=== PATIENT | female | born 1935 | race Caucasian/White ===

== ENCOUNTER 2016-07-17 10:30 | Observation (INO) | payer MEDICARE, OTHER ==
[2016-07-17] MEDS ORDERED: Sodium Chloride 0.9% 1,000 ML IV ONE (11:20)
--- NOTE | 2016-07-17 12:03 | EDM.PDOC ---
[id number]: 07/17/16 10:30 Source: Reports: Patient, EMS, Family History Limitations: Reports: Altered mental status, Physical impairment - History of Present Illness INITIAL COMMENTS - FREE TEXT/NARRATIVE: 80 y.o.w.f. with a h/o a fib, came to the ed today by ems after sutures were removed at her r eris. The skin cancer at her r eris, which was removed and sutures were applied to close the wound 7 days ago. No trauma. Wound at her r eris was profoundly bleeding, no pulsating bleed. Pt denied pain, Pt is on blood thinners S/P an aortic valve replacement. Her INR was 2.7 in the clinic today. Symptom Onset Date: 07/17/16 Symptom Onset Time: 09:00 Timing/Duration: Reports: Hour(s): Severity: mild Location, General: Reports: head - Related Data Allergies/ADRs: Allergies Allergy/AdvReac Type Severity Reaction Status Date / Time amiodarone Allergy Unknown Cannot Verified 05/04/16 15:59 Remember lidocaine Allergy Unknown Cannot Verified 05/04/16 15:59 Remember lincomycin HCl Allergy Unknown Cannot Verified 05/04/16 15:59 [From Lincocin] Remember minocycline HCl Allergy Unknown Cannot Verified 05/04/16 15:59 [From Minocin] Remember red (food color) Allergy Unknown Cannot Verified 05/04/16 15:59 Remember Skin Cleanser Combination Allergy Unknown Cannot Verified 05/04/16 15:59 No.4 Remember [From Minocin] Sulfa (Sulfonamide Allergy Unknown Cannot Verified 05/04/16 15:59 Antibiotics) Remember Home Meds: Home Meds Cholecalciferol (Vitamin D3) [Vitamin D3] 1,000 unit PO DAILY@1200 01/23/13 [ History] Isosorbide Mononitrate [Isosorbide Mononitrate ER] 15 mg PO BID 01/23/13 [ History] Latanoprost 1 drop EYEBOTH BEDTIME 01/23/13 [History] Lisinopril 5 mg PO DAILY 01/23/13 [History] Metoprolol Tartrate 50 mg PO DAILY 01/23/13 [History] Potassium Chloride [Klor-Con 8] 16 meq PO DAILY@1700 01/23/13 [History] Cyanocobalamin (Vitamin B-12) [B-12 Compliance] 1,000 mcg IM Q30D 05/04/16 [ History] OLANZapine [ZyPREXA] 2.5 mg PO DAILY 05/04/16 [History] OLANZapine [ZyPREXA] 10 mg PO BEDTIME 05/04/16 [History] Acetaminophen 650 mg PO Q4H PRN 07/17/16 [History] Polyethylene Glycol 3350 [MiraLAX] 17 gm PO DAILY 07/17/16 [History] Vilazodone [Viibryd] 20 mg PO BEDTIME 07/17/16 [History] Warfarin [Coumadin] 2.5 mg PO DAILY@1700 07/17/16 [History] buPROPion [Wellbutrin XL] 300 mg PO DAILY 07/17/16 [History] Ferrous Sulfate 325 mg PO DAILY #30 tablet 07/18/16 [Rx] Social & Family History - Family History Family Medical History: Noncontributory - Tobacco Use Smoking Status *Q: Never Smoker Second Hand Smoke Exposure: No - Caffeine Use Caffeine Use: Reports: None - Alcohol Use Days Per Week of Alcohol Use: 0 - Recreational Drug Use Recreational Drug Use: No ED ROS GENERAL - Review of Systems Review Of Systems: Unable To Obtain ED EXAM, GENERAL - Physical Exam Exam: See Below Exam Limited By: Physical impairment General Appearance: alert, WD/WN, mild distress Eye Exam: bilateral eye: normal inspection (periorbital edema left eye, no trauma) Ears: normal external exam Ear Exam: bilateral ear: auricle normal Nose: normal inspection, normal mucosa Throat/Mouth: Normal inspection, Normal lips Head: normocephalic, other (Blleeing LAC r ant eris) Neck: normal inspection, supple, non-tender Respiratory/Chest: no respiratory distress, lungs clear (poor insp effort), chest non-tender Cardiovascular: normal peripheral pulses, irregularly irregular Peripheral Pulses: 1+: femoral (L), femoral (R) GI/Abdominal: normal bowel sounds, soft, non tender, no organomegaly, no distention, no abnormal bruit (Female) Exam: Deferred Rectal (Female) Exam: Deferred Back Exam: normal inspection, full range of motion Extremities: normal inspection Neurological: alert, CN II-XII intact Psychiatric: depressed mood Skin Exam: Warm, Pallor Lymphatic: no adenopathy ED CARDIOLOGY PROCEDURES - Additional/Other Procedure(s) Other (Free Text) Procedure(s): Procedure: LAC repair r eris. Wound measured 2 cm in length, clean edges, full thickness LAC. The wound was repaired under aseptic technique. 2 cc 1% lido. irrigated with betadiene. 8 sutures were applied using 4/0 ethilon sutures. Wound was closed, dressing was applied, no complication. EKG INTERPRETATION EKG Date: 07/17/16 Time: 11:45 Rhythm: a-fib Rate (beats/min): 114 [place]: RAD-right axis deviation P-wave: absent QRS: RBBB ST-T: normal QT: prolonged Comparison: NA - no prior EKG Course - Vital Signs Text/Narrative:: 80 y.o.w.f. came to the ed today by ems after sutures were removed at her r eris. The skin cancer at her r eris, which was removed and sutures were applied to close the wound 7 days ago. No trauma. Wound at her r eris was profoundly bleeding, no pulsating bleed. Pt denied pain, Pt is on blood thinners S/P an aortic valve replacement. Her INR was 2.7 in the clinic today. PE: pale and weak appearing 80 y.o.w.f with a bleeding LAR r ant eris. BP 114/ 78 Procedure: Please see note above Labs: CBC was nl, INR was 2.45 ECG: A fib with RVR rate 114 Impression: Skin CA, S/P Vasovagal Syncopal episode (DDx Sx) afib with RVR (105- 118), dehydration, LAC r eris, repaired, Gen weakness/Dizziness with activity. DNR/DNI Reexam: after the wound was repaired, pt was sitting in the wheel chair and suddenly was unresponsive to voice for about 5 miin till she was put back in her bed. BP was 101/76 puls 114, afib. was following commands. Denied pain. it appeared, pt had a vasovagal syncopy what she had in the past as per . As per , pt is a DNR/DNI. Tx: NS Reexam: afib with a rate 105-118, pt was eating while in the wheel chair. After she ate, pt got extremely Dizzy when she was attempting to get up to walk. Consultation: Dr. Nova: Accepted the pt for admission to tele OBS Last Recorded V/S: Last Vital Signs Temp 36.9 C 07/18/16 07:40 Pulse 91 07/18/16 08:43 Resp 18 07/18/16 07:40 BP 103/68 07/18/16 08:43 Pulse Ox 97 07/18/16 07:40 - Orders/Labs/Meds Labs: Laboratory Tests 07/17/16 07/17/16 07/17/16 Range/Units 11:30 11:30 11:30 WBC 9.3 (4.5-12.0) X10-3/uL RBC 3.66 (3.23-5.20) x10(6)uL Hgb 11.6 (11.5-15.5) g/dL Hct 34.1 (30.0-51.3) % MCV 93.1 (80-96) fL MCH 31.7 (27.7-33.6) pg MCHC 34.1 (32.2-35.4) g/dL RDW 13.3 (11.5-15.5) % Plt Count 199 (125-369) X10(3)uL MPV 10.1 (7.4-10.4) fL Add Manual Diff Yes Neutrophils % (Manual) 80 (46-82) % Band Neutrophils % 1 (0-6) % Lymphocytes % (Manual) 13 (13-37) % Monocytes % (Manual) 6 (4-12) % PT 24.8 H (8.7-11.1) INR 2.42 H (0.89-1.13) Sodium 133 L (135-145) mmol/L Potassium 4.4 (3.5-5.3) mmol/L Chloride 103 (100-110) mmol/L Carbon Dioxide 24 (23-29) mmol/L BUN 25 H (8-23) mg/dL Creatinine 1.0 (0.6-1.3) mg/dL Est Cr Clr Drug Dosing TNP Estimated GFR (MDRD) 54 L (>60) BUN/Creatinine Ratio 25.0 H (9-20) Glucose 131 H (80-116) mg/dL Lactic Acid (0.5-2.2) mmol/L Calcium 8.7 (8.6-10.2) mg/dL Troponin I (0.02-0.06) NG/ML B-Natriuretic Peptide (0-100) pg/mL 03/31/17 03/31/17 03/31/17 Range/Units 11:30 11:30 11:30 WBC (4.5-12.0) X10-3/uL RBC (3.23-5.20) x10(6)uL Hgb (11.5-15.5) g/dL Hct (30.0-51.3) % MCV (80-96) fL MCH (27.7-33.6) pg MCHC (32.2-35.4) g/dL RDW (11.5-15.5) % Plt Count (125-369) X10(3)uL MPV (7.4-10.4) fL Add Manual Diff Neutrophils % (Manual) (46-82) % Band Neutrophils % (0-6) % Lymphocytes % (Manual) (13-37) % Monocytes % (Manual) (4-12) % PT (8.7-11.1) INR (0.89-1.13) Sodium (135-145) mmol/L Potassium (3.5-5.3) mmol/L Chloride (100-110) mmol/L Carbon Dioxide (23-29) mmol/L BUN (8-23) mg/dL Creatinine (0.6-1.3) mg/dL Est Cr Clr Drug Dosing Estimated GFR (MDRD) (>60) BUN/Creatinine Ratio (9-20) Glucose (80-116) mg/dL Lactic Acid 1.2 (0.5-2.2) mmol/L Calcium (8.6-10.2) mg/dL Troponin I 0.01 L (0.02-0.06) NG/ML B-Natriuretic Peptide 54 (0-100) pg/mL Meds: Medications Discontinued Medications Generic Name Dose Route Start Last Admin Trade Name Freq PRN Reason Stop Dose Admin Acetaminophen 650 mg 07/17/16 17:40 Tylenol PO Q4H PRN Pain/Fever Cholecalciferol 1,000 units 07/18/16 12:00 Vitamin D3 PO DAILY@1200 DEX Heparin Sodium (Porcine) 500 units 07/17/16 14:00 07/18/16 09:00 Heparin Lock Flush 100 Units/Ml Syringe FLUSH 500 units ASDIRECTED PRN Administration Other Sodium Chloride 1,000 mls @ 500 mls/hr 07/17/16 11:20 07/17/16 11:35 Normal Saline IV 07/17/16 13:19 500 mls/hr .BOLUS ONE Administration Sodium Chloride 1,000 mls @ 75 mls/hr 07/17/16 17:45 07/17/16 18:43 Normal Saline IV 75 mls/hr ASDIRECTED DEX Administration Isosorbide Mononitrate 15 mg 07/17/16 21:00 07/18/16 08:43 Imdur PO 15 mg BID DEX Administration Latanoprost 0 ml 07/17/16 21:00 Xalatan 0.005% Ophth Soln EYEBOTH BEDTIME DEX Lidocaine HCl 2 ml 07/17/16 16:00 Xylocaine 1% INFILT 07/17/16 16:01 .STK-MED ONE Lisinopril 5 mg 07/18/16 09:00 07/18/16 08:43 Prinivil PO 5 mg DAILY DEX Administration Metoprolol Succinate 50 mg 07/18/16 09:00 07/18/16 08:43 Toprol Xl PO 50 mg DAILY DEX Administration Non-Formulary Medication 1,000 mcg 07/17/16 17:45 Cyanocobalamin (Vitamin B-12) [B-12 Compliance] IM Q30D DEX Vilazodone [Viibryd] 20 mg 07/17/16 21:00 07/17/16 20:58 20mg Own Med PO 20 mg BEDTIME DEX Administration Bupropion [ 300 mg 07/18/16 09:00 07/18/16 08:43 Wellbutrin Xl] 300mg PO 300 mg Own Med DAILY DEX Administration Olanzapine 2.5 mg 07/18/16 09:00 07/18/16 08:43 Zyprexa PO 2.5 mg DAILY DEX Administration Olanzapine 10 mg 07/17/16 21:00 07/17/16 20:58 Zyprexa PO 10 mg BEDTIME DEX Administration Ondansetron HCl 8 mg 07/17/16 14:16 Zofran IV Q4H PRN Nausea/Vomiting Polyethylene Glycol 17 gm 07/18/16 09:00 Miralax PO DAILY DEX Potassium Chloride 16 meq 07/18/16 17:00 Klor-Con 8 PO DAILY@1700 DEX Sodium Chloride 10 ml 07/17/16 14:16 04/01/17 09:00 Saline Flush FLUSH 10 ml ASDIRECTED PRN Administration Keep Vein Open Warfarin Sodium 2.5 mg 07/17/16 17:00 07/17/16 18:30 Coumadin PO 2.5 mg DAILY@1700 DEX Administration Departure - Departure Time of Disposition: 11:20 Disposition: Admitted As Inpatient 68 Condition: fair Clinical Impression: Syncopal episodes Qualifiers: Syncope type: vasovagal syncope Qualified Code(s): R55 - Syncope and collapse
[2016-07-17] MEDS ORDERED: Sodium Chloride 0.9% 10 ML Syringe FLUSH PRN (14:16)
[2016-07-17] MEDS ORDERED: Ondansetron 4 MG/2 ML SDV IV PRN (14:16)
[2016-07-17] MEDS ORDERED: Lidocaine 1% 20 ML MDV INFILT ONE (16:00)
[2016-07-17] MEDS ORDERED: WARFARIN 2.5 MG PO SCH (17:00)
--- NOTE | 2016-07-17 17:39 | PCM.HP ---
H&P History of Present Illness - General Date of Service: 07/17/16 Admit Problem/Dx: Admission Diagnosis/Problem Admission Diagnosis/Problem Weakness Source of Information: Patient, Significant Other - History of Present Illness Initial Comments - Free Text/Narative: This is a 80-year-old female patient that had a skin cancer on the left temporal region removed a week ago. She's on Coumadin for heart valve and atrial fibrillation. She was bridged and restarted on her Coumadin. Today at [facility] they remove the sutures. After they removed the sutures the wound started bleeding profusely. They called the ambulance and brought her to the emergency room. While in the ER patient had a vasovagal. They observed her for a while and she was unable to walk. Her atrial fibrillation rate was 105 and they felt she should be observed. She was admitted. They resutured her wound and put a compression bandage on to stop bleeding. She states she feels better now with less weakness and no dizziness. - Related Data Allergies/Adverse Reactions: Allergies Allergy/AdvReac Type Severity Reaction Status Date / Time amiodarone Allergy Unknown Cannot Verified 05/04/16 15:59 Remember lidocaine Allergy Unknown Cannot Verified 05/04/16 15:59 Remember lincomycin HCl Allergy Unknown Cannot Verified 05/04/16 15:59 [From Lincocin] Remember minocycline HCl Allergy Unknown Cannot Verified 05/04/16 15:59 [From Minocin] Remember red (food color) Allergy Unknown Cannot Verified 05/04/16 15:59 Remember Skin Cleanser Combination Allergy Unknown Cannot Verified 05/04/16 15:59 No.4 Remember [From Minocin] Sulfa (Sulfonamide Allergy Unknown Cannot Verified 05/04/16 15:59 Antibiotics) Remember Home Medications: Home Meds Cholecalciferol (Vitamin D3) [Vitamin D3] 1,000 unit PO DAILY@1200 01/23/13 [ History] Isosorbide Mononitrate [Isosorbide Mononitrate ER] 15 mg PO BID 01/23/13 [ History] Latanoprost 1 drop EYEBOTH BEDTIME 01/23/13 [History] Lisinopril 5 mg PO DAILY 01/23/13 [History] Metoprolol Tartrate 50 mg PO DAILY 01/23/13 [History] Potassium Chloride [Klor-Con 8] 16 meq PO DAILY@1700 01/23/13 [History] Cyanocobalamin (Vitamin B-12) [B-12 Compliance] 1,000 mcg IM Q30D 05/04/16 [ History] OLANZapine [ZyPREXA] 2.5 mg PO DAILY 05/04/16 [History] OLANZapine [ZyPREXA] 10 mg PO BEDTIME 05/04/16 [History] Acetaminophen 650 mg PO Q4H PRN 07/17/16 [History] Polyethylene Glycol 3350 [MiraLAX] 17 gm PO DAILY 07/17/16 [History] Vilazodone [Viibryd] 20 mg PO BEDTIME 07/17/16 [History] Warfarin [Coumadin] 2.5 mg PO DAILY@1700 07/17/16 [History] buPROPion [Wellbutrin XL] 300 mg PO DAILY 07/17/16 [History] Past Medical History HEENT History: Reports: Cataract Cardiovascular History: Reports: Afib, Heart valve replacement, Hypertension, Other (see below) Other Cardiovascular History: mitral valve [employer] History: Reports: Other OB/BYN History: partial hysterectomy? unsure. Musculoskeletal History: Reports: Other (see below) Other Musculoskeletal History: right knee pain. Hydrocortison shots on right knee Neurological History: Reports: Other (see below) Other Neuro History: dementia Psychiatric History: Reports: Dementia, Depression Other Hematologic History: takes vitamin b-12 Dermatologic History: Reports: Melanoma Other Dermatologic History: mole taken off on head. - Infectious Disease History Infectious Disease History: Reports: Chicken pox, Measles - Past Surgical History HEENT Surgical History: Reports: Cataract surgery Cardiovascular Surgical History: Reports: Valve replacement Neurological Surgical History: Reports: None Musculoskeletal Surgical History: Reports: None Dermatological Surgical History: Reports: Skin biopsy Social & Family History - Family History Family Medical History: Noncontributory - Tobacco Use Smoking Status *Q: Never Smoker Second Hand Smoke Exposure: No - Caffeine Use Caffeine Use: Reports: None - Alcohol Use Days Per Week of Alcohol Use: 0 - Recreational Drug Use Recreational Drug Use: No H&P Review of Systems - Review of Systems: Review Of Systems: See Below General: Reports: no symptoms HEENT: Reports: no symptoms Pulmonary: Reports: No Symptoms Cardiovascular: Reports: no symptoms Gastrointestinal: Reports: No symptoms Genitourinary: Reports: no symptoms Musculoskeletal: Reports: no symptoms Skin: Reports: other (See history of present illness) Psychiatric: Reports: depression Neurological: Reports: No Symptoms Immunologic: Reports: no symptoms Exam - Exam Exam: See Below - Vital Signs Vital Signs: Last Vital Signs Temp 97.6 F 07/17/16 14:16 Pulse 89 07/17/16 14:16 Resp 20 07/17/16 14:16 BP 111/75 07/17/16 14:16 Pulse Ox 99 07/17/16 14:16 Weight: 206 lb 1 oz - Exam General: alert, oriented, cooperative HEENT: Hearing intact, Posterior pharynx clear, Pupils reactive, TMs clear, Other (Left eye is swollen with some ecchymosis) Neck: supple, trachea midline Lungs: Clear to auscultation, Normal respiratory effort Cardiovascular: irregular rhythm, systolic murmur Abdomen: normal bowel sounds, soft. No: organomegaly, tenderness Back Exam: normal inspection Extremities: normal inspection Skin: other (Wound is covered currently with compression bandage. I did not remove it today.) Neuro Extensive - Mental Status: alert, oriented x3 Psychiatric: alert, depressed - Patient Data Result Diagrams: 07/17/16 11:30 07/17/16 11:30 *Q Meaningful Use (ADM) - VTE *Q VTE Criteria *Q: - Stroke *Q Stroke Criteria *Q: - AMI *Q AMI Criteria *Q: - Problem List (1) Weakness SNOMED Code(s): 36925713 ICD Code: R53.1 - WEAKNESS Status: Acute Current Visit: Yes (2) "Fall on same level from slipping, tripping or stumbling " SNOMED Code(s): 251746815 ICD Code: W01.0XXA - FALL SAME LEV FROM SLIP/TRIP W/O STRIKE AGAINST OBJECT, INIT Status: Acute Current Visit: No (3) Afib, Atrial fibrillation SNOMED Code(s): 82568038 ICD Code: I48.91 - UNSPECIFIED ATRIAL FIBRILLATION Status: Acute Current Visit: No Problem List Initiated/Reviewed/Updated: Yes Orders Last 24hrs: Active Orders 24 hr Category Date Time Status Telemetry Monitoring [Cardiac Monitoring] [RC] .As Care 07/17/16 15:30 Active Directed Head wo Cont [CT] Routine Exams 07/17/16 14:24 Taken Medication Orders Heparin Sodium (Porcine) (Heparin Lock Flush 100 Units/Ml Syringe) 500 units FLUSH ASDIRECTED PRN PRN Reason: Other Last Admin: 07/17/16 14:05 Dose: 500 units Ondansetron HCl (Zofran) 8 mg IV Q4H PRN PRN Reason: Nausea/Vomiting Sodium Chloride (Saline Flush) 10 ml FLUSH ASDIRECTED PRN PRN Reason: Keep Vein Open Assessment/Plan Comment:: 1. For observation. 2. Continue compression bandage over the wound. 3. Ambulate with assist. 4. IV fluids. 5. Recheck CBC in the a.m. to see she's lost any significant blood. 6. Monitor her with telemetry to see what her ventricular rate is. 7. Discussed living will status. And she is a DO NOT RESUSCITATE/DO NOT INTUBATE. 8. Patient may take her home pills. 9. Continue Coumadin therapy as previous.
[2016-07-17] MEDS ORDERED: Acetaminophen 325 MG Tab PO PRN (17:40)
[2016-07-17] MEDS ORDERED: [UNRECOGNIZED DRUG - OTHER] IM SCH (17:45)
[2016-07-17] MEDS ORDERED: Sodium Chloride 0.9% 1,000 ML IV SCH (17:45)
[2016-07-17] MEDS ORDERED: CYANOCOBALAMIN 1000 MCG IM SCH (17:45)
[2016-07-17] MEDS: ISOSORBIDE MONONITRATE 30 MG PO SCH (20:58)
[2016-07-17] MEDS ORDERED: Latanoprost 0.005% Ophth Soln 2.5 ML Bottle EYEBOTH SCH (21:00)
[2016-07-17] MEDS ORDERED: VILAZODONE 20 MG PO SCH (21:00)
[2016-07-17] MEDS ORDERED: OLANZAPINE 10 MG PO SCH (21:00)
--- NOTE | 2016-07-18 07:40 | PCM.PN ---
- General Info Date of Service: 07/18/16 Admission Dx/Problem (Free Text): 80-year-old female patient that has no concerns today. She is a blunted affect and responsively slowly which I think is normal for her. She denies any bleeding, dizziness, lightheadedness, chest pain, palpitations, shortness of breath with exertion. - Patient Data Vitals - most recent: Last Vital Signs Temp 98.5 F 07/18/16 02:30 Pulse 104 H 07/18/16 02:30 Resp 20 07/18/16 02:30 BP 106/65 07/18/16 02:30 Pulse Ox 96 07/18/16 02:30 Weight - most recent: 206 lb 1 oz I&O - last 24 hours: Intake & Output 07/17/16 07/18/16 07/18/16 22:59 06:59 14:59 Intake Total 884 Balance 884 Lab Results last 24 hrs: Laboratory Results - last 24 hr 07/18/16 Range/Units 06:18 WBC 7.2 (4.5-12.0) X10-3/uL RBC 3.34 (3.23-5.20) x10(6)uL Hgb 10.0 L (11.5-15.5) g/dL Hct 30.9 (30.0-51.3) % MCV 92.3 (80-96) fL MCH 29.9 (27.7-33.6) pg MCHC 32.4 (32.2-35.4) g/dL RDW 13.5 (11.5-15.5) % Plt Count 165 (125-369) X10(3)uL MPV 9.8 (7.4-10.4) fL Neut % (Auto) 67.7 (46-82) % Lymph % (Auto) 15.6 (13-37) % Delta % (Auto) 11.8 (4-12) % Eos % (Auto) 2 (1.0-5.0) % Baso % (Auto) 3 H (0-2) % Neut # (Auto) 4.9 (1.6-8.3) # Lymph # (Auto) 1.1 (0.6-5.0) # Delta # (Auto) 0.8 (0.0-1.3) # Eos # (Auto) 0.2 (0.0-0.8) # Baso # (Auto) 0.2 (0.0-0.2) # Med Orders - Current: Current Medications Acetaminophen (Tylenol) 650 mg PO Q4H PRN PRN Reason: Pain/Fever Cholecalciferol (Vitamin D3) 1,000 units PO DAILY@1200 [facility] Heparin Sodium (Porcine) (Heparin Lock Flush 100 Units/Ml Syringe) 500 units FLUSH ASDIRECTED PRN PRN Reason: Other Last Admin: 07/17/16 14:05 Dose: 500 units Sodium Chloride (Normal Saline) 1,000 mls @ 75 mls/hr IV ASDIRECTED [facility] Last Admin: 07/17/16 18:43 Dose: 75 mls/hr Isosorbide Mononitrate (Imdur) 15 mg PO BID [facility] Last Admin: 07/17/16 20:58 Dose: 15 mg Latanoprost (Xalatan 0.005% Ophth Soln) ml EYEBOTH BEDTIME [facility] Lisinopril (Prinivil) 5 mg PO DAILY [facility] Metoprolol Succinate (Toprol Xl) 50 mg PO DAILY [facility] Vilazodone [Viibryd] (20mg Own Med ) 20 mg PO BEDTIME [facility] Last Admin: 07/17/16 20:58 Dose: 20 mg Bupropion [ Wellbutrin Xl] 300mg Own Med 300 mg PO DAILY [facility] Olanzapine (Zyprexa) 2.5 mg PO DAILY [facility] Olanzapine (Zyprexa) 10 mg PO BEDTIME [facility] Last Admin: 07/17/16 20:58 Dose: 10 mg Ondansetron HCl (Zofran) 8 mg IV Q4H PRN PRN Reason: Nausea/Vomiting Polyethylene Glycol (Miralax) 17 gm PO DAILY [facility] Potassium Chloride (Klor-Con 8) 16 meq PO DAILY@1700 [facility] Sodium Chloride (Saline Flush) 10 ml FLUSH ASDIRECTED PRN PRN Reason: Keep Vein Open Warfarin Sodium (Coumadin) 2.5 mg PO DAILY@1700 [facility] Last Admin: 07/17/16 18:30 Dose: 2.5 mg Discontinued Medications Sodium Chloride (Normal Saline) 1,000 mls @ 500 mls/hr IV .BOLUS ONE Stop: 07/17/16 13:19 Last Admin: 07/17/16 11:35 Dose: 500 mls/hr Lidocaine HCl (Xylocaine 1%) 2 ml INFILT .STK-MED ONE Stop: 07/17/16 16:01 Non-Formulary Medication (Cyanocobalamin (Vitamin B-12) [B-12 Compliance]) 1, 000 mcg IM Q30D DEX - Exam General: alert, cooperative Lungs: Clear to auscultation, Normal respiratory effort Cardiovascular: No Murmurs, Irregular Rhythm Extremities: no edema Skin: other (Her right eye is swollen with ecchymosis. I did not remove the bandage today.) Psy/Mental Status: alert. No: normal affect, normal mood - Problem List & Annotations (1) Weakness SNOMED Code(s): 45720374 Code(s): R53.1 - WEAKNESS Status: Acute Current Visit: Yes (2) Afib, Atrial fibrillation SNOMED Code(s): 70507770 Code(s): I48.91 - UNSPECIFIED ATRIAL FIBRILLATION Status: Acute Current Visit: No (3) Bleeding from wound SNOMED Code(s): 581383573 Code(s): T14.8 - OTHER INJURY OF UNSPECIFIED BODY REGION Status: Acute Current Visit: Yes - Problem List Review Problem List Initiated/Reviewed/Updated: Yes - My Orders Last 24 Hours: My Active Orders 07/17/16 17:00 Warfarin [Coumadin] 2.5 mg PO DAILY@1700 07/17/16 17:40 Acetaminophen [Tylenol] 650 mg PO Q4H PRN 07/17/16 17:45 Sodium Chloride 0.9% [Normal Saline] 1,000 ml IV ASDIRECTED 07/17/16 21:00 Isosorbide Mononitrate [Imdur] 15 mg PO BID Latanoprost [Xalatan 0.005% Ophth Soln] DOSE ml EYEBOTH BEDTIME OLANZapine [ZyPREXA] 10 mg PO BEDTIME Vilazodone [Viibryd] 20 mg PO BEDTIME 07/18/16 09:00 Lisinopril [Prinivil] 5 mg PO DAILY Metoprolol Succinate [Toprol XL] 50 mg PO DAILY OLANZapine [ZyPREXA] 2.5 mg PO DAILY Polyethylene Glycol 3350 [MiraLAX] 17 gm PO DAILY buPROPion [Wellbutrin XL] 300 mg PO DAILY 07/18/16 12:00 Cholecalciferol (Vitamin D3) [Vitamin D3] 1,000 units PO DAILY@1200 07/18/16 17:00 Potassium Chloride [Klor-Con 8] 16 meq PO DAILY@1700 - Plan Plan:: 1. discharged to [facility] a period 2. Same medications as before. 3. Leave bandage on until Wednesday which is 2 days from now. 4. Follow up with Dr. Moise for suture removal.
--- NOTE | 2016-07-18 07:52 | PCM.DCSUM1 ---
Discharge Summary - Hospital Course Free Text/Narrative:: Hospital course-patient was observed overnight. She was given some IV fluid. Telemetry was ordered. She had a little bit tachycardia occasionally when she had her metoprolol her rate was around the 90s. She is able to walk without any difficulty and was at her normal functioning. She has history of depression and a flat affect which is normal for her. We did not remove the pressure bandage there she dropped her hemoglobin to over 10 from 11. No further bleeding other than she had some swelling in her right eye some ecchymosis. We'll discharge her home with an ferrous sulfate 325 mg for one month. The staff at [facility] a call Dr. Moise informed what happened and let him arrange suture removal for this wound. Brief History: This is a 80-year-old female patient that had a skin cancer on the left temporal region removed a week ago. She's on Coumadin for heart valve and atrial fibrillation. She was bridged and restarted on her Coumadin. Today at [facility] they remove the sutures. After they removed the sutures the wound started bleeding profusely. They called the ambulance and brought her to the emergency room. While in the ER patient had a vasovagal. They observed her for a while and she was unable to walk. Her atrial fibrillation rate was 105 and they felt she should be observed. She was admitted. They resutured her wound and put a compression bandage on to stop bleeding. She states she feels better now with less weakness and no dizziness. - Discharge Data Discharge Date: 07/18/16 Discharge Disposition: Home, Self-Care 01 Condition: Good - Discharge Diagnosis/Problem(s) (1) Weakness SNOMED Code(s): 46077364 ICD Code: R53.1 - WEAKNESS Status: Acute Current Visit: Yes (2) Afib, Atrial fibrillation SNOMED Code(s): 88707928 ICD Code: I48.91 - UNSPECIFIED ATRIAL FIBRILLATION Status: Acute Current Visit: No (3) Bleeding from wound SNOMED Code(s): 453716424 ICD Code: T14.8 - OTHER INJURY OF UNSPECIFIED BODY REGION Status: Acute Current Visit: Yes - Patient Instructions Diet: Regular Diet as Tolerated Activity: As Tolerated Activity, Other: walkeer Driving: Do Not Drive Showering/Bathing: May Shower Other/Special Instructions: 1. Followup with Dr. Moise in regards to the wound as stated above. - Discharge Plan Prescriptions/Med Rec: Ferrous Sulfate 325 mg PO DAILY #30 tablet Home Medications: Home Meds Cholecalciferol (Vitamin D3) [Vitamin D3] 1,000 unit PO DAILY@1200 01/23/13 [ History] Isosorbide Mononitrate [Isosorbide Mononitrate ER] 15 mg PO BID 01/23/13 [ History] Latanoprost 1 drop EYEBOTH BEDTIME 01/23/13 [History] Lisinopril 5 mg PO DAILY 01/23/13 [History] Metoprolol Tartrate 50 mg PO DAILY 01/23/13 [History] Potassium Chloride [Klor-Con 8] 16 meq PO DAILY@1700 01/23/13 [History] Cyanocobalamin (Vitamin B-12) [B-12 Compliance] 1,000 mcg IM Q30D 05/04/16 [ History] OLANZapine [ZyPREXA] 2.5 mg PO DAILY 05/04/16 [History] OLANZapine [ZyPREXA] 10 mg PO BEDTIME 05/04/16 [History] Acetaminophen 650 mg PO Q4H PRN 07/17/16 [History] Polyethylene Glycol 3350 [MiraLAX] 17 gm PO DAILY 07/17/16 [History] Vilazodone [Viibryd] 20 mg PO BEDTIME 07/17/16 [History] Warfarin [Coumadin] 2.5 mg PO DAILY@1700 07/17/16 [History] buPROPion [Wellbutrin XL] 300 mg PO DAILY 07/17/16 [History] Ferrous Sulfate 325 mg PO DAILY #30 tablet 07/18/16 [Rx] Forms: ED Department Discharge Referrals: Terry Mace MD [Primary Care Provider] - - Discharge Summary/Plan Comment DC Time >30 min.: No - Patient Data Vitals - Most Recent: Last Vital Signs Temp 98.5 F 07/18/16 02:30 Pulse 104 H 07/18/16 02:30 Resp 20 07/18/16 02:30 BP 106/65 07/18/16 02:30 Pulse Ox 96 07/18/16 02:30 Weight - Most Recent: 206 lb 1 oz I&O - Last 24 hours: Intake & Output 07/17/16 07/18/1617 22:59 06:59 14:59 Intake Total 884 Balance 884 Lab Results - Last 24 hrs: Laboratory Results - last 24 hr 07/18/16 Range/Units 06:18 WBC 7.2 (4.5-12.0) X10-3/uL RBC 3.34 (3.23-5.20) x10(6)uL Hgb 10.0 L (11.5-15.5) g/dL Hct 30.9 (30.0-51.3) % MCV 92.3 (80-96) fL MCH 29.9 (27.7-33.6) pg MCHC 32.4 (32.2-35.4) g/dL RDW 13.5 (11.5-15.5) % Plt Count 165 (125-369) X10(3)uL MPV 9.8 (7.4-10.4) fL Neut % (Auto) 67.7 (46-82) % Lymph % (Auto) 15.6 (13-37) % [place] % (Auto) 11.8 (4-12) % Eos % (Auto) 2 (1.0-5.0) % Baso % (Auto) 3 H (0-2) % Neut # (Auto) 4.9 (1.6-8.3) # Lymph # (Auto) 1.1 (0.6-5.0) # [place] # (Auto) 0.8 (0.0-1.3) # Eos # (Auto) 0.2 (0.0-0.8) # Baso # (Auto) 0.2 (0.0-0.2) # Med Orders - Current: Current Medications Acetaminophen (Tylenol) 650 mg PO Q4H PRN PRN Reason: Pain/Fever Cholecalciferol (Vitamin D3) 1,000 units PO DAILY@1200 DEX Heparin Sodium (Porcine) (Heparin Lock Flush 100 Units/Ml Syringe) 500 units FLUSH ASDIRECTED PRN PRN Reason: Other Last Admin: 07/17/16 14:05 Dose: 500 units Sodium Chloride (Normal Saline) 1,000 mls @ 75 mls/hr IV ASDIRECTED DEX Last Admin: 07/17/16 18:43 Dose: 75 mls/hr Isosorbide Mononitrate (Imdur) 15 mg PO BID [facility] Last Admin: 07/17/16 20:58 Dose: 15 mg Latanoprost (Xalatan 0.005% Ophth Soln) ml EYEBOTH BEDTIME [facility] Lisinopril (Prinivil) 5 mg PO DAILY [facility] Metoprolol Succinate (Toprol Xl) 50 mg PO DAILY [facility] Vilazodone [Viibryd] (20mg Own Med ) 20 mg PO BEDTIME [facility] Last Admin: 07/17/16 20:58 Dose: 20 mg Bupropion [ Wellbutrin Xl] 300mg Own Med 300 mg PO DAILY [facility] Olanzapine (Zyprexa) 2.5 mg PO DAILY [facility] Olanzapine (Zyprexa) 10 mg PO BEDTIME [facility] Last Admin: 07/17/16 20:58 Dose: 10 mg Ondansetron HCl (Zofran) 8 mg IV Q4H PRN PRN Reason: Nausea/Vomiting Polyethylene Glycol (Miralax) 17 gm PO DAILY [facility] Potassium Chloride (Klor-Con 8) 16 meq PO DAILY@1700 [facility] Sodium Chloride (Saline Flush) 10 ml FLUSH ASDIRECTED PRN PRN Reason: Keep Vein Open Warfarin Sodium (Coumadin) 2.5 mg PO DAILY@1700 [facility] Last Admin: 07/17/16 18:30 Dose: 2.5 mg Discontinued Medications Sodium Chloride (Normal Saline) 1,000 mls @ 500 mls/hr IV .BOLUS ONE Stop: 07/17/16 13:19 Last Admin: 07/17/16 11:35 Dose: 500 mls/hr Lidocaine HCl (Xylocaine 1%) 2 ml INFILT .STK-MED ONE Stop: 07/17/16 16:01 Non-Formulary Medication (Cyanocobalamin (Vitamin B-12) [B-12 Compliance]) 1, 000 mcg IM Q30D DEX *Q Meaningful Use (DIS) - VTE *Q VTE Criteria *Q: - Stroke *Q Stroke Criteria *Q: - AMI *Q AMI Criteria *Q:
[2016-07-18] MEDS: ISOSORBIDE MONONITRATE 30 MG PO SCH (08:43)
[2016-07-18 08:44] VITALS: BP 103/68
[2016-07-18] MEDS ORDERED: Polyethylene Glycol 3350 Powder 238 GM Bot PO SCH (09:00)
[2016-07-18] MEDS ORDERED: LISINOPRIL 5 MG PO SCH (09:00)
[2016-07-18] MEDS ORDERED: METOPROLOL SUCCINATE 50 MG PO SCH (09:00)
[2016-07-18] MEDS ORDERED: Metoprolol Tartrate 50 MG Tab PO SCH (09:00)
[2016-07-18] MEDS ORDERED: OLANZAPINE 2.5 MG PO SCH (09:00)
[2016-07-18] MEDS ORDERED: BUPROPION 300 MG PO SCH (09:00)
[2016-07-18] MEDS ORDERED: Cholecalciferol (Vitamin D3) 1,000 Unit Tab PO SCH (12:00)
[2016-07-18] MEDS ORDERED: POTASSIUM CHLORIDE 8 MEQ PO SCH (17:00)
--- NOTE | 2016-07-20 08:50 | CT ---
INDICATION: Dizziness, on blood thinners. Fall, hit forehead. CT HEAD WITHOUT CONTRAST: Serial contiguous 2.5 and 5-mm sections were obtained through the brain 07/17/2016. No comparisons were available. A retention cyst is noted in the middle to right frontal air cell. The paranasal sinuses were otherwise unremarkable. Mastoid air cells, as visualized, were well aerated. No evidence of a cranial fracture site was identified. No scalp hematoma was seen. Heavy vertebral artery and to a slightly lesser extent internal carotid artery calcifications are noted, compatible with cerebrovascular disease. Patchy decreased density in the white matter is compatible with moderate degree of microvascular type changes, although other cause of leukoencephalopathy - patchy areas of decreased density in the white matter - cannot be excluded. No shift of midline structures was seen. Ventricles are slightly prominent, suggesting central atrophy. Cortical sulci are also somewhat prominent, compatible with cortical atrophy - generalized atrophy is fairly symmetrical. No focal abnormal areas of density were identified to strongly suggest an acute abnormality, such as a CVA, hemorrhage, or hematoma. Calcifications are noted in a similar location of both globes - superior/ posterior surface of the globe, most likely representing calcified senile scleral plaques, which likely are not of clinical significance. They are fairly symmetrical. IMPRESSION: 1. No definite acute intracranial abnormality. 2. White matter changes compatible with microvascular disease, although other cause of leukoencephalopathy cannot be excluded. 3. Generalized atrophy. 4. Arterial calcifications compatible with cerebrovascular disease. 5. Calcified senile scleral plaques are noted at both globes. Total Exam DLP = 949.36 mGy-cm. MTDD
== END 2016-07-18 11:00 | disposition home or self-care (01) ==
LOC: FB.ED 10:30 → FB.MS 14:20
PROVIDERS: ADMIT Family Medicine; ATTEND Family Medicine
DX: R53.1 Weakness (principal); I48.91 Unspecified atrial fibrillation; T14.8 Other injury of unspecified body region; Z79.01 Long term (current) use of anticoagulants; Z79.899 Other long term (current) drug therapy; Z88.1 Allergy status to other antibiotic agents; Z88.8 Allergy status to other drugs, medicaments and biological substances; Z88.2 Allergy status to sulfonamides; I10 Essential (primary) hypertension; F32.9 Major depressive disorder, single episode, unspecified; Z95.2 Presence of prosthetic heart valve; Z98.890 Other specified postprocedural states; W01.0XXA Fall on same level from slipping, tripping and stumbling without subsequent striking against object, initial encounter
CPT/HCPCS: 12001; 36415; 70450; 80048; 83605; 83880; 84484; 85025; 85610; 87040; 93005; 96360; 96361; 99285; A9270; G0378; J1642; J7040; J7050; 99217; 99220

== ENCOUNTER 2016-07-22 06:59 | Inpatient (IN) | payer MEDICARE, OTHER ==
--- NOTE | 2016-07-22 08:36 | EDM.PDOC ---
ED HPI GENERAL MEDICAL PROBLEM - General Chief Complaint: General Stated Complaint: HEAD BLEEDING AND HAS HAD SURGERY ON HER HEAD Time Seen by Provider: 07/22/16 07:00 Source of Information: Reports: Patient, EMS History Limitations: Reports: Altered mental status, Physical impairment - History of Present Illness INITIAL COMMENTS - FREE TEXT/NARRATIVE: 80 years old w f h/o a fib, on Coumadin, came to the ed due to a wound at her right temporal area. A melanoma was removed. Pt was seen by Dr. Moise yesterday for wound revision.Pt came back to the ed today by ems because of a rebleed at the surgical site. Blood is using through the dressing. I have seen the patient in the ed last week after the pt was bleeding for the same surgical wound after the sutures were removed. 7 sutures were applied at that time, bleeding stopped. Pt was [facility] for other med issues at the time. Pt is a poor historian, no family is present. No N/V/D. Pt is DNR/ DNI Onset: gradual Onset Date: 07/22/16 Onset Time: 02:00 Duration: Hour(s): Location: Reports: head (r temporal area) Severity: moderate Improves with: Reports: Other (applying pressure) Worsens with: Reports: Movement Context: Reports: Other (s/p skin mole removal) Associated Symptoms: Reports: denies other symptoms (poor historian, no family is present) - Related Data Allergies Allergy/AdvReac Type Severity Reaction Status Date / Time amiodarone Allergy Unknown Cannot Verified 05/04/16 15:59 Remember lidocaine Allergy Unknown Cannot Verified 05/04/16 15:59 Remember lincomycin HCl Allergy Unknown Cannot Verified 05/04/16 15:59 [From Lincocin] Remember minocycline HCl Allergy Unknown Cannot Verified 05/04/16 15:59 [From Minocin] Remember red (food color) Allergy Unknown Cannot Verified 05/04/16 15:59 Remember Skin Cleanser Combination Allergy Unknown Cannot Verified 05/04/16 15:59 No.4 Remember [From Minocin] Sulfa (Sulfonamide Allergy Unknown Cannot Verified 05/04/16 15:59 Antibiotics) Remember Home Meds: Home Meds Cholecalciferol (Vitamin D3) [Vitamin D3] 1,000 unit PO DAILY@1200 01/23/13 [ History] Isosorbide Mononitrate [Isosorbide Mononitrate ER] 15 mg PO BID 01/23/13 [ History] Latanoprost 1 drop EYEBOTH BEDTIME 01/23/13 [History] Lisinopril 5 mg PO DAILY 01/23/13 [History] Metoprolol Tartrate 50 mg PO DAILY 01/23/13 [History] Potassium Chloride [Klor-Con 8] 16 meq PO DAILY@1700 01/23/13 [History] Cyanocobalamin (Vitamin B-12) [B-12 Compliance] 1,000 mcg IM Q30D 05/04/16 [ History] OLANZapine [ZyPREXA] 2.5 mg PO DAILY 05/04/16 [History] OLANZapine [ZyPREXA] 10 mg PO BEDTIME 05/04/16 [History] Acetaminophen 650 mg PO Q4H PRN 07/17/16 [History] Polyethylene Glycol 3350 [MiraLAX] 17 gm PO DAILY 07/17/16 [History] Vilazodone [Viibryd] 20 mg PO BEDTIME 07/17/16 [History] Warfarin [Coumadin] 2.5 mg PO DAILY@1700 07/17/16 [History] buPROPion [Wellbutrin XL] 300 mg PO DAILY 07/17/16 [History] Ferrous Sulfate 325 mg PO DAILY #30 tablet 07/18/16 [Rx] Cephalexin [Keflex] 500 mg PO BID 07/22/16 [History] Past Medical History HEENT History: Reports: Cataract Cardiovascular History: Reports: Afib, Heart valve replacement, Hypertension, Other (see below) Other Cardiovascular History: mitral valve CONTENT CHECKER History: Reports: Other OB/BYN History: partial hysterectomy? unsure. Musculoskeletal History: Reports: Other (see below) Other Musculoskeletal History: right knee pain. Hydrocortison shots on right knee Neurological History: Reports: Other (see below) Other Neuro History: dementia Psychiatric History: Reports: Dementia, Depression Other Hematologic History: takes vitamin b-12 Dermatologic History: Reports: Melanoma Other Dermatologic History: mole taken off on head. - Infectious Disease History Infectious Disease History: Reports: Chicken pox, Measles - Past Surgical History HEENT Surgical History: Reports: Cataract surgery Cardiovascular Surgical History: Reports: Valve replacement Neurological Surgical History: Reports: None Musculoskeletal Surgical History: Reports: None Dermatological Surgical History: Reports: Skin biopsy Social & Family History - Family History Family Medical History: Noncontributory - Tobacco Use Smoking Status *Q: Never Smoker Second Hand Smoke Exposure: No - Caffeine Use Caffeine Use: Reports: None - Alcohol Use Days Per Week of Alcohol Use: 0 - Recreational Drug Use Recreational Drug Use: No ED ROS GENERAL - Review of Systems Review Of Systems: Unable To Obtain ED EXAM, GENERAL - Physical Exam Exam: See Below Exam Limited By: Physical impairment General Appearance: alert, WD/WN, mild distress Eye Exam: right eye: periorbital changes (periorbital hematoma), bilateral eye: PERRL Ears: normal external exam Ear Exam: bilateral ear: auricle normal, canal normal, TM normal Nose: normal inspection, normal mucosa Throat/Mouth: Normal inspection Head: facial swelling (r temporal ) Neck: normal inspection, supple, non-tender Respiratory/Chest: no respiratory distress, lungs clear, normal breath sounds ( poor inspiratory effort) Cardiovascular: normal peripheral pulses Peripheral Pulses: 1+: femoral (L), femoral (R) GI/Abdominal: normal bowel sounds, soft (Female) Exam: Deferred Rectal (Female) Exam: Deferred Back Exam: normal inspection Extremities: normal range of motion Neurological: alert, CN II-XII intact, other (sleepy) Psychiatric: depressed mood Skin Exam: Warm, Dry, Pallor, Wound/incision (righ temp area) Lymphatic: no adenopathy EKG INTERPRETATION EKG Date: 07/22/16 Time: 09:25 Rhythm: a-fib Rate (beats/min): 101 [place]: normal P-wave: absent QRS: normal ST-T: normal QT: normal Comparison: NA - no prior EKG Course - Vital Signs Text/Narrative:: 80 years old w f h/o afib, on Coumadin, came to the ed due to a wound at her right temporal area. A melanoma was removed. Pt was seen by Dt. Moise yesterday for wound revision.Pt came back to the ed by ems because of a rebleed at her surgical site. Blood is using through the dressing. I have seen the patient in the ed last week after the pt was bleeding for the surgical wound after the sutures were removed. 7 sutures were applied at that time, bleeding stopped. Pt was [facility] for other med issues at the time. Pt is a poor historian, no family is present. No N/V/D. Pt is DNR/DNI PE: bleeding from the surgical wound r temp, no pulsating bleed, periorbital hematoma Labs: INR 4.9 HGB 9.4 Impression: surgical wound bleeding, H/O Skin CA Consultation: Dr. Moise, Surgeon has seen the pt in the ed, recommended FFP before pt goes to the OR. Tx: FFP, pressure dressing Reexam: Pt was hemodynamically stable while here in the ED BP 109/57 pulse 88 Plan: Dr. Moise has accepted the patient for further care- OR, Admit Last Recorded V/S: Last Vital Signs Temp 36.6 C 07/22/16 15:00 Pulse 56 L 07/22/16 15:00 Resp 18 07/22/16 15:00 BP 130/77 07/22/16 20:23 Pulse Ox 99 07/22/16 15:00 - Orders/Labs/Meds Orders: Active Orders 24 hr Category Date Time Status Lactated Ringers [Ringers, Lactated] 1,000 ml Med 07/22/16 11:15 Active IV ASDIRECTED Sodium Chloride 0.9% [Normal Saline] 250 ml Med 07/22/16 09:00 Active IV ASDIRECTED Transfuse Fresh Frozen Plasma [COMM] Stat Oth 07/22/16 08:55 Ordered Resuscitation Status Routine Resus Stat 07/22/16 08:58 Ordered EKG 12 Lead [EK] Routine Ther 07/22/16 09:06 Stop Req Medication Orders Acetaminophen (Tylenol) 650 mg PO Q6H PRN PRN Reason: Pain (mild 1-3) Bupropion HCl (Wellbutrin Xl) 300 mg PO DAILY DEX Sodium Chloride (Normal Saline) 250 mls @ 100 mls/hr IV ASDIRECTED DEX Last Admin: 07/22/16 09:18 Dose: 100 mls/hr Lactated Ringer's (Ringers, Lactated) 1,000 mls @ 125 mls/hr IV ASDIRECTED DEX Last Admin: 07/22/16 16:06 Dose: 125 mls/hr Infusion: 07/22/16 16:06 Dose: 125 mls/hr Admin: 07/22/16 11:10 Dose: 125 mls/hr Isosorbide Mononitrate (Imdur) 15 mg PO BID DEX Last Admin: 07/22/16 20:23 Dose: 15 mg Latanoprost (Xalatan 0.005% Ophth Soln) 0 ml EYEBOTH BEDTIME [facility] Last Admin: 07/22/16 20:26 Dose: 1 drop Lisinopril (Prinivil) 5 mg PO DAILY [facility] Metoprolol Tartrate (Lopressor) 50 mg PO DAILY [facility] Olanzapine (Zyprexa) 2.5 mg PO DAILY [facility] Olanzapine (Zyprexa) 10 mg PO BEDTIME [facility] Last Admin: 07/22/16 20:32 Dose: 10 mg Potassium Chloride (Klor-Con 8) 16 meq PO DAILY@1700 [facility] Last Admin: 07/22/16 17:52 Dose: 16 meq Sodium Chloride (Saline Flush) 10 ml FLUSH ASDIRECTED PRN PRN Reason: Keep Vein Open Last Admin: 07/22/16 17:27 Dose: 10 ml Vilazodone HCl (Viibryd) 20 mg PO BEDTIME [facility] Last Admin: 07/22/16 20:32 Dose: 20 mg Labs: Laboratory Tests 07/22/16 07/22/16 07/22/16 Range/Units 07:55 07:55 07:55 WBC 10.4 (4.5-12.0) X10-3/uL RBC 3.08 L (3.23-5.20) x10(6)uL Hgb 9.4 L (11.5-15.5) g/dL Hct 28.2 L (30.0-51.3) % MCV 91.4 (80-96) fL MCH 30.4 (27.7-33.6) pg MCHC 33.2 (32.2-35.4) g/dL RDW 12.9 (11.5-15.5) % Plt Count 171 (125-369) X10(3)uL MPV 9.2 (7.4-10.4) fL Neut % (Auto) 83.1 H (46-82) % Lymph % (Auto) 5.3 L (13-37) % [place] % (Auto) 7.7 (4-12) % Eos % (Auto) 2 (1.0-5.0) % Baso % (Auto) 2 (0-2) % Neut # (Auto) 8.6 H (1.6-8.3) # Lymph # (Auto) 0.6 (0.6-5.0) # [place] # (Auto) 0.8 (0.0-1.3) # Eos # (Auto) 0.2 (0.0-0.8) # Baso # (Auto) 0.2 (0.0-0.2) # PT 51.9 H* (8.7-11.1) INR 4.97 H* (0.89-1.13) Sodium 134 L (135-145) mmol/L Potassium 4.1 (3.5-5.3) mmol/L Chloride 104 (100-110) mmol/L Carbon Dioxide 22 L (23-29) mmol/L BUN 19 (8-23) mg/dL Creatinine 1.1 (0.6-1.3) mg/dL Est Cr Clr Drug Dosing 39.46 mL/min Estimated GFR (MDRD) 48 L (>60) BUN/Creatinine Ratio 17.3 (9-20) Glucose 106 (80-116) mg/dL Calcium 8.1 L (8.6-10.2) mg/dL Blood Type 07/22/16 Range/Units 09:55 WBC (4.5-12.0) X10-3/uL RBC (3.23-5.20) x10(6)uL Hgb (11.5-15.5) g/dL Hct (30.0-51.3) % MCV (80-96) fL MCH (27.7-33.6) pg MCHC (32.2-35.4) g/dL RDW (11.5-15.5) % Plt Count (125-369) X10(3)uL MPV (7.4-10.4) fL Neut % (Auto) (46-82) % Lymph % (Auto) (13-37) % [place] % (Auto) (4-12) % Eos % (Auto) (1.0-5.0) % Baso % (Auto) (0-2) % Neut # (Auto) (1.6-8.3) # Lymph # (Auto) (0.6-5.0) # [place]er # (Auto) (0.0-1.3) # Eos # (Auto) (0.0-0.8) # Baso # (Auto) (0.0-0.2) # PT (8.7-11.1) INR (0.89-1.13) Sodium (135-145) mmol/L Potassium (3.5-5.3) mmol/L Chloride (100-110) mmol/L Carbon Dioxide (23-29) mmol/L BUN (8-23) mg/dL Creatinine (0.6-1.3) mg/dL Est Cr Clr Drug Dosing mL/min Estimated GFR (MDRD) (>60) BUN/Creatinine Ratio (9-20) Glucose (80-116) mg/dL Calcium (8.6-10.2) mg/dL Blood Type A POSITIVE Meds: Medications Generic Name Dose Route Start Last Admin Trade Name Freq PRN Reason Stop Dose Admin Acetaminophen 650 mg 07/22/16 12:41 Tylenol PO Q6H PRN Pain (mild 1-3) Bupropion HCl 300 mg 07/23/16 09:00 Wellbutrin Xl PO DAILY DEX Sodium Chloride 250 mls @ 100 mls/hr 07/22/16 09:00 07/22/16 09:18 Normal Saline IV 100 mls/hr ASDIRECTED DEX Administration Lactated Ringer's 1,000 mls @ 125 mls/hr 07/22/16 11:15 07/22/16 16:06 Ringers, Lactated IV 125 mls/hr ASDIRECTED DEX Administration Isosorbide Mononitrate 15 mg 07/22/16 21:00 07/22/16 20:23 Imdur PO 15 mg BID DEX Administration Latanoprost 0 ml 07/22/16 21:00 07/22/16 20:26 Xalatan 0.005% Ophth Soln EYEBOTH 1 drop BEDTIME DEX Administration Lisinopril 5 mg 07/23/16 09:00 Prinivil PO DAILY DEX Metoprolol Tartrate 50 mg 07/23/16 09:00 Lopressor PO DAILY DEX Olanzapine 2.5 mg 07/23/16 09:00 Zyprexa PO DAILY DEX Olanzapine 10 mg 07/22/16 21:00 07/22/16 20:32 Zyprexa PO 10 mg BEDTIME DEX Administration Potassium Chloride 16 meq 07/22/16 17:00 07/22/16 17:52 Klor-Con 8 PO 16 meq DAILY@1700 DEX Administration Sodium Chloride 10 ml 07/22/16 17:15 07/22/16 17:27 Saline Flush FLUSH 10 ml ASDIRECTED PRN Administration Keep Vein Open Vilazodone HCl 20 mg 07/22/16 21:00 07/22/16 20:32 Viibryd PO 20 mg BEDTIME DEX Administration Discontinued Medications Generic Name Dose Route Start Last Admin Trade Name Freq PRN Reason Stop Dose Admin Bupivacaine HCl 30 ml 07/22/16 11:44 07/22/16 11:44 Marcaine 0.5% .XX 07/22/16 11:45 30 ml .STK-MED ONE Administration Cefazolin Sodium/Dextrose 2 gm 50 mls @ 100 mls/hr 07/22/16 09:00 07/22/16 11 :12 / Premix IV 07/22/16 09:29 100 mls/hr ONETIME ONE Administration Departure - Departure Time of Disposition: 08:00 Disposition: Admitted As Inpatient 68 Condition: fair Clinical Impression: Wound dehiscence, surgical Qualifiers: Encounter type: subsequent encounter Qualified Code(s): T81.31XD - Disruption of external operation (surgical) wound, not elsewhere classified, subsequent encounter - My Orders Last 24 Hours: My Active Orders 07/22/16 08:55 Transfuse Fresh Frozen Plasma [COMM] Stat 07/22/16 09:00 Sodium Chloride 0.9% [Normal Saline] 250 ml IV ASDIRECTED 07/22/16 09:06 EKG 12 Lead [EK] Routine - Assessment/Plan Last 24 Hours: My Active Orders 07/22/16 08:55 Transfuse Fresh Frozen Plasma [COMM] Stat 07/22/16 09:00 Sodium Chloride 0.9% [Normal Saline] 250 ml IV ASDIRECTED 07/22/16 09:06 EKG 12 Lead [EK] Routine
[2016-07-22] MEDS ORDERED: ceFAZolin 2 GM in Premix Bag 1 BAG IV ONE (09:00)
--- NOTE | 2016-07-22 09:04 | PCM.HP ---
H&P History of Present Illness - General Date of Service: 07/22/16 Source of Information: Old records History Limitations: Reports: Altered mental status - History of Present Illness Initial Comments - Free Text/Narative: Pt with a hx of bx for a lesion on the right cheondoism. wound opened after sutures were removed. Sig amount of bleeding due to coumadin. Wound was closed in ED last week. see in clinic yesterday noted to have wound infection. started antibiotics. wound is worse today in ED. for debridement. - Related Data Allergies/Adverse Reactions: Allergies Allergy/AdvReac Type Severity Reaction Status Date / Time amiodarone Allergy Unknown Cannot Verified 05/04/16 15:59 Remember lidocaine Allergy Unknown Cannot Verified 05/04/16 15:59 Remember lincomycin HCl Allergy Unknown Cannot Verified 05/04/16 15:59 [From Lincocin] Remember minocycline HCl Allergy Unknown Cannot Verified 05/04/16 15:59 [From Minocin] Remember red (food color) Allergy Unknown Cannot Verified 05/04/16 15:59 Remember Skin Cleanser Combination Allergy Unknown Cannot Verified 05/04/16 15:59 No.4 Remember [From Minocin] Sulfa (Sulfonamide Allergy Unknown Cannot Verified 05/04/16 15:59 Antibiotics) Remember Home Medications: Home Meds Cholecalciferol (Vitamin D3) [Vitamin D3] 1,000 unit PO DAILY@1200 01/23/13 [ History] Isosorbide Mononitrate [Isosorbide Mononitrate ER] 15 mg PO BID 01/23/13 [ History] Latanoprost 1 drop EYEBOTH BEDTIME 01/23/13 [History] Lisinopril 5 mg PO DAILY 01/23/13 [History] Metoprolol Tartrate 50 mg PO DAILY 01/23/13 [History] Potassium Chloride [Klor-Con 8] 16 meq PO DAILY@1700 01/23/13 [History] Cyanocobalamin (Vitamin B-12) [B-12 Compliance] 1,000 mcg IM Q30D 05/04/16 [ History] OLANZapine [ZyPREXA] 2.5 mg PO DAILY 05/04/16 [History] OLANZapine [ZyPREXA] 10 mg PO BEDTIME 05/04/16 [History] Acetaminophen 650 mg PO Q4H PRN 07/17/16 [History] Polyethylene Glycol 3350 [MiraLAX] 17 gm PO DAILY 07/17/16 [History] Vilazodone [Viibryd] 20 mg PO BEDTIME 07/17/16 [History] Warfarin [Coumadin] 2.5 mg PO DAILY@1700 07/17/16 [History] buPROPion [Wellbutrin XL] 300 mg PO DAILY 07/17/16 [History] Ferrous Sulfate 325 mg PO DAILY #30 tablet 07/18/16 [Rx] Past Medical History HEENT History: Reports: Cataract Cardiovascular History: Reports: Afib, Heart valve replacement, Hypertension, Other (see below) 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 unsure. Musculoskeletal History: Reports: Other (see below) Other Musculoskeletal History: right knee pain. Hydrocortison shots on right knee Neurological History: Reports: Other (see below) Other Neuro History: dementia Psychiatric History: Reports: Dementia, Depression Other Hematologic History: takes vitamin b-12 Dermatologic History: Reports: Melanoma Other Dermatologic History: mole taken off on head. - Infectious Disease History Infectious Disease History: Reports: Chicken pox, Measles - Past Surgical History HEENT Surgical History: Reports: Cataract surgery Cardiovascular Surgical History: Reports: Valve replacement Neurological Surgical History: Reports: None Musculoskeletal Surgical History: Reports: None Dermatological Surgical History: Reports: Skin biopsy Social & Family History - Family History Family Medical History: Noncontributory - Tobacco Use Smoking Status *Q: Never Smoker Second Hand Smoke Exposure: No - Caffeine Use Caffeine Use: Reports: None - Alcohol Use Days Per Week of Alcohol Use: 0 - Recreational Drug Use Recreational Drug Use: No H&P Review of Systems - Review of Systems: Review Of Systems: Unable To Obtain Exam - Exam Exam: See Below - Vital Signs Vital Signs: Last Vital Signs Temp 37.2 C 07/22/16 07:00 Pulse 105 H 07/22/16 07:00 Resp 18 07/22/16 07:00 BP 132/79 07/22/16 07:00 Pulse Ox 97 07/22/16 07:00 Weight: 97.522 kg - Exam General: sedated Lungs: Clear to auscultation, Normal respiratory effort Cardiovascular: regular rate, regular rhythm Abdomen: normal bowel sounds, soft Skin: wound (right cheondoism with continued break down of skin and bleeding. ) - Patient Data Lab Results last 24 hrs: Laboratory Results - last 24 hr 07/22/16 07/22/16 07/22/16 Range/Units 07:55 07:55 07:55 WBC 10.4 (4.5-12.0) X10-3/uL RBC 3.08 L (3.23-5.20) x10(6)uL Hgb 9.4 L (11.5-15.5) g/dL Hct 28.2 L (30.0-51.3) % MCV 91.4 (80-96) fL MCH 30.4 (27.7-33.6) pg MCHC 33.2 (32.2-35.4) g/dL RDW 12.9 (11.5-15.5) % Plt Count 171 (125-369) X10(3)uL MPV 9.2 (7.4-10.4) fL Neut % (Auto) 83.1 H (46-82) % Lymph % (Auto) 5.3 L (13-37) % [place] % (Auto) 7.7 (4-12) % Eos % (Auto) 2 (1.0-5.0) % Baso % (Auto) 2 (0-2) % Neut # (Auto) 8.6 H (1.6-8.3) # Lymph # (Auto) 0.6 (0.6-5.0) # [place] # (Auto) 0.8 (0.0-1.3) # Eos # (Auto) 0.2 (0.0-0.8) # Baso # (Auto) 0.2 (0.0-0.2) # PT 51.9 H* (8.7-11.1) INR 4.97 H* (0.89-1.13) Sodium 134 L (135-145) mmol/L Potassium 4.1 (3.5-5.3) mmol/L Chloride 104 (100-110) mmol/L Carbon Dioxide 22 L (23-29) mmol/L BUN 19 (8-23) mg/dL Creatinine 1.1 (0.6-1.3) mg/dL Est Cr Clr Drug Dosing 39.46 mL/min Estimated GFR (MDRD) 48 L (>60) BUN/Creatinine Ratio 17.3 (9-20) Glucose 106 (80-116) mg/dL Calcium 8.1 L (8.6-10.2) mg/dL Result Diagrams: 07/22/16 07:55 07/22/16 07:55 *Q Meaningful Use (ADM) - VTE *Q VTE Criteria *Q: - Stroke *Q Stroke Criteria *Q: - AMI *Q AMI Criteria *Q: Problem List Initiated/Reviewed/Updated: Yes Orders Last 24hrs: Active Orders 24 hr Category Date Time Status Verify Patient Consent Obtain [RC] ASDIRECTED Care 07/22/16 08:58 Ordered Nothing Per Oral Diet [DIET] Diet 07/22/16 Breakfast Ordered FRESH FROZEN PLASMA [BBK] Routine Lab 07/22/16 08:54 Ordered Sodium Chloride 0.9% [Normal Saline] 250 ml Med 07/22/16 09:00 Active IV ASDIRECTED ceFAZolin [Ancef] 2 gm Med 07/22/16 08:58 Ordered Sodium Chloride 0.9% [Normal Saline] 100 ml IV ONETIME Transfuse Fresh Frozen Plasma [COMM] Stat Oth 07/22/16 08:55 Ordered Resuscitation Status Routine Resus Stat 07/22/16 08:58 Ordered Medication Orders Sodium Chloride (Normal Saline) 250 mls @ 100 mls/hr IV ASDIRECTED DEX Assessment/Plan Comment:: wound infection for debridement. procedure and risks explained to the pt to include bleeding,poor cosmetic result, continued infection.
[2016-07-22] MEDS: Sodium Chloride 0.9% 250 ML IV SCH (09:18)
[2016-07-22] MEDS: Lactated Ringers 1,000 ML IV SCH ×2 (11:10→16:06)
[2016-07-22] MEDS ORDERED: Propofol 200 MG/20 ML SDV IV ONE (11:15)
[2016-07-22] MEDS ORDERED: fentaNYL 100 MCG/2 ML SDV IV ONE (11:15)
[2016-07-22] MEDS ORDERED: Lidocaine 2% 100 MG/5 ML Syringe IVPUSH ONE (11:15)
[2016-07-22] MEDS ORDERED: Bupivacaine 0.5% 30 ML SDV ONE (11:44)
--- NOTE | 2016-07-22 12:18 | PCM.OPNOTE ---
- General Post-Op/Procedure Note Date of Surgery/Procedure: 07/22/16 Operative Procedure(s): wound debridement Findings: clot and necrotic wound edge Pre Op Diagnosis: wound infection Post-Op Diagnosis: Same Anesthesia Technique: MAC Primary Surgeon: Saij Moise Anesthesia Provider: Mary Vinson Pathology: clot and wound edges Complications: None Condition: Good Free Text/Narrative:: Intake & Output 07/21/16 07/22/16 07/22/16 22:59 06:59 14:59 Intake Total 234 Balance 234 see dictation
[2016-07-22] MEDS ORDERED: Acetaminophen 325 MG Tab PO PRN (12:41)
[2016-07-22] MEDS: Sodium Chloride 0.9% 10 ML Syringe FLUSH PRN (17:27)
[2016-07-22] MEDS: Potassium Chloride 8 MEQ Tab.ER PO SCH (17:52)
--- NOTE | 2016-07-22 20:00 | OR ---
DATE OF OPERATION: 07/22/2016 SURGEON: Saji Moise MD PROCEDURE PERFORMED: Evacuation of clot, wound debridement, infected biopsy site, right latter-day. PREOPERATIVE DIAGNOSIS: Infection, right latter-day. POSTOPERATIVE DIAGNOSIS: Infection, right latter-day. INDICATIONS FOR PROCEDURE: This is a 80-year-old white female who has undergone a biopsy for skin lesion on her right latter-day several weeks ago. The sutures were removed early. The patient had a subsequent wound breakdown and bleeding, which was treated in the emergency department. She was seen by me yesterday in the clinic and noted to have evidence of wound infection and several sutures were removed. She was placed on p.o. antibiotics, but she presented to the emergency department this morning with "worsening appearance of the wound and further suppuration." She and her were offered and accepted debridement and definitive treatment. NARRATIVE: After an excellent IV sedation was administered, 5 mL of 0.5% bupivacaine was used to infiltrate the wound edges. The clot was removed in the wound bed and sharp debridement was used to take down the necrotic and infected tissue. Bleeding was controlled with a combination of electrocautery as well as Surgicel, which was packed into the wound. An ABD was placed over top of this and then 2 x 2s were placed over top of that. Measuring the wound, approximately 3 cm in diameter with a slightly ovoid shape. Trudy were placed circumferentially around the wound bed itself, and then vessel loops were placed underneath all the trudy, and then they were tied to each other to keep the adherent to the wound bed itself. The patient tolerated the procedure well and was taken to recovery room in good condition. /[id number] DENISA/FAITH
[2016-07-22] MEDS: Isosorbide Mononitrate 30 MG Tab.ER PO SCH (20:23)
[2016-07-22] MEDS: Latanoprost 0.005% Ophth Soln 2.5 ML Bottle EYEBOTH SCH (20:26)
[2016-07-22] MEDS: OLANZapine 10 MG Tab PO SCH (20:32)
[2016-07-23] MEDS: Lactated Ringers 1,000 ML IV SCH ×2 (00:18→08:20)
[2016-07-23] MEDS: Isosorbide Mononitrate 30 MG Tab.ER PO SCH ×2 (08:23→20:57)
[2016-07-23] MEDS: Metoprolol Tartrate 50 MG Tab PO SCH (08:25)
[2016-07-23] MEDS: Lisinopril 5 MG Tab PO SCH (08:26)
[2016-07-23] MEDS: buPROPion 150 MG Tab.ER PO SCH (08:27)
[2016-07-23] MEDS: OLANZapine 2.5 MG Tab PO SCH (08:28)
[2016-07-23] MEDS ORDERED: Sodium Chloride 0.9% 1,000 ML IV SCH (09:30)
[2016-07-23] MEDS ORDERED: Sodium Chloride 0.9% 250 ML IV SCH (09:30)
--- NOTE | 2016-07-23 09:31 | PCM.SURGPN ---
- General Info Date of Service: 07/23/16 POD#: 1 Functional Status: Reports: pain controlled, tolerating diet, ambulating. Denies: new symptoms - Review of Systems Cardiovascular: Reports: No Symptoms Gastrointestinal: Reports: No symptoms - Patient Data Vitals - most recent: Last Vital Signs Temp 36.8 C 07/23/16 04:40 Pulse 130 H 07/23/16 08:25 Resp 16 07/23/16 04:40 BP 123/73 07/23/16 08:26 Pulse Ox 94 L 07/23/16 04:40 Weight - most recent: 97.522 kg I&O - last 24 hours: Intake & Output 07/22/16 07/23/16 07/23/16 22:59 06:59 14:59 Intake Total 1147 886 Output Total 0 Balance 1147 886 Lab Results last 24 hrs: Laboratory Results - last 24 hr 07/22/16 07/23/16 07/23/16 Range/Units 17:10 06:15 06:15 WBC 6.5 (4.5-12.0) X10-3/uL RBC 2.69 L (3.23-5.20) x10(6)uL Hgb 8.4 L (11.5-15.5) g/dL Hct 24.7 L (30.0-51.3) % MCV 91.8 (80-96) fL MCH 31.1 (27.7-33.6) pg MCHC 33.8 (32.2-35.4) g/dL RDW 13.3 (11.5-15.5) % Plt Count 187 (125-369) X10(3)uL MPV 8.7 (7.4-10.4) fL Add Manual Diff Yes Neutrophils % (Manual) 79 (46-82) % Lymphocytes % (Manual) 11 L (13-37) % Monocytes % (Manual) 6 (4-12) % Eosinophils % (Manual) 3 (0-5) % Basophils % (Manual) 1 (0-2) % PT 19.4 H 18.1 H (8.7-11.1) INR 1.90 H 1.77 H (0.89-1.13) Med Orders - Current: Current Medications Acetaminophen (Tylenol) 650 mg PO Q6H PRN PRN Reason: Pain (mild 1-3) Bupropion HCl (Wellbutrin Xl) 300 mg PO DAILY [facility] Last Admin: 07/23/16 08:27 Dose: 300 mg Sodium Chloride (Normal Saline) 250 mls @ 100 mls/hr IV ASDIRECTED [facility] Last Admin: 07/22/16 09:18 Dose: 100 mls/hr Sodium Chloride (Normal Saline) 1,000 mls @ 75 mls/hr IV ASDIRECTED [facility] Isosorbide Mononitrate (Imdur) 15 mg PO BID [facility] Last Admin: 07/23/16 08:23 Dose: 15 mg Latanoprost (Xalatan 0.005% Ophth Soln) 0 ml EYEBOTH BEDTIME [facility] Last Admin: 07/22/16 20:26 Dose: 1 drop Lisinopril (Prinivil) 5 mg PO DAILY [facility] Last Admin: 07/23/16 08:26 Dose: 5 mg Metoprolol Tartrate (Lopressor) 50 mg PO DAILY [facility] Last Admin: 07/23/16 08:25 Dose: 50 mg Olanzapine (Zyprexa) 2.5 mg PO DAILY [facility] Last Admin: 07/23/16 08:28 Dose: 2.5 mg Olanzapine (Zyprexa) 10 mg PO BEDTIME [facility] Last Admin: 07/22/16 20:32 Dose: 10 mg Potassium Chloride (Klor-Con 8) 16 meq PO DAILY@1700 [facility] Last Admin: 07/22/16 17:52 Dose: 16 meq Sodium Chloride (Saline Flush) 10 ml FLUSH ASDIRECTED PRN PRN Reason: Keep Vein Open Last Admin: 07/22/16 17:27 Dose: 10 ml Vilazodone HCl (Viibryd) 20 mg PO BEDTIME [facility] Last Admin: 07/22/16 20:32 Dose: 20 mg Discontinued Medications Bupivacaine HCl (Marcaine 0.5%) 30 ml .XX .STK-MED ONE Stop: 07/22/16 11:45 Last Admin: 07/22/16 11:44 Dose: 30 ml Cefazolin Sodium/Dextrose 2 gm (/ Premix) 50 mls @ 100 mls/hr IV ONETIME ONE Stop: 07/22/16 09:29 Last Admin: 07/22/16 11:12 Dose: 100 mls/hr Lactated Ringer's (Ringers, Lactated) 1,000 mls @ 125 mls/hr IV ASDIRECTED DEX Last Admin: 07/23/16 08:20 Dose: 125 mls/hr - Exam Wound/Incisions: dressing dry and intact General: alert Lungs: Clear to auscultation, Normal respiratory effort Cardiovascular: Tachycardia - Problem List & Annotations (1) Wound infection after surgery SNOMED Code(s): 10801097, 407165156 Code(s): T81.4XXA - INFECTION FOLLOWING A PROCEDURE, INITIAL ENCOUNTER Status: Acute Current Visit: Yes Qualifiers: Encounter type: sequela Qualified Code(s): T81.4XXS - Infection following a procedure, sequela - Problem List Review Problem List Initiated/Reviewed/Updated: Yes - My Orders Last 24 Hours: Active Orders 24 hr Category Date Time Status Notify Provider Vital Signs [RC] PRN Care 07/22/16 12:41 Active Oxygen Therapy [RC] PRN Care 07/22/16 12:41 Active RT Incentive Spirometry [RC] Q2HWA Care 07/22/16 12:41 Active Up With Assistance [RC] ASDIRECTED Care 07/22/16 12:41 Active Vital Signs [RC] 08,16,22 Care 07/22/16 12:41 Active Regular Diet [DIET] Diet 07/22/16 Dinner Active RED BLOOD CELLS LP [BBK] Routine Lab 07/23/16 09:28 Ordered TYPE AND SCREEN [BBK] Routine Lab 07/23/16 06:15 Received Acetaminophen [Tylenol] Med 07/22/16 12:41 Active 650 mg PO Q6H PRN Isosorbide Mononitrate [Imdur] Med 07/22/16 21:00 Active 15 mg PO BID Latanoprost [Xalatan 0.005% Ophth Soln] Med 07/22/16 21:00 Active 0 ml EYEBOTH BEDTIME Lisinopril [Prinivil] Med 07/23/16 09:00 Active 5 mg PO DAILY Metoprolol Tartrate [Lopressor] Med 07/23/16 09:00 Active 50 mg PO DAILY OLANZapine [ZyPREXA] Med 07/22/16 21:00 Active 10 mg PO BEDTIME OLANZapine [ZyPREXA] Med 07/23/16 09:00 Active 2.5 mg PO DAILY Potassium Chloride [Klor-Con 8] Med 07/22/16 17:00 Active 16 meq PO DAILY@1700 Sodium Chloride 0.9% @ 75 MLS/HR(1000ml) Med 07/23/16 09:30 Ordered Sodium Chloride 0.9% [Normal Saline] 1,000 ml IV ASDIRECTED Sodium Chloride 0.9% [Normal Saline] 250 ml Med 07/23/16 09:30 Ordered IV ASDIRECTED Sodium Chloride 0.9% [Saline Flush] Med 07/22/16 17:15 Active 10 ml FLUSH ASDIRECTED PRN Vilazodone [Viibryd] Med 07/22/16 21:00 Active 20 mg PO BEDTIME buPROPion [Wellbutrin XL] Med 07/23/16 09:00 Active 300 mg PO DAILY Transfuse PRBC [Transfuse Red Blood Cells] [COMM] Oth 07/23/16 09:28 Ordered Routine Medication Orders Acetaminophen (Tylenol) 650 mg PO Q6H PRN PRN Reason: Pain (mild 1-3) Bupropion HCl (Wellbutrin Xl) 300 mg PO DAILY [facility] Last Admin: 07/23/16 08:27 Dose: 300 mg Sodium Chloride (Normal Saline) 250 mls @ 100 mls/hr IV ASDIRECTED [facility] Last Admin: 07/22/16 09:18 Dose: 100 mls/hr Sodium Chloride (Normal Saline) 1,000 mls @ 75 mls/hr IV ASDIRECTED [facility] Isosorbide Mononitrate (Imdur) 15 mg PO BID [facility] Last Admin: 07/23/16 08:23 Dose: 15 mg Admin: 07/22/16 20:23 Dose: 15 mg Latanoprost (Xalatan 0.005% Ophth Soln) 0 ml EYEBOTH BEDTIME [facility] Last Admin: 07/22/16 20:26 Dose: 1 drop Lisinopril (Prinivil) 5 mg PO DAILY [facility] Last Admin: 07/23/16 08:26 Dose: 5 mg Metoprolol Tartrate (Lopressor) 50 mg PO DAILY [facility] Last Admin: 07/23/16 08:25 Dose: 50 mg Olanzapine (Zyprexa) 2.5 mg PO DAILY [facility] Last Admin: 07/23/16 08:28 Dose: 2.5 mg Olanzapine (Zyprexa) 10 mg PO BEDTIME [facility] Last Admin: 07/22/16 20:32 Dose: 10 mg Potassium Chloride (Klor-Con 8) 16 meq PO DAILY@1700 [facility] Last Admin: 07/22/16 17:52 Dose: 16 meq Sodium Chloride (Saline Flush) 10 ml FLUSH ASDIRECTED PRN PRN Reason: Keep Vein Open Last Admin: 07/22/16 17:27 Dose: 10 ml Vilazodone HCl (Viibryd) 20 mg PO BEDTIME [facility] Last Admin: 07/22/16 20:32 Dose: 20 mg - Assessment Assessment (Free Text/Narrative):: wound infection breakdown is improved. eye edema is better. anemic and appears sx - Plan Plan (Free Text/Narrative):: dressing change performed. will transfuse 1 unit of prbc.
[2016-07-23] MEDS: Sodium Chloride 0.9% 250 ML IV SCH (11:09)
[2016-07-23] MEDS: Sodium Chloride 0.9% 10 ML Syringe FLUSH PRN (14:03)
[2016-07-23] MEDS: Potassium Chloride 8 MEQ Tab.ER PO SCH (16:10)
[2016-07-23] MEDS: Latanoprost 0.005% Ophth Soln 2.5 ML Bottle EYEBOTH SCH (20:56)
[2016-07-23] MEDS: OLANZapine 10 MG Tab PO SCH (21:08)
[2016-07-24] MEDS: Lisinopril 5 MG Tab PO SCH (09:26)
[2016-07-24] MEDS: Metoprolol Tartrate 50 MG Tab PO SCH (09:26)
[2016-07-24] MEDS: Isosorbide Mononitrate 30 MG Tab.ER PO SCH ×2 (09:26→20:23)
[2016-07-24] MEDS: OLANZapine 2.5 MG Tab PO SCH (09:27)
[2016-07-24] MEDS: buPROPion 150 MG Tab.ER PO SCH (09:27)
--- NOTE | 2016-07-24 09:45 | PCM.SURGPN ---
- General Info Date of Service: 07/24/16 - Review of Systems Pulmonary: Reports: no symptoms Cardiovascular: Reports: No Symptoms - Patient Data Vitals - most recent: Last Vital Signs Temp 36.5 C 07/23/16 22:00 Pulse 100 07/24/16 09:26 Resp 18 07/23/16 22:00 BP 127/80 07/24/16 09:26 Pulse Ox 94 L 07/23/16 22:00 Weight - most recent: 97.522 kg I&O - last 24 hours: Intake & Output 07/23/16 07/24/16 07/24/16 22:59 06:59 14:59 Intake Total 404 240 Balance 404 240 Lab Results last 24 hrs: Laboratory Results - last 24 hr 07/23/16 07/24/16 07/24/16 Range/Units 06:15 06:25 06:25 WBC 5.8 (4.5-12.0) X10-3/uL RBC 2.74 L (3.23-5.20) x10(6)uL Hgb 8.6 L (11.5-15.5) g/dL Hct 25.2 L (30.0-51.3) % MCV 92.0 (80-96) fL MCH 31.4 (27.7-33.6) pg MCHC 34.1 (32.2-35.4) g/dL RDW 13.3 (11.5-15.5) % Plt Count 196 (125-369) X10(3)uL MPV 8.7 (7.4-10.4) fL Neut % (Auto) 68.0 (46-82) % Lymph % (Auto) 14.2 (13-37) % [place] % (Auto) 10.9 (4-12) % Eos % (Auto) 6 H (1.0-5.0) % Baso % (Auto) 1 (0-2) % Neut # (Auto) 4.0 (1.6-8.3) # Lymph # (Auto) 0.8 (0.6-5.0) # [place] # (Auto) 0.6 (0.0-1.3) # Eos # (Auto) 0.4 (0.0-0.8) # Baso # (Auto) 0.0 (0.0-0.2) # PT 14.9 H (8.7-11.1) INR 1.47 H (0.89-1.13) Blood Type A POSITIVE Gel Antibody Screen Negative Crossmatch See Detail Med Orders - Current: Current Medications Acetaminophen (Tylenol) 650 mg PO Q6H PRN PRN Reason: Pain (mild 1-3) Bupropion HCl (Wellbutrin Xl) 300 mg PO DAILY [facility] Last Admin: 07/24/16 09:27 Dose: 300 mg Sodium Chloride (Normal Saline) 250 mls @ 100 mls/hr IV ASDIRECTED DEX Last Admin: 07/23/16 11:09 Dose: 100 mls/hr Sodium Chloride (Normal Saline) 1,000 mls @ 0 mls/hr IV ASDIRECTED DEX PRN Reason: KVO Last Admin: 07/23/16 13:57 Dose: 75 mls/hr Sodium Chloride (Normal Saline) 250 mls @ 100 mls/hr IV ASDIRECTED DEX Isosorbide Mononitrate (Imdur) 15 mg PO BID [facility] Last Admin: 07/24/16 09:26 Dose: 15 mg Latanoprost (Xalatan 0.005% Ophth Soln) 0 ml EYEBOTH BEDTIME [facility] Last Admin: 07/23/16 20:56 Dose: 1 drop Lisinopril (Prinivil) 5 mg PO DAILY [facility] Last Admin: 07/24/16 09:26 Dose: 5 mg Metoprolol Tartrate (Lopressor) 50 mg PO DAILY [facility] Last Admin: 07/24/16 09:26 Dose: 50 mg Olanzapine (Zyprexa) 2.5 mg PO DAILY [facility] Last Admin: 07/24/16 09:27 Dose: 2.5 mg Olanzapine (Zyprexa) 10 mg PO BEDTIME [facility] Last Admin: 07/23/16 21:08 Dose: 10 mg Potassium Chloride (Klor-Con 8) 16 meq PO DAILY@1700 [facility] Last Admin: 07/23/16 16:10 Dose: 16 meq Sodium Chloride (Saline Flush) 10 ml FLUSH ASDIRECTED PRN PRN Reason: Keep Vein Open Last Admin: 07/23/16 14:03 Dose: 10 ml Vilazodone HCl (Viibryd) 20 mg PO BEDTIME [facility] Last Admin: 07/23/16 20:56 Dose: 20 mg Discontinued Medications Bupivacaine HCl (Marcaine 0.5%) 30 ml .XX .STK-MED ONE Stop: 07/22/16 11:45 Last Admin: 07/22/16 11:44 Dose: 30 ml Cefazolin Sodium/Dextrose 2 gm (/ Premix) 50 mls @ 100 mls/hr IV ONETIME ONE Stop: 07/22/16 09:29 Last Admin: 07/22/16 11:12 Dose: 100 mls/hr Lactated Ringer's (Ringers, Lactated) 1,000 mls @ 125 mls/hr IV ASDIRECTED DEX Last Admin: 07/23/16 08:20 Dose: 125 mls/hr - Exam Wound/Incisions: dressing dry and intact Lungs: Clear to auscultation, Normal respiratory effort Cardiovascular: Regular Rate, Regular Rhythm - Problem List & Annotations (1) Wound infection after surgery SNOMED Code(s): 19988567, [id number] Code(s): T81.4XXA - INFECTION FOLLOWING A PROCEDURE, INITIAL ENCOUNTER Status: Acute Current Visit: Yes Qualifiers: Encounter type: sequela Qualified Code(s): T81.4XXS - Infection following a procedure, sequela - Problem List Review Problem List Initiated/Reviewed/Updated: Yes - My Orders Last 24 Hours: Active Orders 24 hr Category Date Time Status Daily Weight [Height and Weight] [RC] ONETIME Care 07/24/16 07:00 Active INR,PT,PROTHROMBIN TIME [COAG] AM Lab 07/25/16 05:11 Ordered Lisinopril [Prinivil] Med 07/23/16 09:00 Active 5 mg PO DAILY Metoprolol Tartrate [Lopressor] Med 07/23/16 09:00 Active 50 mg PO DAILY OLANZapine [ZyPREXA] Med 07/23/16 09:00 Active 2.5 mg PO DAILY Sodium Chloride 0.9% [Normal Saline] 1,000 ml Med 07/23/16 09:30 Active IV ASDIRECTED Sodium Chloride 0.9% [Normal Saline] 250 ml Med 07/23/16 09:30 Active IV ASDIRECTED buPROPion [Wellbutrin XL] Med 07/23/16 09:00 Active 300 mg PO DAILY Transfuse PRBC [Transfuse Red Blood Cells] [COMM] Oth 07/23/16 09:28 Ordered Routine Medication Orders Acetaminophen (Tylenol) 650 mg PO Q6H PRN PRN Reason: Pain (mild 1-3) Bupropion HCl (Wellbutrin Xl) 300 mg PO DAILY [facility] Last Admin: 07/24/16 09:27 Dose: 300 mg Admin: 07/23/16 08:27 Dose: 300 mg Sodium Chloride (Normal Saline) 250 mls @ 100 mls/hr IV ASDIRECTED [facility] Last Admin: 07/23/16 11:09 Dose: 100 mls/hr Admin: 07/22/16 09:18 Dose: 100 mls/hr Sodium Chloride (Normal Saline) 1,000 mls @ 0 mls/hr IV ASDIRECTED [facility] PRN Reason: KVO Last Admin: 07/23/16 13:57 Dose: 75 mls/hr Sodium Chloride (Normal Saline) 250 mls @ 100 mls/hr IV ASDIRECTED [facility] Isosorbide Mononitrate (Imdur) 15 mg PO BID [facility] Last Admin: 07/24/16 09:26 Dose: 15 mg Admin: 07/23/16 20:57 Dose: 15 mg Admin: 07/23/16 08:23 Dose: 15 mg Admin: 07/22/16 20:23 Dose: 15 mg Latanoprost (Xalatan 0.005% Ophth Soln) 0 ml EYEBOTH BEDTIME [facility] Last Admin: 07/23/16 20:56 Dose: 1 drop Admin: 07/22/16 20:26 Dose: 1 drop Lisinopril (Prinivil) 5 mg PO DAILY [facility] Last Admin: 07/24/16 09:26 Dose: 5 mg Admin: 07/23/16 08:26 Dose: 5 mg Metoprolol Tartrate (Lopressor) 50 mg PO DAILY [facility] Last Admin: 07/24/16 09:26 Dose: 50 mg Admin: 07/23/16 08:25 Dose: 50 mg Olanzapine (Zyprexa) 2.5 mg PO DAILY [facility] Last Admin: 07/24/16 09:27 Dose: 2.5 mg Admin: 07/23/16 08:28 Dose: 2.5 mg Olanzapine (Zyprexa) 10 mg PO BEDTIME [facility] Last Admin: 07/23/16 21:08 Dose: 10 mg Admin: 07/22/16 20:32 Dose: 10 mg Potassium Chloride (Klor-Con 8) 16 meq PO DAILY@1700 [facility] Last Admin: 07/23/16 16:10 Dose: 16 meq Admin: 07/22/16 17:52 Dose: 16 meq Sodium Chloride (Saline Flush) 10 ml FLUSH ASDIRECTED PRN PRN Reason: Keep Vein Open Last Admin: 07/23/16 14:03 Dose: 10 ml Admin: 07/22/16 17:27 Dose: 10 ml Vilazodone HCl (Viibryd) 20 mg PO BEDTIME [facility] Last Admin: 07/23/16 20:56 Dose: 20 mg Admin: 07/22/16 20:32 Dose: 20 mg - Assessment Assessment (Free Text/Narrative):: swelling around the eye is better. erythema is better. - Plan Plan (Free Text/Narrative):: dressing change later today.
--- NOTE | 2016-07-24 17:41 | PCM.SN ---
- Free Text/Narrative Note: dressing change performed packing was removed. packed with Aqua Cell Ag coverlet applied.
[2016-07-24] MEDS: Potassium Chloride 8 MEQ Tab.ER PO SCH (18:07)
[2016-07-24] MEDS: Vilazodone 20 MG Tab PO SCH (20:23)
[2016-07-24] MEDS: Latanoprost 0.005% Ophth Soln 2.5 ML Bottle EYEBOTH SCH (20:24)
[2016-07-24] MEDS: OLANZapine 10 MG Tab PO SCH (20:25)
[2016-07-25] MEDS: Lisinopril 5 MG Tab PO SCH (08:06)
[2016-07-25] MEDS: Isosorbide Mononitrate 30 MG Tab.ER PO SCH ×2 (08:06→20:05)
[2016-07-25] MEDS: Metoprolol Tartrate 50 MG Tab PO SCH (08:07)
[2016-07-25] MEDS: buPROPion 150 MG Tab.ER PO SCH (08:11)
[2016-07-25] MEDS: OLANZapine 2.5 MG Tab PO SCH (08:11)
--- NOTE | 2016-07-25 14:38 | PCM.SURGPN ---
- General Info Date of Service: 07/25/16 Functional Status: Reports: pain controlled, tolerating diet, ambulating, urinating. Denies: new symptoms - Review of Systems Pulmonary: Reports: no symptoms Cardiovascular: Reports: No Symptoms Skin: Reports: no symptoms - Patient Data Vitals - most recent: Last Vital Signs Temp 36.9 C 07/25/16 08:16 Pulse 123 H 07/25/16 08:16 Resp 22 H 07/25/16 08:16 BP 145/96 H 07/25/16 08:16 Pulse Ox 95 07/25/16 08:16 Weight - most recent: 98.486 kg I&O - last 24 hours: Intake & Output 07/24/16 07/25/16 07/25/16 22:59 06:59 14:59 Intake Total 600 0 100 Output Total 400 700 Balance 200 0 -600 Lab Results last 24 hrs: Laboratory Results - last 24 hr 07/25/16 Range/Units 06:35 PT 13.1 H (8.7-11.1) INR 1.29 H (0.89-1.13) Med Orders - Current: Current Medications Acetaminophen (Tylenol) 650 mg PO Q6H PRN PRN Reason: Pain (mild 1-3) Bupropion HCl (Wellbutrin Xl) 300 mg PO DAILY [facility] Last Admin: 07/25/16 08:11 Dose: 300 mg Ferrous Sulfate (Ferrous Sulfate) 325 mg PO DAILY [facility] Heparin Sodium (Porcine) (Heparin Lock Flush 100 Units/Ml Syringe) 500 units FLUSH ASDIRECTED PRN PRN Reason: Keep Vein Open Last Admin: 07/24/16 18:39 Dose: 500 units Isosorbide Mononitrate (Imdur) 15 mg PO BID [facility] Last Admin: 07/25/16 08:06 Dose: 15 mg Latanoprost (Xalatan 0.005% Ophth Soln) 0 ml EYEBOTH BEDTIME [facility] Last Admin: 07/24/16 20:24 Dose: 1 drop Lisinopril (Prinivil) 5 mg PO DAILY [facility] Last Admin: 07/25/16 08:06 Dose: 5 mg Metoprolol Tartrate (Lopressor) 50 mg PO DAILY [facility] Last Admin: 07/25/16 08:07 Dose: 50 mg Olanzapine (Zyprexa) 2.5 mg PO DAILY [facility] Last Admin: 07/25/16 08:11 Dose: 2.5 mg Olanzapine (Zyprexa) 10 mg PO BEDTIME [facility] Last Admin: 07/24/16 20:25 Dose: 10 mg Potassium Chloride (Klor-Con 8) 16 meq PO DAILY@1700 [facility] Last Admin: 07/24/16 18:07 Dose: 16 meq Sodium Chloride (Saline Flush) 10 ml FLUSH ASDIRECTED PRN PRN Reason: Keep Vein Open Last Admin: 07/23/16 14:03 Dose: 10 ml Warfarin Sodium (Coumadin) 2.5 mg PO DAILY@1700 [facility] Discontinued Medications Bupivacaine HCl (Marcaine 0.5%) 30 ml .XX .STK-MED ONE Stop: 07/22/16 11:45 Last Admin: 07/22/16 11:44 Dose: 30 ml Sodium Chloride (Normal Saline) 250 mls @ 100 mls/hr IV ASDIRECTED [facility] Last Admin: 07/23/16 11:09 Dose: 100 mls/hr Cefazolin Sodium/Dextrose 2 gm (/ Premix) 50 mls @ 100 mls/hr IV ONETIME ONE Stop: 07/22/16 09:29 Last Admin: 07/22/16 11:12 Dose: 100 mls/hr Lactated Ringer's (Ringers, Lactated) 1,000 mls @ 125 mls/hr IV ASDIRECTED [facility] Last Admin: 07/23/16 08:20 Dose: 125 mls/hr Sodium Chloride (Normal Saline) 1,000 mls @ 0 mls/hr IV ASDIRECTED [facility] PRN Reason: KVO Last Admin: 07/23/16 13:57 Dose: 75 mls/hr Sodium Chloride (Normal Saline) 250 mls @ 100 mls/hr IV ASDIRECTED [facility] Vilazodone HCl (Viibryd) 20 mg PO BEDTIME [facility] Last Admin: 07/23/16 20:56 Dose: 20 mg - Exam Wound/Incisions: dressing dry and intact Lungs: Clear to auscultation, Normal respiratory effort Cardiovascular: Regular Rate, Regular Rhythm - Problem List & Annotations (1) Wound infection after surgery SNOMED Code(s): 20792252, 159412463 Code(s): T81.4XXA - INFECTION FOLLOWING A PROCEDURE, INITIAL ENCOUNTER Status: Acute Current Visit: Yes Qualifiers: Encounter type: subsequent encounter Qualified Code(s): T81.4XXD - Infection following a procedure, subsequent encounter - Problem List Review Problem List Initiated/Reviewed/Updated: Yes - My Orders Last 24 Hours: Active Orders 24 hr Category Date Time Status CBC WITH AUTO DIFF [HEME] AM Lab 07/26/16 05:11 Ordered INR,PT,PROTHROMBIN TIME [COAG] AM Lab 07/26/16 05:11 Ordered Ferrous Sulfate Med 07/26/16 09:00 Ordered 325 mg PO DAILY Heparin Sodium [Heparin Lock Flush 100 Units/ML Syringe Med 07/24/16 17:49 Active ] 500 units FLUSH ASDIRECTED PRN Vilazodone [Viibryd] Med 07/24/16 21:00 Active 20 mg PO BEDTIME Warfarin [Coumadin] Med 07/25/16 17:00 Ordered 2.5 mg PO DAILY@1700 Medication Orders Acetaminophen (Tylenol) 650 mg PO Q6H PRN PRN Reason: Pain (mild 1-3) Bupropion HCl (Wellbutrin Xl) 300 mg PO DAILY [facility] Last Admin: 07/25/16 08:11 Dose: 300 mg Admin: 07/24/16 09:27 Dose: 300 mg Admin: 07/23/16 08:27 Dose: 300 mg Ferrous Sulfate (Ferrous Sulfate) 325 mg PO DAILY [facility] Heparin Sodium (Porcine) (Heparin Lock Flush 100 Units/Ml Syringe) 500 units FLUSH ASDIRECTED PRN PRN Reason: Keep Vein Open Last Admin: 07/24/16 18:39 Dose: 500 units Isosorbide Mononitrate (Imdur) 15 mg PO BID [facility] Last Admin: 07/25/16 08:06 Dose: 15 mg Admin: 07/24/16 20:23 Dose: 15 mg Admin: 07/24/16 09:26 Dose: 15 mg Admin: 07/23/16 20:57 Dose: 15 mg Admin: 07/23/16 08:23 Dose: 15 mg Admin: 07/22/16 20:23 Dose: 15 mg Latanoprost (Xalatan 0.005% Ophth Soln) 0 ml EYEBOTH BEDTIME [facility] Last Admin: 07/24/16 20:24 Dose: 1 drop Admin: 07/23/16 20:56 Dose: 1 drop Admin: 07/22/16 20:26 Dose: 1 drop Lisinopril (Prinivil) 5 mg PO DAILY [facility] Last Admin: 07/25/16 08:06 Dose: 5 mg Admin: 07/24/16 09:26 Dose: 5 mg Admin: 07/23/16 08:26 Dose: 5 mg Metoprolol Tartrate (Lopressor) 50 mg PO DAILY [facility] Last Admin: 07/25/16 08:07 Dose: 50 mg Admin: 07/24/16 09:26 Dose: 50 mg Admin: 07/23/16 08:25 Dose: 50 mg Olanzapine (Zyprexa) 2.5 mg PO DAILY [facility] Last Admin: 07/25/16 08:11 Dose: 2.5 mg Admin: 07/24/16 09:27 Dose: 2.5 mg Admin: 07/23/16 08:28 Dose: 2.5 mg Olanzapine (Zyprexa) 10 mg PO BEDTIME [facility] Last Admin: 07/24/16 20:25 Dose: 10 mg Admin: 07/23/16 21:08 Dose: 10 mg Admin: 07/22/16 20:32 Dose: 10 mg Potassium Chloride (Klor-Con 8) 16 meq PO DAILY@1700 [facility] Last Admin: 07/24/16 18:07 Dose: 16 meq Admin: 07/23/16 16:10 Dose: 16 meq Admin: 07/22/16 17:52 Dose: 16 meq Sodium Chloride (Saline Flush) 10 ml FLUSH ASDIRECTED PRN PRN Reason: Keep Vein Open Last Admin: 07/23/16 14:03 Dose: 10 ml Admin: 07/22/16 17:27 Dose: 10 ml Warfarin Sodium (Coumadin) 2.5 mg PO DAILY@1700 [facility] - Assessment Assessment (Free Text/Narrative):: making slow progress. - Plan Plan (Free Text/Narrative):: change dressing in am restart coumadin. check PT, INR in am
[2016-07-25] MEDS: Potassium Chloride 8 MEQ Tab.ER PO SCH (16:25)
[2016-07-25] MEDS: Warfarin 2.5 MG Tab PO SCH (16:25)
[2016-07-25] MEDS: Latanoprost 0.005% Ophth Soln 2.5 ML Bottle EYEBOTH SCH (20:08)
[2016-07-25] MEDS: Vilazodone 20 MG Tab PO SCH (20:08)
[2016-07-25] MEDS: OLANZapine 10 MG Tab PO SCH (20:08)
[2016-07-26] MEDS: Sodium Chloride 0.9% 10 ML Syringe FLUSH PRN (06:49)
[2016-07-26] MEDS: buPROPion 150 MG Tab.ER PO SCH (08:50)
[2016-07-26] MEDS: OLANZapine 2.5 MG Tab PO SCH (08:50)
[2016-07-26] MEDS: Metoprolol Tartrate 50 MG Tab PO SCH (08:50)
[2016-07-26] MEDS: Isosorbide Mononitrate 30 MG Tab.ER PO SCH ×2 (08:51→20:43)
[2016-07-26] MEDS: Lisinopril 5 MG Tab PO SCH (08:51)
[2016-07-26] MEDS: Ferrous Sulfate 325 MG Tab PO SCH (08:54)
--- NOTE | 2016-07-26 09:16 | PCM.SURGPN ---
- General Info Date of Service: 07/26/16 Functional Status: Reports: tolerating diet, ambulating, urinating. Denies: new symptoms - Review of Systems Pulmonary: Reports: no symptoms Cardiovascular: Reports: No Symptoms Gastrointestinal: Reports: No symptoms Skin: Reports: no symptoms - Patient Data Vitals - most recent: Last Vital Signs Temp 36.8 C 07/26/16 08:49 Pulse 122 H 07/26/16 08:50 Resp 20 07/26/16 08:49 BP 146/105 H 07/26/16 08:50 Pulse Ox 94 L 07/26/16 08:49 Weight - most recent: 97.778 kg Lab Results last 24 hrs: Laboratory Results - last 24 hr 07/26/16 07/26/16 Range/Units 06:50 06:50 WBC 6.6 (4.5-12.0) X10-3/uL RBC 3.21 L (3.23-5.20) x10(6)uL Hgb 9.8 L (11.5-15.5) g/dL Hct 29.5 L (30.0-51.3) % MCV 91.8 (80-96) fL MCH 30.4 (27.7-33.6) pg MCHC 33.1 (32.2-35.4) g/dL RDW 13.0 (11.5-15.5) % Plt Count 240 (125-369) X10(3)uL MPV 8.4 (7.4-10.4) fL Neut % (Auto) 68.3 (46-82) % Lymph % (Auto) 15.4 (13-37) % [place] % (Auto) 9.7 (4-12) % Eos % (Auto) 6 H (1.0-5.0) % Baso % (Auto) 1 (0-2) % Neut # (Auto) 4.5 (1.6-8.3) # Lymph # (Auto) 1.0 (0.6-5.0) # [place] # (Auto) 0.6 (0.0-1.3) # Eos # (Auto) 0.4 (0.0-0.8) # Baso # (Auto) 0.1 (0.0-0.2) # PT 12.9 H (8.7-11.1) INR 1.27 H (0.89-1.13) Med Orders - Current: Current Medications Acetaminophen (Tylenol) 650 mg PO Q6H PRN PRN Reason: Pain (mild 1-3) Bupropion HCl (Wellbutrin Xl) 300 mg PO DAILY [facility] Last Admin: 07/26/16 08:50 Dose: 300 mg Ferrous Sulfate (Ferrous Sulfate) 325 mg PO DAILY [facility] Last Admin: 07/26/16 08:54 Dose: 325 mg Heparin Sodium (Porcine) (Heparin Lock Flush 100 Units/Ml Syringe) 500 units FLUSH ASDIRECTED PRN PRN Reason: Keep Vein Open Last Admin: 07/26/16 06:48 Dose: 500 units Isosorbide Mononitrate (Imdur) 15 mg PO BID [facility] Last Admin: 07/26/16 08:51 Dose: 15 mg Latanoprost (Xalatan 0.005% Ophth Soln) 0 ml EYEBOTH BEDTIME [facility] Last Admin: 07/25/16 20:08 Dose: 1 drop Lisinopril (Prinivil) 5 mg PO DAILY [facility] Last Admin: 07/26/16 08:51 Dose: 5 mg Metoprolol Tartrate (Lopressor) 50 mg PO DAILY [facility] Last Admin: 07/26/16 08:50 Dose: 50 mg Olanzapine (Zyprexa) 2.5 mg PO DAILY [facility] Last Admin: 07/26/16 08:50 Dose: 2.5 mg Olanzapine (Zyprexa) 10 mg PO BEDTIME [facility] Last Admin: 07/25/16 20:08 Dose: 10 mg Potassium Chloride (Klor-Con 8) 16 meq PO DAILY@1700 [facility] Last Admin: 07/25/16 16:25 Dose: 16 meq Sodium Chloride (Saline Flush) 10 ml FLUSH ASDIRECTED PRN PRN Reason: Keep Vein Open Last Admin: 07/26/16 06:49 Dose: 10 ml Warfarin Sodium (Coumadin) 2.5 mg PO DAILY@1600 [facility] Last Admin: 07/25/16 16:25 Dose: 2.5 mg Discontinued Medications Bupivacaine HCl (Marcaine 0.5%) 30 ml .XX .STK-MED ONE Stop: 07/22/16 11:45 Last Admin: 07/22/16 11:44 Dose: 30 ml Fentanyl (Sublimaze) 50 mcg IV .STK-MED ONE Stop: 07/22/16 11:16 Sodium Chloride (Normal Saline) 250 mls @ 100 mls/hr IV ASDIRECTED [facility] Last Admin: 07/23/16 11:09 Dose: 100 mls/hr Cefazolin Sodium/Dextrose 2 gm (/ Premix) 50 mls @ 100 mls/hr IV ONETIME ONE Stop: 07/22/16 09:29 Last Admin: 07/22/16 11:12 Dose: 100 mls/hr Lactated Ringer's (Ringers, Lactated) 1,000 mls @ 125 mls/hr IV ASDIRECTED [facility] Last Admin: 07/23/16 08:20 Dose: 125 mls/hr Sodium Chloride (Normal Saline) 1,000 mls @ 0 mls/hr IV ASDIRECTED [facility] PRN Reason: KVO Last Admin: 07/23/16 13:57 Dose: 75 mls/hr Sodium Chloride (Normal Saline) 250 mls @ 100 mls/hr IV ASDIRECTED [facility] Lidocaine HCl (Xylocaine 2%) 20 mg IVPUSH .STK-MED ONE Stop: 07/22/16 11:16 Propofol (Diprivan 20 Ml) 120 mg IV .STK-MED ONE Stop: 07/22/16 11:16 Vilazodone HCl (Viibryd) 20 mg PO BEDTIME [facility] Last Admin: 07/23/16 20:56 Dose: 20 mg - Exam Wound/Incisions: no drainage, other (granulatin tissue forming ). No: erythema Lungs: Clear to auscultation, Normal respiratory effort Cardiovascular: Regular Rate, Regular Rhythm - Problem List & Annotations (1) Wound infection after surgery SNOMED Code(s): 24470895, 254788410 Code(s): T81.4XXA - INFECTION FOLLOWING A PROCEDURE, INITIAL ENCOUNTER Status: Resolved Current Visit: Yes Qualifiers: Encounter type: subsequent encounter Qualified Code(s): T81.4XXD - Infection following a procedure, subsequent encounter - Problem List Review Problem List Initiated/Reviewed/Updated: Yes - My Orders Last 24 Hours: Active Orders 24 hr Category Date Time Status Ferrous Sulfate Med 07/26/16 09:00 Active 325 mg PO DAILY Warfarin [Coumadin] Med 07/25/16 16:00 Active 2.5 mg PO DAILY@1600 Medication Orders Acetaminophen (Tylenol) 650 mg PO Q6H PRN PRN Reason: Pain (mild 1-3) Bupropion HCl (Wellbutrin Xl) 300 mg PO DAILY [facility] Last Admin: 07/26/16 08:50 Dose: 300 mg Admin: 07/25/16 08:11 Dose: 300 mg Admin: 07/24/16 09:27 Dose: 300 mg Admin: 07/23/16 08:27 Dose: 300 mg Ferrous Sulfate (Ferrous Sulfate) 325 mg PO DAILY [facility] Last Admin: 07/26/16 08:54 Dose: 325 mg Heparin Sodium (Porcine) (Heparin Lock Flush 100 Units/Ml Syringe) 500 units FLUSH ASDIRECTED PRN PRN Reason: Keep Vein Open Last Admin: 07/26/16 06:48 Dose: 500 units Admin: 07/24/16 18:39 Dose: 500 units Isosorbide Mononitrate (Imdur) 15 mg PO BID [facility] Last Admin: 07/26/16 08:51 Dose: 15 mg Admin: 07/25/16 20:05 Dose: 15 mg Admin: 07/25/16 08:06 Dose: 15 mg Admin: 07/24/16 20:23 Dose: 15 mg Admin: 07/24/16 09:26 Dose: 15 mg Admin: 07/23/16 20:57 Dose: 15 mg Admin: 07/23/16 08:23 Dose: 15 mg Admin: 07/22/16 20:23 Dose: 15 mg Latanoprost (Xalatan 0.005% Ophth Soln) 0 ml EYEBOTH BEDTIME [facility] Last Admin: 07/25/16 20:08 Dose: 1 drop Admin: 07/24/16 20:24 Dose: 1 drop Admin: 07/23/16 20:56 Dose: 1 drop Admin: 07/22/16 20:26 Dose: 1 drop Lisinopril (Prinivil) 5 mg PO DAILY [facility] Last Admin: 07/26/16 08:51 Dose: 5 mg Admin: 07/25/16 08:06 Dose: 5 mg Admin: 07/24/16 09:26 Dose: 5 mg Admin: 07/23/16 08:26 Dose: 5 mg Metoprolol Tartrate (Lopressor) 50 mg PO DAILY [facility] Last Admin: 07/26/16 08:50 Dose: 50 mg Admin: 07/25/16 08:07 Dose: 50 mg Admin: 07/24/16 09:26 Dose: 50 mg Admin: 07/23/16 08:25 Dose: 50 mg Olanzapine (Zyprexa) 2.5 mg PO DAILY [facility] Last Admin: 07/26/16 08:50 Dose: 2.5 mg Admin: 07/25/16 08:11 Dose: 2.5 mg Admin: 07/24/16 09:27 Dose: 2.5 mg Admin: 07/23/16 08:28 Dose: 2.5 mg Olanzapine (Zyprexa) 10 mg PO BEDTIME [facility] Last Admin: 07/25/16 20:08 Dose: 10 mg Admin: 07/24/16 20:25 Dose: 10 mg Admin: 07/23/16 21:08 Dose: 10 mg Admin: 07/22/16 20:32 Dose: 10 mg Potassium Chloride (Klor-Con 8) 16 meq PO DAILY@1700 [facility] Last Admin: 07/25/16 16:25 Dose: 16 meq Admin: 07/24/16 18:07 Dose: 16 meq Admin: 07/23/16 16:10 Dose: 16 meq Admin: 07/22/16 17:52 Dose: 16 meq Sodium Chloride (Saline Flush) 10 ml FLUSH ASDIRECTED PRN PRN Reason: Keep Vein Open Last Admin: 07/26/16 06:49 Dose: 10 ml Admin: 07/23/16 14:03 Dose: 10 ml Admin: 07/22/16 17:27 Dose: 10 ml Warfarin Sodium (Coumadin) 2.5 mg PO DAILY@1600 [facility] Last Admin: 07/25/16 16:25 Dose: 2.5 mg - Assessment Assessment (Free Text/Narrative):: anticipate discharge in am - Plan Plan (Free Text/Narrative):: continue current rx.
[2016-07-26] MEDS: Warfarin 2.5 MG Tab PO SCH (15:58)
[2016-07-26] MEDS: Potassium Chloride 8 MEQ Tab.ER PO SCH (16:00)
[2016-07-26] MEDS ORDERED: Polyethylene Glycol 3350 Powder 238 GM Bot PO SCH (20:15)
[2016-07-26] MEDS ORDERED: Bisacodyl 10 MG Supp RECTAL ONE (20:20)
[2016-07-26] MEDS: Latanoprost 0.005% Ophth Soln 2.5 ML Bottle EYEBOTH SCH (20:45)
[2016-07-26] MEDS: OLANZapine 10 MG Tab PO SCH (20:45)
[2016-07-26] MEDS: Vilazodone 20 MG Tab PO SCH (20:45)
[2016-07-27] MEDS ORDERED: Polyethylene Glycol 3350 Powder 238 GM Bot PO SCH (07:02)
[2016-07-27 07:53] VITALS: BP 137/82
--- NOTE | 2016-07-27 07:55 | PCM.SURGPN ---
- General Info Date of Service: 07/27/16 Functional Status: Reports: pain controlled, new symptoms - Review of Systems Pulmonary: Reports: no symptoms Cardiovascular: Reports: No Symptoms Gastrointestinal: Reports: No symptoms Skin: Reports: no symptoms - Patient Data Vitals - most recent: Last Vital Signs Temp 36.8 C 07/27/16 07:52 Pulse 113 H 07/27/16 07:52 Resp 18 07/27/16 07:52 BP 137/82 07/27/16 07:52 Pulse Ox 96 07/27/16 07:52 Weight - most recent: 98.021 kg I&O - last 24 hours: Intake & Output 07/26/16 07/27/16 07/27/16 22:59 06:59 14:59 Intake Total 120 Balance 120 Med Orders - Current: Current Medications Acetaminophen (Tylenol) 650 mg PO Q6H PRN PRN Reason: Pain (mild 1-3) Bupropion HCl (Wellbutrin Xl) 300 mg PO DAILY [facility] Last Admin: 07/26/16 08:50 Dose: 300 mg Ferrous Sulfate (Ferrous Sulfate) 325 mg PO DAILY [facility] Last Admin: 07/26/16 08:54 Dose: 325 mg Heparin Sodium (Porcine) (Heparin Lock Flush 100 Units/Ml Syringe) 500 units FLUSH ASDIRECTED PRN PRN Reason: Keep Vein Open Last Admin: 07/26/16 06:48 Dose: 500 units Isosorbide Mononitrate (Imdur) 15 mg PO BID [facility] Last Admin: 07/26/16 20:43 Dose: 15 mg Latanoprost (Xalatan 0.005% Ophth Soln) 0 ml EYEBOTH BEDTIME [facility] Last Admin: 07/26/16 20:45 Dose: 1 drop Lisinopril (Prinivil) 5 mg PO DAILY [facility] Last Admin: 07/26/16 08:51 Dose: 5 mg Metoprolol Tartrate (Lopressor) 50 mg PO DAILY [facility] Last Admin: 07/26/16 08:50 Dose: 50 mg Olanzapine (Zyprexa) 2.5 mg PO DAILY [facility] Last Admin: 07/26/16 08:50 Dose: 2.5 mg Olanzapine (Zyprexa) 10 mg PO BEDTIME [facility] Last Admin: 07/26/16 20:45 Dose: 10 mg Polyethylene Glycol (Miralax) 0 gm PO DAILY [facility] Potassium Chloride (Klor-Con 8) 16 meq PO DAILY@1700 [facility] Last Admin: 07/26/16 16:00 Dose: 16 meq Sodium Chloride (Saline Flush) 10 ml FLUSH ASDIRECTED PRN PRN Reason: Keep Vein Open Last Admin: 07/26/16 06:49 Dose: 10 ml Warfarin Sodium (Coumadin) 2.5 mg PO DAILY@1600 [facility] Last Admin: 07/26/16 15:58 Dose: 2.5 mg Discontinued Medications Bisacodyl (Dulcolax) 10 mg RECTAL ONETIME ONE Stop: 07/26/16 20:21 Last Admin: 07/26/16 21:13 Dose: Not Given Bupivacaine HCl (Marcaine 0.5%) 30 ml .XX .STK-MED ONE Stop: 07/22/16 11:45 Last Admin: 07/22/16 11:44 Dose: 30 ml Fentanyl (Sublimaze) 50 mcg IV .STK-MED ONE Stop: 07/22/16 11:16 Sodium Chloride (Normal Saline) 250 mls @ 100 mls/hr IV ASDIRECTED [facility] Last Admin: 07/23/16 11:09 Dose: 100 mls/hr Cefazolin Sodium/Dextrose 2 gm (/ Premix) 50 mls @ 100 mls/hr IV ONETIME ONE Stop: 07/22/16 09:29 Last Admin: 07/22/16 11:12 Dose: 100 mls/hr Lactated Ringer's (Ringers, Lactated) 1,000 mls @ 125 mls/hr IV ASDIRECTED [facility] Last Admin: 07/23/16 08:20 Dose: 125 mls/hr Sodium Chloride (Normal Saline) 1,000 mls @ 0 mls/hr IV ASDIRECTED [facility] PRN Reason: KVO Last Admin: 07/23/16 13:57 Dose: 75 mls/hr Sodium Chloride (Normal Saline) 250 mls @ 100 mls/hr IV ASDIRECTED [facility] Lidocaine HCl (Xylocaine 2%) 20 mg IVPUSH .STK-MED ONE Stop: 07/22/16 11:16 Polyethylene Glycol (Miralax) 17 gm PO DAILY [facility] Last Admin: 07/26/16 20:40 Dose: 17 gm Propofol (Diprivan 20 Ml) 120 mg IV .STK-MED ONE Stop: 07/22/16 11:16 Vilazodone HCl (Viibryd) 20 mg PO BEDTIME [facility] Last Admin: 07/23/16 20:56 Dose: 20 mg - Exam Wound/Incisions: dressing dry and intact Lungs: Clear to auscultation, Normal respiratory effort Cardiovascular: Regular Rate, Regular Rhythm - Problem List & Annotations (1) Wound infection after surgery SNOMED Code(s): 28757305, 146647493 Code(s): T81.4XXA - INFECTION FOLLOWING A PROCEDURE, INITIAL ENCOUNTER Status: Resolved Current Visit: Yes Qualifiers: Encounter type: subsequent encounter Qualified Code(s): T81.4XXD - Infection following a procedure, subsequent encounter - Problem List Review Problem List Initiated/Reviewed/Updated: Yes - My Orders Last 24 Hours: Active Orders 24 hr Category Date Time Status Ready for Discharge [RC] PER UNIT ROUTINE Care 07/27/16 07:53 Ordered Ferrous Sulfate Med 07/26/16 09:00 Active 325 mg PO DAILY Polyethylene Glycol 3350 [MiraLAX] Med 07/27/16 07:02 Active 0 gm PO DAILY Medication Orders Acetaminophen (Tylenol) 650 mg PO Q6H PRN PRN Reason: Pain (mild 1-3) Bupropion HCl (Wellbutrin Xl) 300 mg PO DAILY [facility] Last Admin: 07/26/16 08:50 Dose: 300 mg Admin: 07/25/16 08:11 Dose: 300 mg Admin: 07/24/16 09:27 Dose: 300 mg Admin: 07/23/16 08:27 Dose: 300 mg Ferrous Sulfate (Ferrous Sulfate) 325 mg PO DAILY [facility] Last Admin: 07/26/16 08:54 Dose: 325 mg Heparin Sodium (Porcine) (Heparin Lock Flush 100 Units/Ml Syringe) 500 units FLUSH ASDIRECTED PRN PRN Reason: Keep Vein Open Last Admin: 07/26/16 06:48 Dose: 500 units Admin: 07/24/16 18:39 Dose: 500 units Isosorbide Mononitrate (Imdur) 15 mg PO BID [facility] Last Admin: 07/26/16 20:43 Dose: 15 mg Admin: 07/26/16 08:51 Dose: 15 mg Admin: 07/25/16 20:05 Dose: 15 mg Admin: 07/25/16 08:06 Dose: 15 mg Admin: 07/24/16 20:23 Dose: 15 mg Admin: 07/24/16 09:26 Dose: 15 mg Admin: 07/23/16 20:57 Dose: 15 mg Admin: 07/23/16 08:23 Dose: 15 mg Admin: 07/22/16 20:23 Dose: 15 mg Latanoprost (Xalatan 0.005% Ophth Soln) 0 ml EYEBOTH BEDTIME [facility] Last Admin: 07/26/16 20:45 Dose: 1 drop Admin: 07/25/16 20:08 Dose: 1 drop Admin: 07/24/16 20:24 Dose: 1 drop Admin: 07/23/16 20:56 Dose: 1 drop Admin: 07/22/16 20:26 Dose: 1 drop Lisinopril (Prinivil) 5 mg PO DAILY [facility] Last Admin: 07/26/16 08:51 Dose: 5 mg Admin: 07/25/16 08:06 Dose: 5 mg Admin: 07/24/16 09:26 Dose: 5 mg Admin: 07/23/16 08:26 Dose: 5 mg Metoprolol Tartrate (Lopressor) 50 mg PO DAILY [facility] Last Admin: 07/26/16 08:50 Dose: 50 mg Admin: 07/25/16 08:07 Dose: 50 mg Admin: 07/24/16 09:26 Dose: 50 mg Admin: 07/23/16 08:25 Dose: 50 mg Olanzapine (Zyprexa) 2.5 mg PO DAILY [facility] Last Admin: 07/26/16 08:50 Dose: 2.5 mg Admin: 07/25/16 08:11 Dose: 2.5 mg Admin: 07/24/16 09:27 Dose: 2.5 mg Admin: 07/23/16 08:28 Dose: 2.5 mg Olanzapine (Zyprexa) 10 mg PO BEDTIME [facility] Last Admin: 07/26/16 20:45 Dose: 10 mg Admin: 07/25/16 20:08 Dose: 10 mg Admin: 07/24/16 20:25 Dose: 10 mg Admin: 07/23/16 21:08 Dose: 10 mg Admin: 07/22/16 20:32 Dose: 10 mg Polyethylene Glycol (Miralax) 0 gm PO DAILY [facility] Potassium Chloride (Klor-Con 8) 16 meq PO DAILY@1700 [facility] Last Admin: 07/26/16 16:00 Dose: 16 meq Admin: 07/25/16 16:25 Dose: 16 meq Admin: 07/24/16 18:07 Dose: 16 meq Admin: 07/23/16 16:10 Dose: 16 meq Admin: 07/22/16 17:52 Dose: 16 meq Sodium Chloride (Saline Flush) 10 ml FLUSH ASDIRECTED PRN PRN Reason: Keep Vein Open Last Admin: 07/26/16 06:49 Dose: 10 ml Admin: 07/23/16 14:03 Dose: 10 ml Admin: 07/22/16 17:27 Dose: 10 ml Warfarin Sodium (Coumadin) 2.5 mg PO DAILY@1600 DEX Last Admin: 07/26/16 15:58 Dose: 2.5 mg Admin: 07/25/16 16:25 Dose: 2.5 mg - Assessment Assessment (Free Text/Narrative):: ready for discharge - Plan Plan (Free Text/Narrative):: d/c to home
--- NOTE | 2016-07-27 07:58 | PCM.DCSUM1 ---
Discharge Summary - Hospital Course Free Text/Narrative:: Pt admitted and underwent debridement of her wound in the OR. wound has remained clean and has developed granulation tissue. Dressing changes were converted from bolster to Aquacel Ag with a cover. this appears to be working nicely. She did recieve 2 units of FFp as well as a unit of PRBC during her hospitalization. coumadin was restarted day prior to discharge. - Discharge Data Discharge Date: 07/27/16 Discharge Disposition: Home, Self-Care 01 Condition: Good - Discharge Diagnosis/Problem(s) (1) Wound infection after surgery SNOMED Code(s): 73154599, 627083117 ICD Code: T81.4XXA - INFECTION FOLLOWING A PROCEDURE, INITIAL ENCOUNTER Status: Resolved Current Visit: Yes Qualifiers: Encounter type: subsequent encounter Qualified Code(s): T81.4XXD - Infection following a procedure, subsequent encounter - Patient Summary/Data Operative Procedure(s) Performed: wound debridement - Patient Instructions Diet: Usual Diet as Tolerated, No Alcoholic Beverages Activity: No Strenuous Activities Driving: Do Not Drive Showering/Bathing: May Shower Wound/Incision Care: Do NOT Change Dressing Notify Provider of: Swelling and Redness, Drainage - Discharge Plan Home Medications: Home Meds Cholecalciferol (Vitamin D3) [Vitamin D3] 1,000 unit PO DAILY@1200 01/23/13 [ History] Isosorbide Mononitrate [Isosorbide Mononitrate ER] 15 mg PO BID 01/23/13 [ History] Latanoprost 1 drop EYEBOTH BEDTIME 01/23/13 [History] Lisinopril 5 mg PO DAILY 01/23/13 [History] Metoprolol Tartrate 50 mg PO DAILY 01/23/13 [History] Potassium Chloride [Klor-Con 8] 16 meq PO DAILY@1700 01/23/13 [History] Cyanocobalamin (Vitamin B-12) [B-12 Compliance] 1,000 mcg IM Q30D 05/04/16 [ History] OLANZapine [ZyPREXA] 2.5 mg PO DAILY 05/04/16 [History] OLANZapine [ZyPREXA] 10 mg PO BEDTIME 05/04/16 [History] Acetaminophen 650 mg PO Q4H PRN 07/17/16 [History] Polyethylene Glycol 3350 [MiraLAX] 17 gm PO DAILY 07/17/16 [History] Vilazodone [Viibryd] 20 mg PO BEDTIME 07/17/16 [History] Warfarin [Coumadin] 2.5 mg PO DAILY@1700 07/17/16 [History] buPROPion [Wellbutrin XL] 300 mg PO DAILY 07/17/16 [History] Ferrous Sulfate 325 mg PO DAILY #30 tablet 07/18/16 [Rx] Referrals: Saji Moise MD [Physician] - 07/28/16 (for dressing change ) - Patient Data Vitals - Most Recent: Last Vital Signs Temp 36.8 C 07/27/16 07:52 Pulse 113 H 07/27/16 07:52 Resp 18 07/27/16 07:52 BP 137/82 07/27/16 07:52 Pulse Ox 96 07/27/16 07:52 Weight - Most Recent: 98.021 kg I&O - Last 24 hours: Intake & Output 07/26/16 07/27/16 07/27/16 22:59 06:59 14:59 Intake Total 120 Balance 120 Med Orders - Current: Current Medications Acetaminophen (Tylenol) 650 mg PO Q6H PRN PRN Reason: Pain (mild 1-3) Bupropion HCl (Wellbutrin Xl) 300 mg PO DAILY [facility] Last Admin: 07/26/16 08:50 Dose: 300 mg Ferrous Sulfate (Ferrous Sulfate) 325 mg PO DAILY [facility] Last Admin: 07/26/16 08:54 Dose: 325 mg Heparin Sodium (Porcine) (Heparin Lock Flush 100 Units/Ml Syringe) 500 units FLUSH ASDIRECTED PRN PRN Reason: Keep Vein Open Last Admin: 07/26/16 06:48 Dose: 500 units Isosorbide Mononitrate (Imdur) 15 mg PO BID [facility] Last Admin: 07/26/16 20:43 Dose: 15 mg Latanoprost (Xalatan 0.005% Ophth Soln) 0 ml EYEBOTH BEDTIME [facility] Last Admin: 07/26/16 20:45 Dose: 1 drop Lisinopril (Prinivil) 5 mg PO DAILY [facility] Last Admin: 07/26/16 08:51 Dose: 5 mg Metoprolol Tartrate (Lopressor) 50 mg PO DAILY [facility] Last Admin: 07/26/16 08:50 Dose: 50 mg Olanzapine (Zyprexa) 2.5 mg PO DAILY [facility] Last Admin: 07/26/16 08:50 Dose: 2.5 mg Olanzapine (Zyprexa) 10 mg PO BEDTIME [facility] Last Admin: 07/26/16 20:45 Dose: 10 mg Polyethylene Glycol (Miralax) 0 gm PO DAILY [facility] Potassium Chloride (Klor-Con 8) 16 meq PO DAILY@1700 [facility] Last Admin: 07/26/16 16:00 Dose: 16 meq Sodium Chloride (Saline Flush) 10 ml FLUSH ASDIRECTED PRN PRN Reason: Keep Vein Open Last Admin: 07/26/16 06:49 Dose: 10 ml Warfarin Sodium (Coumadin) 2.5 mg PO DAILY@1600 [facility] Last Admin: 07/26/16 15:58 Dose: 2.5 mg Discontinued Medications Bisacodyl (Dulcolax) 10 mg RECTAL ONETIME ONE Stop: 07/26/16 20:21 Last Admin: 07/26/16 21:13 Dose: Not Given Bupivacaine HCl (Marcaine 0.5%) 30 ml .XX .STK-MED ONE Stop: 07/22/16 11:45 Last Admin: 07/22/16 11:44 Dose: 30 ml Fentanyl (Sublimaze) 50 mcg IV .STK-MED ONE Stop: 07/22/16 11:16 Sodium Chloride (Normal Saline) 250 mls @ 100 mls/hr IV ASDIRECTED [facility] Last Admin: 07/23/16 11:09 Dose: 100 mls/hr Cefazolin Sodium/Dextrose 2 gm (/ Premix) 50 mls @ 100 mls/hr IV ONETIME ONE Stop: 07/22/16 09:29 Last Admin: 07/22/16 11:12 Dose: 100 mls/hr Lactated Ringer's (Ringers, Lactated) 1,000 mls @ 125 mls/hr IV ASDIRECTED [facility] Last Admin: 07/23/16 08:20 Dose: 125 mls/hr Sodium Chloride (Normal Saline) 1,000 mls @ 0 mls/hr IV ASDIRECTED DEX PRN Reason: KVO Last Admin: 07/23/16 13:57 Dose: 75 mls/hr Sodium Chloride (Normal Saline) 250 mls @ 100 mls/hr IV ASDIRECTED [facility] Lidocaine HCl (Xylocaine 2%) 20 mg IVPUSH .STK-MED ONE Stop: 07/22/16 11:16 Polyethylene Glycol (Miralax) 17 gm PO DAILY [facility] Last Admin: 07/26/16 20:40 Dose: 17 gm Propofol (Diprivan 20 Ml) 120 mg IV .STK-MED ONE Stop: 07/22/16 11:16 Vilazodone HCl (Viibryd) 20 mg PO BEDTIME [facility] Last Admin: 07/23/16 20:56 Dose: 20 mg *Q Meaningful Use (DIS) - VTE *Q VTE Criteria *Q: - Stroke *Q Stroke Criteria *Q: - AMI *Q AMI Criteria *Q:
[2016-07-27] MEDS: Ferrous Sulfate 325 MG Tab PO SCH (08:03)
[2016-07-27] MEDS: Isosorbide Mononitrate 30 MG Tab.ER PO SCH (08:03)
[2016-07-27] MEDS: Lisinopril 5 MG Tab PO SCH (08:04)
[2016-07-27] MEDS: buPROPion 150 MG Tab.ER PO SCH (08:04)
[2016-07-27] MEDS: Metoprolol Tartrate 50 MG Tab PO SCH (08:04)
[2016-07-27] MEDS: OLANZapine 2.5 MG Tab PO SCH (08:05)
--- NOTE | 2016-07-29 14:51 | PCM.SN ---
- Free Text/Narrative Note: lATE ENTRY: PROPOFOL 120MG lIDOCAINE 20MG GIVEN DURING i AND d SURGERY 07/22/16
== END 2016-07-27 11:36 | disposition home or self-care (01) | DRG 950 ==
LOC: FB.SDS 06:59 → FB.MS 12:09
PROVIDERS: ADMIT Surgery; ATTEND Surgery
PROC: 30253N1 (ICD-10-PCS; principal; 2016-07-23)
DX: T81.31XD Disruption of external operation (surgical) wound, not elsewhere classified, subsequent encounter (principal); T81.4XXD Infection following a procedure, subsequent encounter; H26.9 Unspecified cataract; I48.91 Unspecified atrial fibrillation; I10 Essential (primary) hypertension; F03.90 Unspecified dementia, unspecified severity, without behavioral disturbance, psychotic disturbance, mood disturbance, and anxiety; F32.9 Major depressive disorder, single episode, unspecified; Z66 Do not resuscitate; Z79.01 Long term (current) use of anticoagulants; D64.9 Anemia, unspecified; Z79.899 Other long term (current) drug therapy; Z88.8 Allergy status to other drugs, medicaments and biological substances; Z95.2 Presence of prosthetic heart valve
CPT/HCPCS: 36415; 36430; 80048; 85025; 85610; 86900; 86901; 88305; 93005; 97602; 99285 ×2; J0690; J2704; J3010; J7050; J7120; P9017; 86850; 86920; 86922; 94150; A9270-GY; J1642; J7040; P9016

== ENCOUNTER 2016-07-29 08:31 | Emergency (ER) | payer MEDICARE, OTHER ==
[2016-07-29 08:56] VITALS: BP 147/95
--- NOTE | 2016-08-01 08:33 | PCM.SN ---
- Free Text/Narrative Note: pt presented to the ed with a complaint of bleeding from the surgical wound. wound was examined clot was removed and bleeding was stopped with the application of surgicel. wound was redressed with Aquacel Ag and duoderm. Pt will follow up the next day for dressing change.
== END 2016-07-29 09:05 | disposition home or self-care (01) ==
LOC: FB.ED 08:31
DX: Z53.21 Procedure and treatment not carried out due to patient leaving prior to being seen by health care provider (principal)
CPT/HCPCS: 99283

== ENCOUNTER 2016-07-30 18:57 | Emergency (ER) | payer MEDICARE, OTHER ==
[2016-07-30 21:10] VITALS: BP 148/62
--- NOTE | 2016-08-01 05:39 | ER ---
DATE SEEN: 07/30/2016 REASON FOR VISIT: Head injury. HISTORY OF PRESENT ILLNESS: This is a 80-year-old female, who fell. She was being helped by two nurses and lost her balance, hit the head, did not lose consciousness. She came to the ER for further evaluation. She complains of no headache. PAST MEDICAL HISTORY: Syncopal episode, CHF, atrial fibrillation, long-term anticoagulation, depression, and dementia. ALLERGIES: Please see the electronic record. MEDICATIONS: Please see the electronic record. SOCIAL HISTORY: She lives at [facility]. PHYSICAL EXAMINATION: VITAL SIGNS: Blood pressure is 128/74 and temperature 98.5. HEAD: Normal size. There is a small bruise on the occipital scalp about 2 to 3 cm in size. NECK: Supple. No tenderness to palpation. Full range of motion. CHEST: Clear. NEUROLOGIC: Mental status alert. Memory, disturbed. No neurological deficits noted. LABORATORY DATA: INR was not available, but yesterday it was 3.1. IMAGING: CT head, nonacute, specifically no intracranial pathology or bleed. IMPRESSION: Mild closed head injury. PLAN: Discharge home. Follow up deidre /[id number] AMY/FAITH
== END 2016-07-30 20:50 | disposition home or self-care (01) ==
LOC: FB.ED 18:57
DX: S09.90XA Unspecified injury of head, initial encounter (principal); I50.9 Heart failure, unspecified; I48.91 Unspecified atrial fibrillation; F32.9 Major depressive disorder, single episode, unspecified; F03.90 Unspecified dementia, unspecified severity, without behavioral disturbance, psychotic disturbance, mood disturbance, and anxiety; Z79.01 Long term (current) use of anticoagulants; W19.XXXA Unspecified fall, initial encounter
CPT/HCPCS: 70450; 96374; 99283; J1642

== ENCOUNTER 2016-10-19 14:15 | Emergency (ER) | payer MEDICARE, OTHER ==
--- NOTE | 2016-10-19 15:55 | CT ---
INDICATION: Fell, striking right frontal area; patient is on Coumadin. CT HEAD WITHOUT CONTRAST: Serial contiguous 2.5 and 5-mm sections were obtained through the brain without contrast and compared with previous examination of 07/30/2016. There is noted a small scalp hematoma overlying the right frontal bone. No underlying fracture site was identified. Retention cyst is noted in a mid frontal air cell, as previously. Thickening of the lining of the left maxillary antrum is moderate with some fluid present in that sinus, possibly on the basis of sinusitis as previously. This should be correlated clinically. Paranasal sinuses and mastoid air cells were otherwise fairly well aerated. Calcifications are heavy in the internal carotid and vertebral arteries. An extraaxial area of calcification is noted. This is compatible with incidental meningioma, as previously, with no change. No significant shift of midline structures was seen. The ventricles are somewhat prominent, compatible with mild degree of central atrophy. Sulci are prominent in the right temporal and frontal area, compatible with cortical atrophy in that region - etiology indeterminate. White matter changes compatible with microvascular disease are again noted, although other cause of leukoencephalopathy cannot be excluded. No bleeding site or hematoma was identified - no acute intracranial abnormality was seen. IMPRESSION: 1. No acute intracranial abnormality. 2. Stable CT brain compared with 07/30/2016. 3. Incidental right posterior fossa meningioma. 4. Arterial calcifications. 5. Microvascular disease type changes in the white matter. 6. Right temporal and frontal cortical atrophy, as well as mild central atrophy. 7. Mild microvascular disease type changes in the white matter - correlate clinically. Report was called to Dr. Rock at 1537 hours, 10/19/2016. Total Exam DLP = 949.36 mGy-cm. MTDD
[2016-10-19 15:56] VITALS: BP 154/84
--- NOTE | 2016-10-19 21:55 | ER ---
DATE SEEN: 10/19/2016 CHIEF COMPLAINT: Fall. HISTORY OF PRESENT ILLNESS: This is a 81-year-old female who fell at [facility], was walking with a walker, but slipped and hit the head, did not lose consciousness, complains of mild headache. She does take Coumadin. REVIEW OF SYSTEMS: No nausea, no seizure, no fever, no neck pain, no weakness of one side. No visual disturbance. MEDICATIONS: Please see the nurse's notes. ALLERGIES: Please see the nurse's notes. PHYSICAL EXAMINATION: GENERAL: Not in any cardiopulmonary distress. VITAL SIGNS: Blood pressure 120/70, temperature 98.6. HEENT: Head, normal size. There is a huge bruise on the right side of the glabella. Eyes, pupils are equal and reactive with normal extraocular movements. NECK: Soft with no tenderness to palpation. NEUROLOGIC: Has no lateralizing signs. CT head was negative. IMPRESSION: Head injury closed. PLAN: Discharged home. INR is 2.3. Advised to follow up p.r.n., return with any worsening symptoms. Time seen was 1500 hours. /[id number] AMY/FAITH
== END 2016-10-19 15:57 | disposition home or self-care (01) ==
LOC: FB.ED 14:15
DX: S09.90XA Unspecified injury of head, initial encounter (principal); W01.0XXA Fall on same level from slipping, tripping and stumbling without subsequent striking against object, initial encounter; Y92.89 Other specified places as the place of occurrence of the external cause
CPT/HCPCS: 36415; 70450; 85610; 99283; 99284

== ENCOUNTER 2017-03-11 13:08 | Emergency (ER) | payer MEDICARE, OTHER ==
[2017-03-11 13:18] VITALS: BP 106/62
[2017-03-11] MEDS ORDERED: Sodium Chloride 0.9% 1,000 ML IV SCH (15:15)
--- NOTE | 2017-03-11 15:28 | EDM.PDOC ---
ED HPI GENERAL MEDICAL PROBLEM - General Chief Complaint: Syncope Stated Complaint: UNRESPONSIVE Time Seen by Provider: 03/11/17 13:15 Source of Information: Reports: Patient, EMS, Family History Limitations: Reports: Altered Mental Status - History of Present Illness INITIAL COMMENTS - FREE TEXT/NARRATIVE: 81 years old w f came the ed because she passed out while in the shelter.Pt is DNR/DNI, poor historian. Pt takes many meds and drinks coffee. Pt had no active complains. No N/V/D or any other acute medical issues. BP 106/52 puls 77 temp 36.4 O2 sat 94 % on RA Onset: Today Onset Date: 03/11/17 Onset Time: 12:00 Duration: Minutes: Location: Reports: Generalized Improves with: Reports: None Worsens with: Reports: None - Related Data Allergies Allergy/AdvReac Type Severity Reaction Status Date / Time amiodarone Allergy Unknown Cannot Verified 03/11/17 13:13 Remember lidocaine Allergy Unknown Cannot Verified 03/11/17 13:13 Remember lincomycin HCl Allergy Unknown Cannot Verified 03/11/17 13:13 [From Lincocin] Remember minocycline HCl Allergy Unknown Cannot Verified 03/11/17 13:13 [From Minocin] Remember red (food color) Allergy Unknown Cannot Verified 03/11/17 13:13 Remember Skin Cleanser Combination Allergy Unknown Cannot Verified 03/11/17 13:13 No.4 Remember [From Minocin] Sulfa (Sulfonamide Allergy Unknown Cannot Verified 03/11/17 13:13 Antibiotics) Remember Home Meds: Home Meds Cholecalciferol (Vitamin D3) [Vitamin D3] 1,000 unit PO DAILY@1200 01/23/13 [ History] Isosorbide Mononitrate [Isosorbide Mononitrate ER] 15 mg PO BID 01/23/13 [ History] Latanoprost 1 drop EYEBOTH BEDTIME 01/23/13 [History] Lisinopril 5 mg PO DAILY 01/23/13 [History] Metoprolol Tartrate 50 mg PO DAILY 01/23/13 [History] Cyanocobalamin (Vitamin B-12) [B-12 Compliance] 1,000 mcg IM Q30D 05/04/16 [ History] OLANZapine [ZyPREXA] 2.5 mg PO DAILY MDD 8AM 05/04/16 [History] OLANZapine [ZyPREXA] 10 mg PO BEDTIME 05/04/16 [History] Acetaminophen 650 mg PO Q4H PRN 07/17/16 [History] Polyethylene Glycol 3350 [MiraLAX] 17 gm PO DAILY 07/17/16 [History] Vilazodone [Viibryd] 20 mg PO BEDTIME 07/17/16 [History] Warfarin [Coumadin] 2.5 mg PO ASDIRECTED MDD TU,W,TH,SA,CRISTINA&5PM 07/17/16 [History ] buPROPion [Wellbutrin XL] 300 mg PO DAILY 07/17/16 [History] Ferrous Sulfate 325 mg PO DAILY #30 tablet 07/18/16 [Rx] LORazepam 0.25 mg PO Q8HR 10/19/16 [History] Loperamide [Imodium] 2 mg PO Q12HR 10/19/16 [History] Potassium Chloride 2 tab PO DAILY 10/19/16 [History] Warfarin [Coumadin] 5 mg PO DAILY MDD MON,FRI @ 5PM 10/19/16 [History] Clotrimazole [Lotrimin AF 1% Crm] 30 gm TOP BID #1 tube 03/11/17 [Rx] Past Medical History HEENT History: Reports: Cataract Cardiovascular History: Reports: Afib, Heart Valve Replacement, Hypertension Other Cardiovascular History: mitral valve Respiratory History: Reports: None Gastrointestinal History: Reports: None DOCUMENT SPECIALIST History: Reports: , Other (See Below) Other OB/BYN History: partial hysterectomy? unsure. Musculoskeletal History: Reports: Arthritis Other Musculoskeletal History: right knee pain. Hydrocortison shots on right knee Neurological History: Reports: Other (See Below) Other Neuro History: dizzy spells Psychiatric History: Reports: Dementia, Depression Hematologic History: Reports: Anticoagulation Therapy, Blood Transfusion(s) Other Hematologic History: takes vitamin b-12 Immunologic History: Reports: None Oncologic (Cancer) History: Reports: Malignant Melanoma Dermatologic History: Reports: Melanoma Other Dermatologic History: mole taken off on head. - Infectious Disease History Infectious Disease History: Reports: Chicken Pox, Measles - Past Surgical History HEENT Surgical History: Reports: Cataract Surgery Cardiovascular Surgical History: Reports: Valve Replacement, Other (See Below) Other Cardiovascular Surgeries/Procedures: port placement Female Surgical History: Reports: Hysterectomy Dermatological Surgical History: Reports: Skin Biopsy, Other (See Below) Social & Family History - Family History Family Medical History: Noncontributory - Tobacco Use Smoking Status *Q: Never Smoker Used Tobacco, but Quit: No Second Hand Smoke Exposure: No - Caffeine Use Caffeine Use: Reports: Coffee Caffeine Use Comment: PT REPORTS USE "NOT VERY OFTEN" - Alcohol Use Days Per Week of Alcohol Use: 0 - Recreational Drug Use Recreational Drug Use: No Drug Use in Last 12 Months: No ED ROS GENERAL - Review of Systems Review Of Systems: Unable To Obtain - Physical Exam Exam: See Below Exam Limited By: Altered Mental Status General Appearance: WD/WN, Lethargic, Mild Distress, Obese Eye Exam: Bilateral Eye: Normal Inspection Ears: Normal External Exam Nose: Normal Inspection Throat/Mouth: Other (dry mucosal memranes) Head Exam: Atraumatic, Normocephalic Neck: Normal Inspection, Supple, Non-Tender Respiratory/Chest: No Respiratory Distress, Lungs Clear (poor insp effort) Cardiovascular: Normal Peripheral Pulses GI/Abdominal: Normal Bowel Sounds (Female) Exam: Deferred Rectal (Female) Exam: Deferred Neuro Exam (Abbreviated): Alert, CN II-XII Intact, Slow to Respond Back Exam: Normal Inspection, Full Range of Motion Extremities: Normal Inspection Psychiatric: Normal Affect, Normal Mood Skin Exam: Warm, Dry, Rash (bilateral groin) Course - Vital Signs Text/Narrative:: 81 years old w f came the ed because she passed out while in the shelter.Pt is DNR/DNI, poor historian. Pt takes many meds and drinks coffee. Pt had no active complains. No N/V/D or any other acute medical issues. BP 106/52 puls 77 temp 36.4 O2 sat 94 % on RA PE: S/P syncopal episode, Dehydration, Inguinal rash Labs: INR 2.25 Na 132 K 4.1 CBC wnl Lactic acid 2.9 Imaging: CXR enlarged HS, official report is pending. Impression: S/P syncopal episode, Dehydration, Inguinal rash Tx: NS was ordered, not given in the ed. Pt is able to take water orally. Reexam: Pt was doing better her in the ed, her SO arrived. Plan: D/C back to the [place] with instructions Last Recorded V/S: Last Vital Signs Temp 36.6 C 03/11/17 13:15 Pulse 77 03/11/17 13:15 Resp 17 03/11/17 13:15 BP 106/62 03/11/17 13:15 Pulse Ox 94 L 03/11/17 13:15 - Orders/Labs/Meds Orders: Active Orders 24 hr Category Date Time Status Implanted Port Access [RC] ASDIRECTED Care 03/11/17 13:46 Active Urinary Catheter Assessment [RC] ASDIRECTED Care 03/11/17 14:31 Active Urinary Catheter Insertion [Insert Urinary Catheter] [ Care 03/11/17 14:30 Ordered OM.PC] ONETIME CXR [Chest 1V Frontal] [CR] Stat Exams 03/11/17 13:24 Taken Heparin Sodium [Heparin Lock Flush 100 Units/ML] Med 03/11/17 15:54 Active 500 units FLUSH ASDIRECTED PRN Medication Orders Heparin Sodium (Porcine) (Heparin Lock Flush 100 Units/Ml) 500 units FLUSH ASDIRECTED PRN PRN Reason: Keep Vein Open Last Admin: 03/11/17 15:58 Dose: 500 units Labs: Laboratory Tests 03/11/17 03/11/17 03/11/17 Range/Units 13:40 13:40 13:40 WBC 7.3 (4.5-12.0) X10-3/uL RBC 3.91 (3.23-5.20) x10(6)uL Hgb 12.0 (11.5-15.5) g/dL Hct 35.3 (30.0-51.3) % MCV 90.5 (80-96) fL MCH 30.8 (27.7-33.6) pg MCHC 34.0 (32.2-35.4) g/dL RDW 12.5 (11.5-15.5) % Plt Count 193 (125-369) X10(3)uL MPV 9.0 (7.4-10.4) fL Neut % (Auto) 81.3 (46-82) % Lymph % (Auto) 8.0 L (13-37) % [place] % (Auto) 7.7 (4-12) % Eos % (Auto) 1 (1.0-5.0) % Baso % (Auto) 2 (0-2) % Neut # (Auto) 5.9 (1.6-8.3) # Lymph # (Auto) 0.6 (0.6-5.0) # [place] # (Auto) 0.6 (0.0-1.3) # Eos # (Auto) 0.1 (0.0-0.8) # Baso # (Auto) 0.1 (0.0-0.2) # PT 25.2 H (8.7-11.1) INR 2.45 H (0.89-1.13) Sodium 132 L (135-145) mmol/L Potassium 4.1 (3.5-5.3) mmol/L Chloride 104 (100-110) mmol/L Carbon Dioxide 20 L (23-29) mmol/L BUN 32 H D (8-23) mg/dL Creatinine 1.5 H (0.6-1.3) mg/dL Est Cr Clr Drug Dosing 28.47 mL/min Estimated GFR (MDRD) 33 L (>60) BUN/Creatinine Ratio 21.3 H (9-20) Glucose 191 H D (80-116) mg/dL Lactic Acid (0.5-2.2) mmol/L Calcium 8.7 (8.6-10.2) mg/dL Urine Color (YELLOW) Urine Appearance (CLEAR) Urine pH (5.0-6.5) Ur Specific [place] (1.010-1.025) Urine Protein (NEGATIVE) mg/dL Urine Glucose (UA) (NEGATIVE) mg/dL Urine Ketones (NEGATIVE) mg/dL Urine Occult Blood (NEGATIVE) Urine Nitrite (NEGATIVE) Urine Bilirubin (NEGATIVE) Urine Urobilinogen (NEGATIVE) mg/dL Ur Leukocyte Esterase (NEGATIVE) Urine RBC (0) Urine WBC (0) Ur Squamous Epith Cells (NS,R,O) Urine Bacteria (NS) 03/11/17 03/11/17 Range/Units 13:40 14:44 WBC (4.5-12.0) X10-3/uL RBC (3.23-5.20) x10(6)uL Hgb (11.5-15.5) g/dL Hct (30.0-51.3) % MCV (80-96) fL MCH (27.7-33.6) pg MCHC (32.2-35.4) g/dL RDW (11.5-15.5) % Plt Count (125-369) X10(3)uL MPV (7.4-10.4) fL Neut % (Auto) (46-82) % Lymph % (Auto) (13-37) % [place] % (Auto) (4-12) % Eos % (Auto) (1.0-5.0) % Baso % (Auto) (0-2) % Neut # (Auto) (1.6-8.3) # Lymph # (Auto) (0.6-5.0) # [place] # (Auto) (0.0-1.3) # Eos # (Auto) (0.0-0.8) # Baso # (Auto) (0.0-0.2) # PT (8.7-11.1) INR (0.89-1.13) Sodium (135-145) mmol/L Potassium (3.5-5.3) mmol/L Chloride (100-110) mmol/L Carbon Dioxide (23-29) mmol/L BUN (8-23) mg/dL Creatinine (0.6-1.3) mg/dL Est Cr Clr Drug Dosing mL/min Estimated GFR (MDRD) (>60) BUN/Creatinine Ratio (9-20) Glucose (80-116) mg/dL Lactic Acid 2.9 H (0.5-2.2) mmol/L Calcium (8.6-10.2) mg/dL Urine Color Yellow (YELLOW) Urine Appearance Clear (CLEAR) Urine pH 5.0 (5.0-6.5) Ur Specific [place] 1.025 (1.010-1.025) Urine Protein Negative (NEGATIVE) mg/dL Urine Glucose (UA) Normal (NEGATIVE) mg/dL Urine Ketones Negative (NEGATIVE) mg/dL Urine Occult Blood Negative (NEGATIVE) Urine Nitrite Negative (NEGATIVE) Urine Bilirubin Small H (NEGATIVE) Urine Urobilinogen 1 H (NEGATIVE) mg/dL Ur Leukocyte Esterase Negative (NEGATIVE) Urine RBC 0-5 (0) Urine WBC 0-5 (0) Ur Squamous Epith Cells Not seen (NS,R,O) Urine Bacteria Not seen (NS) Meds: Medications Generic Name Dose Route Start Last Admin Trade Name Freq PRN Reason Stop Dose Admin Heparin Sodium (Porcine) 500 units 03/11/17 15:54 03/11/17 15:58 Heparin Lock Flush 100 Units/Ml FLUSH 500 units ASDIRECTED PRN Administration Keep Vein Open Departure - Departure Time of Disposition: 15:28 Disposition: Home, Self-Care 01 Condition: Good Clinical Impression: Vasovagal episode, Dehydration, Tinea of groin - Discharge Information Prescriptions: Clotrimazole [Lotrimin AF 1% Crm] 30 gm TOP BID #1 tube Referrals: Terry Mace MD [Primary Care Provider] - Forms: ED Department Discharge Additional Instructions: Please cont your meds, please increase water intake, please follow up, please come back if your symptom s get worse acutely. please apply lotrimine ointment to the groin area twice daily. - My Orders Last 24 Hours: My Active Orders 03/11/17 13:24 CXR [Chest 1V Frontal] [CR] Stat 03/11/17 13:46 Implanted Port Access [RC] ASDIRECTED 03/11/17 14:30 Urinary Catheter Insertion [Insert Urinary Catheter] [OM.PC] ONETIME 03/11/17 14:31 Urinary Catheter Assessment [RC] ASDIRECTED 03/11/17 15:54 Heparin Sodium [Heparin Lock Flush 100 Units/ML] 500 units FLUSH ASDIRECTED PRN - Assessment/Plan Last 24 Hours: My Active Orders 03/11/17 13:24 CXR [Chest 1V Frontal] [CR] Stat 03/11/17 13:46 Implanted Port Access [RC] ASDIRECTED 03/11/17 14:30 Urinary Catheter Insertion [Insert Urinary Catheter] [OM.PC] ONETIME 03/11/17 14:31 Urinary Catheter Assessment [RC] ASDIRECTED 03/11/17 15:54 Heparin Sodium [Heparin Lock Flush 100 Units/ML] 500 units FLUSH ASDIRECTED PRN
--- NOTE | 2017-03-12 11:39 | CR ---
INDICATION: Short of breath. CHEST: An AP upright portable view of the chest 03/11/2017 was compared with and 03/13/2014, again revealing the heart to be enlarged with previous median sternotomy and mitral valve replacement. Port-A-Cath is again noted in place with its tip at the right atrium. Overlying EKG leads are noted. A definite active infiltrate or effusion was not identified. However, density at the left costophrenic angle makes it difficult to exclude minimal pneumonia there. Poor inspiration emphasizes markings, making it difficult to entirely exclude a minimal or early CHF additionally. Full inspiration PA and lateral views of the chest may be helpful for further evaluation, when clinically possible. MTDD
== END 2017-03-11 15:55 | disposition home or self-care (01) ==
LOC: FB.ED 13:08
DX: R55 Syncope and collapse (principal); E86.0 Dehydration; B35.9 Dermatophytosis, unspecified; Z88.8 Allergy status to other drugs, medicaments and biological substances; Z88.2 Allergy status to sulfonamides; Z91.09 Other allergy status, other than to drugs and biological substances; I10 Essential (primary) hypertension; I48.91 Unspecified atrial fibrillation; Z79.01 Long term (current) use of anticoagulants; Z79.899 Other long term (current) drug therapy
CPT/HCPCS: 71010; 80048; 81001; 83605; 85025; 85610; 96374; 99285; J1642

== ENCOUNTER 2017-05-20 12:44 | Emergency (ER) | payer MEDICARE, OTHER ==
--- NOTE | 2017-05-20 15:57 | EDM.PDOC ---
ED HPI GENERAL MEDICAL PROBLEM - General Chief Complaint: General Stated Complaint: ULTERED MENTAL STATUS Time Seen by Provider: 05/20/17 12:45 Source of Information: Reports: Patient, EMS, Family History Limitations: Reports: Altered Mental Status (dementia, depression) - History of Present Illness INITIAL COMMENTS - FREE TEXT/NARRATIVE: 81 y.o.w.f with a h/o Dementia, came by EMS this morning because she was not talkative today. Pt says she does not know why she is here. No N/V/D or any other acute medical issues. BP 111.78 RR 13 pulse ox 96% Temp 36.7 Onset Date: 05/20/17 Onset Time: 09:00 Duration: Hour(s): Location: Reports: Head Severity: Mild Worsens with: Reports: None Associated Symptoms: Reports: No Other Symptoms - Related Data Allergies Allergy/AdvReac Type Severity Reaction Status Date / Time amiodarone Allergy Unknown Cannot Verified 05/20/17 14:25 Remember lidocaine Allergy Unknown Cannot Verified 05/20/17 14:25 Remember lincomycin HCl Allergy Unknown Cannot Verified 05/20/17 14:25 [From Lincocin] Remember minocycline HCl Allergy Unknown Cannot Verified 05/20/17 14:25 [From Minocin] Remember red (food color) Allergy Unknown Cannot Verified 05/20/17 14:25 Remember Skin Cleanser Combination Allergy Unknown Cannot Verified 05/20/17 14:25 No.4 Remember [From Minocin] Sulfa (Sulfonamide Allergy Unknown Cannot Verified 05/20/17 14:25 Antibiotics) Remember Home Meds: Home Meds Cholecalciferol (Vitamin D3) [Vitamin D3] 1,000 unit PO DAILY@1200 01/23/13 [ History] Isosorbide Mononitrate [Isosorbide Mononitrate ER] 15 mg PO BID 01/23/13 [ History] Latanoprost 1 drop EYEBOTH BEDTIME 01/23/13 [History] Lisinopril 5 mg PO DAILY 01/23/13 [History] Metoprolol Tartrate 50 mg PO DAILY 01/23/13 [History] Cyanocobalamin (Vitamin B-12) [B-12 Compliance] 1,000 mcg IM Q30D 05/04/16 [ History] OLANZapine [ZyPREXA] 5 mg PO DAILY MDD 8AM 05/04/16 [History] OLANZapine [ZyPREXA] 10 mg PO BEDTIME 05/04/16 [History] Acetaminophen 650 mg PO Q4H PRN 07/17/16 [History] Polyethylene Glycol 3350 [MiraLAX] 17 gm PO DAILY 07/17/16 [History] Vilazodone [Viibryd] 40 mg PO BEDTIME 07/17/16 [History] Warfarin [Coumadin] 3.75 mg PO ASDIRECTED MDD TU,W,TH,F,SA,CRISTINA&5PM 07/17/16 [ History] buPROPion [Wellbutrin XL] 300 mg PO DAILY 07/17/16 [History] Ferrous Sulfate 325 mg PO DAILY #30 tablet 07/18/16 [Rx] LORazepam 0.25 mg PO Q8HR 10/19/16 [History] Loperamide [Imodium] 2 mg PO Q12HR 10/19/16 [History] Potassium Chloride 8 meq PO DAILY 10/19/16 [History] Warfarin [Coumadin] 2.5 mg PO DAILY MDD MON 10/19/16 [History] Clotrimazole [Lotrimin AF 1% Crm] 30 gm TOP BID #1 tube 03/11/17 [Rx] QUEtiapine [SEROquel] 25 mg PO ASDIRECTED 05/20/17 [History] Past Medical History HEENT History: Reports: Cataract Cardiovascular History: Reports: Afib, Heart Valve Replacement, Hypertension Other Cardiovascular History: mitral valve Respiratory History: Reports: None Gastrointestinal History: Reports: None 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 unsure. Musculoskeletal History: Reports: Arthritis Other Musculoskeletal History: right knee pain. Hydrocortison shots on right knee Neurological History: Reports: Other (See Below) Other Neuro History: dizzy spells Psychiatric History: Reports: Dementia, Depression Hematologic History: Reports: Anticoagulation Therapy, Blood Transfusion(s) Other Hematologic History: takes vitamin b-12 Immunologic History: Reports: None Oncologic (Cancer) History: Reports: Malignant Melanoma Dermatologic History: Reports: Melanoma Other Dermatologic History: mole taken off on head. - Infectious Disease History Infectious Disease History: Reports: Chicken Pox, Measles - Past Surgical History HEENT Surgical History: Reports: Cataract Surgery Cardiovascular Surgical History: Reports: Valve Replacement, Other (See Below) Other Cardiovascular Surgeries/Procedures: port placement Female Surgical History: Reports: Hysterectomy Dermatological Surgical History: Reports: Skin Biopsy, Other (See Below) Social & Family History - Family History Family Medical History: Noncontributory - Tobacco Use Smoking Status *Q: Never Smoker Used Tobacco, but Quit: No Second Hand Smoke Exposure: No - Caffeine Use Caffeine Use: Reports: Coffee Caffeine Use Comment: PT REPORTS USE "NOT VERY OFTEN" - Alcohol Use Days Per Week of Alcohol Use: 0 - Recreational Drug Use Recreational Drug Use: No Drug Use in Last 12 Months: No ED ROS GENERAL - Review of Systems Review Of Systems: Unable To Obtain (dementia) ED EXAM, GENERAL - Physical Exam Exam: See Below Exam Limited By: Altered Mental Status General Appearance: Alert, WD/WN, No Apparent Distress Eye Exam: Bilateral Eye: Normal Inspection Ears: Normal External Exam Ear Exam: Bilateral Ear: Auricle Normal Nose: Normal Inspection Throat/Mouth: Normal Inspection Head: Atraumatic, Normocephalic Neck: Normal Inspection, Supple, Non-Tender Respiratory/Chest: No Respiratory Distress, Lungs Clear, Normal Breath Sounds Cardiovascular: Normal Peripheral Pulses, Irregularly Irregular GI/Abdominal: Normal Bowel Sounds, Soft, Non-Tender (Female) Exam: Deferred Rectal (Female) Exam: Deferred Back Exam: Normal Inspection, Full Range of Motion Extremities: Normal Inspection, Normal Range of Motion, Non-Tender, No Pedal Edema Neurological: Alert, CN II-XII Intact, No Motor/Sensory Deficits, Confused (h/o dementia), Slow to Respond Psychiatric: Depressed Mood Skin Exam: Warm, Dry, Intact, Normal Color, No Rash Lymphatic: No Adenopathy EKG INTERPRETATION EKG Date: 05/20/17 Time: 13:25 Rhythm: A-Fib Rate (Beats/Min): 76 [place]: Normal P-Wave: Present QRS: Normal ST-T: Normal QT: Normal Comparison: NA - No Prior EKG Course - Vital Signs Text/Narrative:: 81 y.o.w.f with a h/o Dementia, came by EMS this morning because she was not talkative today. Pt says she does not know why she is here. No N/V/D or any other acute medical issues. BP 111.78 RR 13 pulse ox 97% Temp 36.7 PE: WNWD W F with H/o Dementia and depression Labs: CBC nl UA nl INR 2.25 ECG: A fib with Nl VR Impression: H/O Dementia and Depression, H/O a fib Plan: D/C with Last Recorded V/S: Last Vital Signs Temp 36.8 C 05/20/17 16:15 Pulse 82 05/20/17 16:15 Resp 14 05/20/17 16:15 BP 150/89 H 05/20/17 16:15 Pulse Ox 95 05/20/17 16:15 - Orders/Labs/Meds Orders: Active Orders 24 hr Category Date Time Status EKG 12 Lead [EK] Routine Ther 05/20/17 12:58 Ordered Labs: Laboratory Tests 05/20/17 05/20/17 05/20/17 Range/Units 14:00 14:00 14:00 WBC 9.6 (4.5-12.0) X10-3/uL RBC 4.07 (3.23-5.20) x10(6)uL Hgb 13.0 (11.5-15.5) g/dL Hct 36.4 (30.0-51.3) % MCV 89.3 (80-96) fL MCH 31.8 (27.7-33.6) pg MCHC 35.6 H (32.2-35.4) g/dL RDW 13.0 (11.5-15.5) % Plt Count 173 (125-369) X10(3)uL MPV 8.7 (7.4-10.4) fL Neut % (Auto) 82.1 H (46-82) % Lymph % (Auto) 6.3 L (13-37) % [place] % (Auto) 7.2 (4-12) % Eos % (Auto) 2 (1.0-5.0) % Baso % (Auto) 3 H (0-2) % Neut # (Auto) 7.9 (1.6-8.3) # Lymph # (Auto) 0.6 (0.6-5.0) # [place] # (Auto) 0.7 (0.0-1.3) # Eos # (Auto) 0.2 (0.0-0.8) # Baso # (Auto) 0.2 (0.0-0.2) # PT (8.7-11.1) INR (0.89-1.13) Sodium 140 (135-145) mmol/L Potassium 5.0 (3.5-5.3) mmol/L Chloride 104 (100-110) mmol/L Carbon Dioxide 27 (21-32) mmol/L BUN 24 H (7-18) mg/dL Creatinine 1.1 H (0.55-1.02) mg/dL Est Cr Clr Drug Dosing 38.82 mL/min Estimated GFR (MDRD) 48 L (>60) BUN/Creatinine Ratio 21.8 H (9-20) Glucose 107 (80-116) mg/dL Calcium 9.1 (8.6-10.2) mg/dL Total Bilirubin 0.9 (0.1-1.3) mg/dL Direct Bilirubin 0.18 (0.10-0.20) mg/dL AST 22 (5-25) IU/L ALT 20 (12-36) U/L Alkaline Phosphatase 85 (56-112) IU/L Troponin I < 0.017 L (<0.017-0.056) ng/mL Total Protein 6.7 (6.0-8.0) g/dL Albumin 3.3 (3.2-4.6) g/dL Urine Color (YELLOW) Urine Appearance (CLEAR) Urine pH (5.0-6.5) Ur Specific [place] (1.010-1.025) Urine Protein (NEGATIVE) mg/dL Urine Glucose (UA) (NEGATIVE) mg/dL Urine Ketones (NEGATIVE) mg/dL Urine Occult Blood (NEGATIVE) Urine Nitrite (NEGATIVE) Urine Bilirubin (NEGATIVE) Urine Urobilinogen (NEGATIVE) mg/dL Ur Leukocyte Esterase (NEGATIVE) Urine RBC (0) Urine WBC (0) Ur Squamous Epith Cells (NS,R,O) Urine Bacteria (NS) Urine Mucus (NS) 05/20/17 05/20/17 Range/Units 14:00 15:55 WBC (4.5-12.0) X10-3/uL RBC (3.23-5.20) x10(6)uL Hgb (11.5-15.5) g/dL Hct (30.0-51.3) % MCV (80-96) fL MCH (27.7-33.6) pg MCHC (32.2-35.4) g/dL RDW (11.5-15.5) % Plt Count (125-369) X10(3)uL MPV (7.4-10.4) fL Neut % (Auto) (46-82) % Lymph % (Auto) (13-37) % [place] % (Auto) (4-12) % Eos % (Auto) (1.0-5.0) % Baso % (Auto) (0-2) % Neut # (Auto) (1.6-8.3) # Lymph # (Auto) (0.6-5.0) # [place] # (Auto) (0.0-1.3) # Eos # (Auto) (0.0-0.8) # Baso # (Auto) (0.0-0.2) # PT 21.7 H (8.7-11.1) INR 2.12 H (0.89-1.13) Sodium (135-145) mmol/L Potassium (3.5-5.3) mmol/L Chloride (100-110) mmol/L Carbon Dioxide (21-32) mmol/L BUN (7-18) mg/dL Creatinine (0.55-1.02) mg/dL Est Cr Clr Drug Dosing mL/min Estimated GFR (MDRD) (>60) BUN/Creatinine Ratio (9-20) Glucose (80-116) mg/dL Calcium (8.6-10.2) mg/dL Total Bilirubin (0.1-1.3) mg/dL Direct Bilirubin (0.10-0.20) mg/dL AST (5-25) IU/L ALT (12-36) U/L Alkaline Phosphatase (56-112) IU/L Troponin I (<0.017-0.056) ng/mL Total Protein (6.0-8.0) g/dL Albumin (3.2-4.6) g/dL Urine Color Yellow (YELLOW) Urine Appearance Clear (CLEAR) Urine pH 5.0 (5.0-6.5) Ur Specific [place] 1.015 (1.010-1.025) Urine Protein Negative (NEGATIVE) mg/dL Urine Glucose (UA) Normal (NEGATIVE) mg/dL Urine Ketones Negative (NEGATIVE) mg/dL Urine Occult Blood Negative (NEGATIVE) Urine Nitrite Negative (NEGATIVE) Urine Bilirubin Negative (NEGATIVE) Urine Urobilinogen Normal (NEGATIVE) mg/dL Ur Leukocyte Esterase Negative (NEGATIVE) Urine RBC 0-5 (0) Urine WBC 0-5 (0) Ur Squamous Epith Cells Occasional (NS,R,O) Urine Bacteria Few H (NS) Urine Mucus Moderate H (NS) Departure - Departure Time of Disposition: 15:55 Disposition: Home, Self-Care 01 Condition: Good Clinical Impression: Depressed Dementia Qualifiers: Alzheimer's disease onset: unspecified onset Dementia behavioral disturbance: without behavioral disturbance - Discharge Information Instructions: Dementia, [id number] Referrals: Terry Mace MD [Primary Care Provider] - Forms: ED Department Discharge Additional Instructions: Please cont your current meds, F/U, come back if the symptoms get worse acutely - My Orders Last 24 Hours: My Active Orders 05/20/17 12:58 EKG 12 Lead [EK] Routine - Assessment/Plan Last 24 Hours: My Active Orders 05/20/17 12:58 EKG 12 Lead [EK] Routine
[2017-05-20 17:16] VITALS: BP 150/89
== END 2017-05-20 16:15 | disposition home or self-care (01) ==
LOC: FB.ED 12:44
DX: G30.9 Alzheimer's disease, unspecified (principal); F02.80 Dementia in other diseases classified elsewhere, unspecified severity, without behavioral disturbance, psychotic disturbance, mood disturbance, and anxiety; I48.91 Unspecified atrial fibrillation; I10 Essential (primary) hypertension; Z88.8 Allergy status to other drugs, medicaments and biological substances; Z91.09 Other allergy status, other than to drugs and biological substances; Z88.2 Allergy status to sulfonamides; Z79.01 Long term (current) use of anticoagulants; Z79.899 Other long term (current) drug therapy
CPT/HCPCS: 36415; 80048; 80076; 81001; 84484; 85025; 85610; 93005; 93010; 99283; 99285

== ENCOUNTER 2018-01-14 09:16 | Emergency (ER) | payer MEDICARE, OTHER ==
[2013-01-23 22:33] VITALS: BP 153/88
--- NOTE | 2018-01-14 09:54 | EDM.PDOC ---
ED HPI GENERAL MEDICAL PROBLEM - General Stated Complaint: PAIN IN LEFT HIP Time Seen by Provider: 01/14/18 09:25 Source of Information: Reports: Patient, Family, Jail Records History Limitations: Reports: Altered Mental Status - History of Present Illness INITIAL COMMENTS - FREE TEXT/NARRATIVE: c/o found down lives at [facility], uses walker, found on the ground, no witnessed fall, overweight, unable to get up on her L side, told staff her L hip hurt, denies pain here on warfarin for afib, EKG with afib and RBBBB and rate 74 on 05-20-17 EKG with junctional rhythm and RBBB and rate 40 now BP as low as 100/50, at bedside and aware of pt's low HR which she has had before pt slow to respond altho did recognize when he walked in and said " rupal hon", however barely opens mouth when asked to do so, disconjugate gaze has dementia, depression and psychosis also h/o syncope and vasovagal episodes has CABG no specific c/o now last labs 06/06 - Related Data Allergies Allergy/AdvReac Type Severity Reaction Status Date / Time amiodarone Allergy Unknown Cannot Verified 05/20/17 14:25 Remember lidocaine Allergy Unknown Cannot Verified 05/20/17 14:25 Remember lincomycin HCl Allergy Unknown Cannot Verified 05/20/17 14:25 [From Lincocin] Remember minocycline HCl Allergy Unknown Cannot Verified 05/20/17 14:25 [From Minocin] Remember red (food color) Allergy Unknown Cannot Verified 05/20/17 14:25 Remember Skin Cleanser Combination Allergy Unknown Cannot Verified 05/20/17 14:25 No.4 Remember [From Minocin] Sulfa (Sulfonamide Allergy Unknown Cannot Verified 05/20/17 14:25 Antibiotics) Remember Home Meds: Home Meds Cholecalciferol (Vitamin D3) [Vitamin D3] 1,000 unit PO DAILY@1200 01/23/13 [ History] Isosorbide Mononitrate [Isosorbide Mononitrate ER] 15 mg PO BID 01/23/13 [ History] Latanoprost 1 drop EYEBOTH BEDTIME 01/23/13 [History] Lisinopril 5 mg PO DAILY 01/23/13 [History] Metoprolol Tartrate 50 mg PO DAILY 01/23/13 [History] Cyanocobalamin (Vitamin B-12) [B-12 Compliance] 1,000 mcg IM Q30D 05/04/16 [ History] OLANZapine [ZyPREXA] 5 mg PO DAILY MDD 8AM 05/04/16 [History] OLANZapine [ZyPREXA] 10 mg PO BEDTIME 05/04/16 [History] Acetaminophen 650 mg PO Q4H PRN 07/17/16 [History] Polyethylene Glycol 3350 [MiraLAX] 17 gm PO DAILY 07/17/16 [History] Vilazodone [Viibryd] 40 mg PO BEDTIME 07/17/16 [History] Warfarin [Coumadin] 3.75 mg PO ASDIRECTED MDD TU,W,TH,F,SA,CRISTINA&5PM 07/17/16 [ History] buPROPion [Wellbutrin XL] 300 mg PO DAILY 07/17/16 [History] Ferrous Sulfate 325 mg PO DAILY #30 tablet 07/18/16 [Rx] LORazepam 0.25 mg PO Q8HR 10/19/16 [History] Loperamide [Imodium] 2 mg PO Q12HR 10/19/16 [History] Potassium Chloride 8 meq PO DAILY 10/19/16 [History] Warfarin [Coumadin] 2.5 mg PO DAILY MDD MON 10/19/16 [History] Clotrimazole [Lotrimin AF 1% Crm] 30 gm TOP BID #1 tube 03/11/17 [Rx] QUEtiapine [SEROquel] 25 mg PO ASDIRECTED 05/20/17 [History] Past Medical History HEENT History: Reports: Cataract Cardiovascular History: Reports: Afib, Heart Valve Replacement, Hypertension Other Cardiovascular History: mitral valve Respiratory History: Reports: None Gastrointestinal History: Reports: None 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 unsure. Musculoskeletal History: Reports: Arthritis Other Musculoskeletal History: right knee pain. Hydrocortison shots on right knee Neurological History: Reports: Other (See Below) Other Neuro History: dizzy spells Psychiatric History: Reports: Dementia, Depression Hematologic History: Reports: Anticoagulation Therapy, Blood Transfusion(s) Other Hematologic History: takes vitamin b-12 Immunologic History: Reports: None Oncologic (Cancer) History: Reports: Malignant Melanoma Dermatologic History: Reports: Melanoma Other Dermatologic History: mole taken off on head. - Infectious Disease History Infectious Disease History: Reports: Chicken Pox, Measles - Past Surgical History HEENT Surgical History: Reports: Cataract Surgery Cardiovascular Surgical History: Reports: Valve Replacement, Other (See Below) Other Cardiovascular Surgeries/Procedures: port placement Female Surgical History: Reports: Hysterectomy Dermatological Surgical History: Reports: Skin Biopsy, Other (See Below) Social & Family History - Family History Family Medical History: Noncontributory - Caffeine Use Caffeine Use: Reports: Coffee Caffeine Use Comment: PT REPORTS USE "NOT VERY OFTEN" ED ROS GENERAL - Review of Systems Review Of Systems: Unable To Obtain (no c/o per pt, which is not reliable, had been walking with walker yesterday without difficulty as per [facility] staff) Constitutional: Reports: No Symptoms HEENT: Reports: No Symptoms Respiratory: Reports: No Symptoms Cardiovascular: Reports: No Symptoms Endocrine: Reports: No Symptoms GI/Abdominal: Reports: No Symptoms : Reports: No Symptoms Musculoskeletal: Reports: No Symptoms Skin: Reports: No Symptoms Neurological: Reports: No Symptoms Psychiatric: Reports: No Symptoms Hematologic/Lymphatic: Reports: No Symptoms Immunologic: Reports: No Symptoms ED EXAM, GENERAL - Physical Exam Exam: See Below Exam Limited By: Altered Mental Status General Appearance: Alert, Other (obese, no visible head injury, head NT, eyes nonconjugate) Eye Exam: Bilateral Eye: Abnormal EOM Ears: Normal External Exam, Normal [place] Nose: Normal Inspection, Normal Mucosa, No Blood Throat/Mouth: Normal Inspection, Normal Lips, No Airway Compromise Head: Atraumatic, Normocephalic Neck: Normal Inspection, Supple, Non-Tender, Full Range of Motion. No: Lymphadenopathy (R), Lymphadenopathy (L) Respiratory/Chest: No Respiratory Distress, Lungs Clear, Normal Breath Sounds, No Accessory Muscle Use, Chest Non-Tender Cardiovascular: No Edema, No Gallop, No JVD, No Rub, Bradycardia, Systolic Murmur, Other (quiet precordium). No: Gallop/S3, Gallop/S4 GI/Abdominal: Normal Bowel Sounds, Soft, Non-Tender, No Distention, No Mass, Other (obese). No: Guarding, Rigid, Rebound, Tender, Hepatomegaly, Splenomegaly Back Exam: Normal Inspection, Full Range of Motion, NT Extremities: Normal Inspection, Other (1+ edema to knees b/l, dec'd turgor UEs, no tenting) Neurological: CN II-XII Intact, No Motor/Sensory Deficits, Confused, Disoriented , Slow to Respond Psychiatric: Depressed Mood, Flat Affect Skin Exam: Warm, Dry, Intact, Normal Color, No Rash Lymphatic: No Adenopathy Course - Orders/Labs/Meds Orders: Active Orders 24 hr Category Date Time Status Implanted Port Access [RC] DAILY Care 01/14/18 10:20 Active Chest 1V Frontal [CR] Stat Exams 01/14/18 09:46 Ordered Hip Min 2V or 3V w Pelvis Lt [CR] Stat Exams 01/14/18 09:46 Ordered Heparin Sodium [Heparin Lock Flush 100 Units/ML] Med 01/14/18 10:50 Active 300 units FLUSH ASDIRECTED PRN Sodium Chloride 0.9% [Normal Saline] 1,000 ml Med 01/14/18 10:45 Ordered IV ASDIRECTED EKG 12 Lead [EK] Routine Ther 01/14/18 09:46 Ordered Medication Orders Heparin Sodium (Porcine) (Heparin Lock Flush 100 Units/Ml) 300 units FLUSH ASDIRECTED PRN PRN Reason: Keep Vein Open Sodium Chloride (Normal Saline) 1,000 mls @ 999 mls/hr IV ASDIRECTED DEX Last Admin: 01/14/18 10:35 Dose: 999 mls/hr Labs: Laboratory Tests 01/14/18 01/14/18 01/14/18 Range/Units 10:30 10:30 10:30 WBC 7.7 (4.5-12.0) X10-3/uL RBC 3.80 (3.23-5.20) x10(6)uL Hgb 11.9 (11.5-15.5) g/dL Hct 34.8 (30.0-51.3) % MCV 91.5 (80-96) fL MCH 31.2 (27.7-33.6) pg MCHC 34.1 (32.2-35.4) g/dL RDW 13.5 (11.5-15.5) % Plt Count 132 (125-369) X10(3)uL MPV 9.2 (7.4-10.4) fL Add Manual Diff Yes Neutrophils % (Manual) 77 (46-82) % Lymphocytes % (Manual) 12 L (13-37) % Monocytes % (Manual) 8 (4-12) % Eosinophils % (Manual) 2 (0-5) % Basophils % (Manual) 1 (0-2) % Sodium 138 (135-145) mmol/L Potassium 4.7 (3.5-5.3) mmol/L Chloride 105 (100-110) mmol/L Carbon Dioxide 26 (21-32) mmol/L BUN 32 H (7-18) mg/dL Creatinine 1.3 H (0.55-1.02) mg/dL Est Cr Clr Drug Dosing TNP Estimated GFR (MDRD) 39 L (>60) BUN/Creatinine Ratio 24.6 H (9-20) Glucose 96 (80-116) mg/dL Calcium 8.8 (8.6-10.2) mg/dL Total Bilirubin 0.8 (0.1-1.3) mg/dL AST 17 D (5-25) IU/L ALT 12 D (12-36) U/L Alkaline Phosphatase 83 (56-112) IU/L Troponin I < 0.017 L (<0.017-0.056) ng/mL C-Reactive Protein (0.5-0.9) mg/dL Total Protein 7.0 (6.0-8.0) g/dL Albumin 3.2 (3.2-4.6) g/dL Globulin 3.8 g/dL Albumin/Globulin Ratio 0.8 //18 Range/Units 10:30 WBC (4.5-12.0) X10-3/uL RBC (3.23-5.20) x10(6)uL Hgb (11.5-15.5) g/dL Hct (30.0-51.3) % MCV (80-96) fL MCH (27.7-33.6) pg MCHC (32.2-35.4) g/dL RDW (11.5-15.5) % Plt Count (125-369) X10(3)uL MPV (7.4-10.4) fL Add Manual Diff Neutrophils % (Manual) (46-82) % Lymphocytes % (Manual) (13-37) % Monocytes % (Manual) (4-12) % Eosinophils % (Manual) (0-5) % Basophils % (Manual) (0-2) % Sodium (135-145) mmol/L Potassium (3.5-5.3) mmol/L Chloride (100-110) mmol/L Carbon Dioxide (21-32) mmol/L BUN (7-18) mg/dL Creatinine (0.55-1.02) mg/dL Est Cr Clr Drug Dosing Estimated GFR (MDRD) (>60) BUN/Creatinine Ratio (9-20) Glucose (80-116) mg/dL Calcium (8.6-10.2) mg/dL Total Bilirubin (0.1-1.3) mg/dL AST (5-25) IU/L ALT (12-36) U/L Alkaline Phosphatase (56-112) IU/L Troponin I (<0.017-0.056) ng/mL C-Reactive Protein 0.5 (0.5-0.9) mg/dL Total Protein (6.0-8.0) g/dL Albumin (3.2-4.6) g/dL Globulin g/dL Albumin/Globulin Ratio Meds: Medications Generic Name Dose Route Start Last Admin Trade Name Freq PRN Reason Stop Dose Admin Heparin Sodium (Porcine) 300 units 01/14/18 10:50 Heparin Lock Flush 100 Units/Ml FLUSH ASDIRECTED PRN Keep Vein Open Sodium Chloride 1,000 mls @ 999 mls/hr 01/14/18 10:45 01/14/18 10:35 Normal Saline IV 999 mls/hr ASDIRECTED DEX Administration Discontinued Medications Generic Name Dose Route Start Last Admin Trade Name Freq PRN Reason Stop Dose Admin Heparin Sodium (Porcine) Confirm 01/14/18 10:23 01/14/18 10:20 Heparin Lock Flush 100 Units/Ml Administered 01/14/18 10:24 Not Given Dose 500 units .ROUTE .STK-MED ONE Heparin Sodium (Porcine) 500 units 01/14/18 10:20 01/14/18 10:20 Heparin Lock Flush 100 Units/Ml FLUSH 300 units ASDIRECTED PRN Administration Keep Vein Open - Re-Assessments/Exams Free Text/Narrative Re-Assessment/Exam: 01/14/18 11:35 BP remained stable despite HR 30-40s, lowest SBP 100, aware, states that she has been running low at [employer] and that Dr Dixon is aware, does not want a pacemaker u/a 1d ago was neg, reports INR 3.9 1d ago with target of 2.5 to 3.5 and dose warfarin adjusted at INR clinic out of [place] last fell 2w ago, says she cannot get up d/t her knees labs her neg, BUN/creat 32/1.3 today, baseline 19/0.9, says she "drinks a lot of coffee" CxR with very generous heart size with clear angles, L hip XR with minimal DJD and no fx head CT with no bleed as per Dr Santos Departure - Departure Time of Disposition: 11:38 Disposition: Home, Self-Care 01 Condition: Good Clinical Impression: Fall from standing, Bradycardia, Acute on chronic renal insufficiency, Mild dehydration - Discharge Information *PRESCRIPTION DRUG MONITORING PROGRAM REVIEWED*: Not Applicable *COPY OF PRESCRIPTION DRUG MONITORING REPORT IN PATIENT MILAGROS: Not Applicable Additional Instructions: Continue current meds. Increase fluids. Currently on metoprolol XL 50 mg daily for hypertension. Consider decreasing dose to 25 mg daily, as per Dr Dixon. See Dr Dixon in next week. - My Orders Last 24 Hours: My Active Orders 01/14/18 09:46 Chest 1V Frontal [CR] Stat Hip Min 2V or 3V w Pelvis Lt [CR] Stat EKG 12 Lead [EK] Routine 01/14/18 10:20 Implanted Port Access [RC] DAILY 01/14/18 10:45 Sodium Chloride 0.9% [Normal Saline] 1,000 ml IV ASDIRECTED 01/14/18 10:50 Heparin Sodium [Heparin Lock Flush 100 Units/ML] 300 units FLUSH ASDIRECTED PRN - Assessment/Plan Last 24 Hours: My Active Orders 01/14/18 09:46 Chest 1V Frontal [CR] Stat Hip Min 2V or 3V w Pelvis Lt [CR] Stat EKG 12 Lead [EK] Routine 01/14/18 10:20 Implanted Port Access [RC] DAILY 01/14/18 10:45 Sodium Chloride 0.9% [Normal Saline] 1,000 ml IV ASDIRECTED 01/14/18 10:50 Heparin Sodium [Heparin Lock Flush 100 Units/ML] 300 units FLUSH ASDIRECTED PRN
[2018-01-14] MEDS ORDERED: Sodium Chloride 0.9% 1,000 ML IV SCH (10:45)
--- NOTE | 2018-01-14 11:33 | CT ---
INDICATION: Fell, on Warfarin, confusion. CT HEAD WITHOUT CONTRAST: Serial contiguous 2.5 and 5 mm sections were obtained through the brain without contrast, 01/14/2018, and compared with 10/19. Total exam DLP = 950.31 mGy-cm. There is again noted thickening of the lining of the left maxillary antrum, which does appear to be slightly less prominent than on the previous study. Also, there was an air fluid level on the previous examination, which is no longer present. The paranasal sinuses were otherwise unremarkable. Mastoid air cells are well-aerated. No cranial abnormality was identified. Calcification is noted in the vertebral and internal carotid arteries. There is an increase in the low density abnormalities in the white matter, especially right frontal area, compatible with progressive moderate microvascular disease, although other cause of leukoencephalopathy cannot be excluded. No shift of midline structures is seen, compared with the previous study. Ventricles are prominent, compatible with central atrophy. Cortical sulci are minimally prominent, suggesting a mild degree of cortical atrophy. No evidence of a bleeding site or hematoma was identified. No other abnormal areas of density were identified. IMPRESSION: 1. No definite acute intracranial abnormality, although it is difficult to entirely exclude an evolving thrombotic CVA in the right frontal area - correlate clinically. Followup CT of the brain may be of further diagnostic benefit, as may MRI, as felt to be clinically necessary. No bleeding site or hematoma was seen. 2. Progressive white matter changes compatible with progressive moderate microvascular disease. 3. Generalized atrophy, more prominent centrally. 4. Calcifications noted in cranial arteries, compatible with cerebrovascular disease. 5. Thickening of the lining of the left maxillary antrum is less prominent with resolution of a small air fluid level seen on the previous study also noted at the left maxillary antrum. Report was called to Dr. Gaona at 1012 hours on 01/14/2018. [facility]
--- NOTE | 2018-01-14 12:04 | CR ---
INDICATION: Fall, bradycardia. CHEST: An AP upright view of the chest, 01/14/2018, was compared with 2016 and 03/26/2014, again revealing the heart to be enlarged with mitral valve replacement. Port-A-Cath is again noted in place, unchanged in position. Median sternotomy is noted. Overlying EKG leads are noted. Pulmonary vasculature is somewhat prominent in the upper lung rosenberg, raising question of a mild or early CHF. This should be correlated clinically. Interstitial markings suggest fibrosis or possibly mild interstitial lung edema. No definite consolidating pneumonia or effusion was seen, however. Little change in appearance is noted, compared with 2017. IMPRESSION: 1. No definite acute process but difficult to exclude mild or early CHF and minimal interstitial lung edema. 2. ASHD with cardiomegaly and mitral valve replacement post median sternotomy. 3. Interstitial marking, which, as mentioned above, may be on the basis of interstitial lung edema of mild degree or possibly pulmonary fibrosis. MTDD
--- NOTE | 2018-01-14 12:06 | CR ---
INDICATION: Fall, left hip pain. LEFT HIP WITH PELVIS: Five images of the pelvis and left hip were obtained, - no comparisons were available. Mild degenerative changes are noted at the sacroiliac joints, right greater than left. Mild hypertrophic degenerative changes are noted at the right hip joint. Both hip joint spaces were well-maintained. A definite fracture or dislocation was not identified. IMPRESSION: No acute fracture or dislocation. MTDD
[2018-01-14 15:27] VITALS: BP 145/60
== END 2018-01-14 12:00 | disposition home or self-care (01) ==
LOC: FB.ED 09:16
DX: I12.9 Hypertensive chronic kidney disease with stage 1 through stage 4 chronic kidney disease, or unspecified chronic kidney disease (principal); N18.9 Chronic kidney disease, unspecified; N28.9 Disorder of kidney and ureter, unspecified; R00.1 Bradycardia, unspecified; E86.0 Dehydration; M25.552 Pain in left hip; I48.91 Unspecified atrial fibrillation; Z88.2 Allergy status to sulfonamides; Z88.8 Allergy status to other drugs, medicaments and biological substances; Z79.01 Long term (current) use of anticoagulants; Z79.899 Other long term (current) drug therapy; Z95.1 Presence of aortocoronary bypass graft
CPT/HCPCS: 36415; 70450; 71045; 73502; 80053; 84484; 85025; 86140; 93005; 96361; 96374; 96376; 99285; J1642; J7030

== ENCOUNTER 2018-01-22 10:14 | Emergency (ER) | payer MEDICARE ==
--- NOTE | 2018-01-22 11:03 | EDM.PDOC ---
ED HPI GENERAL MEDICAL PROBLEM - General Stated Complaint: FALL, KNEE AND HEAD ABRASION Time Seen by Provider: 01/22/18 10:30 - History of Present Illness INITIAL COMMENTS - FREE TEXT/NARRATIVE: 82-year-old woman who has Parkinson's glaucoma depression very dense dementia atrial fibrillation hypertension psychosis pernicious anemia depression and is on Coumadin for atrial fibrillation experienced a unwitnessed this fall sometime today. She is alert since she's communicates oriented to herself but not place and time. Her is here and he is very assistive supportive and kind and pleasant. He does not live in the memory care center but lives separately. No recent history of illnesses. Her states she has had 100 electrical shock therapies for her depression - Related Data Allergies Allergy/AdvReac Type Severity Reaction Status Date / Time amiodarone Allergy Unknown Cannot Verified 01/22/18 11:23 Remember lidocaine Allergy Unknown Cannot Verified 01/22/18 11:23 Remember lincomycin HCl Allergy Unknown Cannot Verified 01/22/18 11:23 [From Lincocin] Remember minocycline HCl Allergy Unknown Cannot Verified 01/22/18 11:23 [From Minocin] Remember red (food color) Allergy Unknown Cannot Verified 01/22/18 11:23 Remember Skin Cleanser Combination Allergy Unknown Cannot Verified 01/22/18 11:23 No.4 Remember [From Minocin] Sulfa (Sulfonamide Allergy Unknown Cannot Verified 01/22/18 11:23 Antibiotics) Remember Home Meds: Home Meds Cholecalciferol (Vitamin D3) [Vitamin D3] 1,000 unit PO DAILY@1200 01/23/13 [ History] Isosorbide Mononitrate [Isosorbide Mononitrate ER] 15 mg PO BID 01/23/13 [ History] Latanoprost 1 drop EYEBOTH BEDTIME 01/23/13 [History] Metoprolol Tartrate 25 mg PO DAILY 01/23/13 [History] Cyanocobalamin (Vitamin B-12) [B-12 Compliance] 1,000 mcg IM Q30D 05/04/16 [ History] OLANZapine [ZyPREXA] 15 mg PO BEDTIME 05/04/16 [History] Acetaminophen 650 mg PO Q4H PRN 07/17/16 [History] Polyethylene Glycol 3350 [MiraLAX] 17 gm PO DAILY 07/17/16 [History] Vilazodone [Viibryd] 20 mg PO BEDTIME 07/17/16 [History] Warfarin [Coumadin] 5 mg PO MOFR 07/17/16 [History] buPROPion [Wellbutrin XL] 300 mg PO DAILY 07/17/16 [History] Ferrous Sulfate 325 mg PO DAILY #30 tablet 07/18/16 [Rx] LORazepam 0.25 mg PO Q8HR 10/19/16 [History] Loperamide [Imodium] 2 mg PO Q12HR PRN 10/19/16 [History] Potassium Chloride 16 meq PO DAILY 10/19/16 [History] Warfarin [Coumadin] 2.5 mg PO SUTUWETHSA MDD MON 10/19/16 [History] Clotrimazole [Lotrimin AF 1% Crm] 30 gm TOP BID #1 tube 03/11/17 [Rx] QUEtiapine [SEROquel] 12.5 mg PO ASDIRECTED PRN 05/20/17 [History] Lisinopril [Prinivil] 5 mg PO DAILY 01/14/18 [History] Magnesium Hydroxide [Milk of Magnesia] 15 ml PO DAILY PRN 01/22/18 [History] Polyvinyl Alcohol/Povidone [Refresh Eye Drops] 1 drop .XX BID 01/22/18 [History] guaiFENesin [Robitussin] 10 ml PO DAILY 01/22/18 [History] Past Medical History HEENT History: Reports: Cataract Cardiovascular History: Reports: Afib, Heart Valve Replacement, Hypertension Other Cardiovascular History: mitral valve Respiratory History: Reports: None Gastrointestinal History: Reports: None 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 unsure. Musculoskeletal History: Reports: Arthritis Other Musculoskeletal History: right knee pain. Hydrocortison shots on right knee Neurological History: Reports: Other (See Below) Other Neuro History: dizzy spells Psychiatric History: Reports: Dementia, Depression Hematologic History: Reports: Anticoagulation Therapy, Blood Transfusion(s) Other Hematologic History: takes vitamin b-12 Immunologic History: Reports: None Oncologic (Cancer) History: Reports: Malignant Melanoma Dermatologic History: Reports: Melanoma Other Dermatologic History: mole taken off on head. - Infectious Disease History Infectious Disease History: Reports: Chicken Pox, Measles - Past Surgical History HEENT Surgical History: Reports: Cataract Surgery Cardiovascular Surgical History: Reports: Valve Replacement, Other (See Below) Other Cardiovascular Surgeries/Procedures: port placement Female Surgical History: Reports: Hysterectomy Dermatological Surgical History: Reports: Skin Biopsy, Other (See Below) Social & Family History - Family History Family Medical History: Noncontributory - Caffeine Use Caffeine Use: Reports: Coffee Caffeine Use Comment: PT REPORTS USE "NOT VERY OFTEN" ED ROS GENERAL - Review of Systems Review Of Systems: See Below ED EXAM, GENERAL - Physical Exam Exam: See Below Free Text/Narrative:: Overweight woman dense dementia is lying on her back has a wary glare anxious and somewhat vacuous gaze with a engaged in any conversation with her. She does not have expressive or receptive aphasia. She understands and responds slowly but appropriately to my requests and inquiries. Her conversation is limited and slow to any questions or requests Exam Limited By: Other (Dense dementia) Eye Exam: Bilateral Eye: Other (Small 2 mm pupils respond to light EOMs normal) Ears: Normal External Exam, Normal Canal, Normal TMs, Hearing Loss Ear Exam: Bilateral Ear: Auricle Normal, Canal Normal, TM normal Nose: Other (Vertical nasal abrasion without crepitance or deformity of her nose.) Throat/Mouth: Normal Inspection, Normal Lips, Normal Teeth, Normal Gums, Normal Oropharynx, Normal Voice, No Airway Compromise Head: Other (Vertical correction circular 5 cm abrasion slightly left of midline frontal dermis without ecchymosis or hematoma or cough of bones.) Neck: Normal Inspection, Supple, Non-Tender, Other (C-collar was placed on arrival) Respiratory/Chest: No Respiratory Distress, Lungs Clear, Normal Breath Sounds, No Accessory Muscle Use, Chest Non-Tender Cardiovascular: Normal Peripheral Pulses, No Gallop (1+ edema), No JVD, No Murmur, No Rub, Irregularly Irregular, Other Peripheral Pulses: 1+: Carotid (L), Carotid (R), Radial (R), Femoral (L), Dorsalis Pedis (L), Dorsalis Pedis (R) GI/Abdominal: Normal Bowel Sounds, Soft, Non-Tender, No Distention, No Abnormal Bruit, No Mass (Female) Exam: Deferred Rectal (Female) Exam: Deferred Neurological: CN II-XII Intact, Slow to Respond, Memory Loss Remote Events, Memory Loss Recent Events, Other (Oriented 1 ,Abnormal cognition gait not tested) Psychiatric: Flat Affect Skin Exam: Warm, Dry, Intact, Other (Reason frontal region and linear vertical nasal bridge patient) Course - Vital Signs Last Recorded V/S: Last Vital Signs Temp 36.4 C 01/22/18 10:17 Pulse 51 L 01/22/18 12:00 Resp 16 01/22/18 12:00 BP 166/57 H 01/22/18 12:00 Pulse Ox 100 01/22/18 12:00 - Orders/Labs/Meds Orders: Active Orders 24 hr Category Date Time Status Cervical Spine wo Cont [CT] Stat Exams 01/22/18 11:14 Taken Head wo Cont [CT] Stat Exams 01/22/18 10:51 Taken Sodium Chloride 0.9% [Normal Saline] 1,000 ml Med 01/22/18 12:00 Active IV ASDIRECTED EKG 12 Lead [EK] Routine Ther 01/22/18 11:16 Ordered Medication Orders Sodium Chloride (Normal Saline) 1,000 mls @ 150 mls/hr IV ASDIRECTED DEX Last Infusion: 01/22/18 12:18 Dose: 150 mls/hr Infusion: 01/22/18 11:56 Dose: 999 mls/hr Admin: 01/22/18 11:56 Dose: 150 mls/hr Labs: Laboratory Tests 01/22/18 01/22/18 01/22/18 Range/Units 11:42 11:42 11:42 WBC 10.2 (4.5-12.0) X10-3/uL RBC 3.99 (3.23-5.20) x10(6)uL Hgb 12.4 (11.5-15.5) g/dL Hct 36.4 (30.0-51.3) % MCV 91.3 (80-96) fL MCH 31.1 (27.7-33.6) pg MCHC 34.0 (32.2-35.4) g/dL RDW 13.1 (11.5-15.5) % Plt Count 163 (125-369) X10(3)uL MPV 8.8 (7.4-10.4) fL Add Manual Diff Yes Neutrophils % (Manual) 87 H (46-82) % Lymphocytes % (Manual) 9 L (13-37) % Monocytes % (Manual) 4 (4-12) % Sodium 140 (135-145) mmol/L Potassium 4.8 (3.5-5.3) mmol/L Chloride 105 (100-110) mmol/L Carbon Dioxide 25 (21-32) mmol/L BUN 32 H (7-18) mg/dL Creatinine 1.7 H (0.55-1.02) mg/dL Est Cr Clr Drug Dosing TNP Estimated GFR (MDRD) 29 L (>60) BUN/Creatinine Ratio 18.8 (9-20) Glucose 103 (80-116) mg/dL Calcium 9.2 (8.6-10.2) mg/dL Total Bilirubin 1.1 (0.1-1.3) mg/dL AST 32 H D (5-25) IU/L ALT 23 D (12-36) U/L Alkaline Phosphatase 84 (56-112) IU/L Creatine Kinase (60-160) IU/L Troponin I < 0.017 L (<0.017-0.056) ng/mL Total Protein 7.4 (6.0-8.0) g/dL Albumin 3.5 (3.2-4.6) g/dL Globulin 3.9 g/dL Albumin/Globulin Ratio 0.9 01/22/18 Range/Units 11:42 WBC (4.5-12.0) X10-3/uL RBC (3.23-5.20) x10(6)uL Hgb (11.5-15.5) g/dL Hct (30.0-51.3) % MCV (80-96) fL MCH (27.7-33.6) pg MCHC (32.2-35.4) g/dL RDW (11.5-15.5) % Plt Count (125-369) X10(3)uL MPV (7.4-10.4) fL Add Manual Diff Neutrophils % (Manual) (46-82) % Lymphocytes % (Manual) (13-37) % Monocytes % (Manual) (4-12) % Sodium (135-145) mmol/L Potassium (3.5-5.3) mmol/L Chloride (100-110) mmol/L Carbon Dioxide (21-32) mmol/L BUN (7-18) mg/dL Creatinine (0.55-1.02) mg/dL Est Cr Clr Drug Dosing Estimated GFR (MDRD) (>60) BUN/Creatinine Ratio (9-20) Glucose (80-116) mg/dL Calcium (8.6-10.2) mg/dL Total Bilirubin (0.1-1.3) mg/dL AST (5-25) IU/L ALT (12-36) U/L Alkaline Phosphatase (56-112) IU/L Creatine Kinase 637 H* (60-160) IU/L Troponin I (<0.017-0.056) ng/mL Total Protein (6.0-8.0) g/dL Albumin (3.2-4.6) g/dL Globulin g/dL Albumin/Globulin Ratio Meds: Medications Generic Name Dose Route Start Last Admin Trade Name Freq PRN Reason Stop Dose Admin Sodium Chloride 1,000 mls @ 150 mls/hr 01/22/18 12:00 01/22/18 12:18 Normal Saline IV 150 mls/hr ASDIRECTED DEX Infusion Departure - Departure Time of Disposition: 12:55 (Patient has very dense dementia secondary to her "100 shock therapies "for her depression has a concussion, abrasions to face, right knee abrasion on her artery disease, atrial fibrillation, obesity, TIAs, transferred back to the memory care assisted living facility) Disposition: DC/Tfer to Inpt Rehab Fac 62 Condition: Fair Clinical Impression: Dementia Qualifiers: Alzheimer's disease onset: other onset Dementia behavioral disturbance: with behavioral disturbance Concussion Qualifiers: Encounter type: initial encounter Loss of consciousness presence/duration: without LOC Qualified Code(s): S06.0X0A - Concussion without loss of consciousness, initial encounter Abrasion of face Qualifiers: Encounter type: initial encounter Qualified Code(s): S00.81XA - Abrasion of other part of head, initial encounter Abrasion of knee, right Qualifiers: Encounter type: initial encounter Qualified Code(s): S80.211A - Abrasion, right knee, initial encounter - Discharge Information *PRESCRIPTION DRUG MONITORING PROGRAM REVIEWED*: Not Applicable *COPY OF PRESCRIPTION DRUG MONITORING REPORT IN PATIENT MILAGROS: Not Applicable Referrals: Terry Mace MD [Primary Care Provider] - Additional Instructions: Return to skilled care facility change in orders use bacitracin to face abrasions daily keep clean and wash follow-up with her doctor as needed in the next 7-14 days - My Orders Last 24 Hours: My Active Orders 01/22/18 10:51 Head wo Cont [CT] Stat 01/22/18 11:14 Cervical Spine wo Cont [CT] Stat 01/22/18 11:16 EKG 12 Lead [EK] Routine 01/22/18 12:00 Sodium Chloride 0.9% [Normal Saline] 1,000 ml IV ASDIRECTED - Assessment/Plan Last 24 Hours: My Active Orders 01/22/18 10:51 Head wo Cont [CT] Stat 01/22/18 11:14 Cervical Spine wo Cont [CT] Stat 01/22/18 11:16 EKG 12 Lead [EK] Routine 01/22/18 12:00 Sodium Chloride 0.9% [Normal Saline] 1,000 ml IV ASDIRECTED
[2018-01-22] MEDS ORDERED: Sodium Chloride 0.9% 1,000 ML IV SCH (12:00)
[2018-01-22 14:02] VITALS: BP 168/81
== END 2018-01-22 13:40 ==
LOC: FB.ED 10:14
DX: S06.0X0A Concussion without loss of consciousness, initial encounter (principal); S00.81XA Abrasion of other part of head, initial encounter; S80.211A Abrasion, right knee, initial encounter; G30.9 Alzheimer's disease, unspecified; F02.81 Dementia in other diseases classified elsewhere, unspecified severity, with behavioral disturbance; I10 Essential (primary) hypertension; F32.9 Major depressive disorder, single episode, unspecified; I48.91 Unspecified atrial fibrillation; Z79.01 Long term (current) use of anticoagulants; Z88.8 Allergy status to other drugs, medicaments and biological substances; W19.XXXA Unspecified fall, initial encounter
CPT/HCPCS: 36415; 70450; 72125; 80053; 82550; 84484; 85025; 85610; 93005; 96361; 96374; 99284; J1642; J7030

== ENCOUNTER 2021-01-26 10:16 | Inpatient (IN) | payer MEDICARE ==
--- NOTE | 2021-01-26 10:24 | EDM.PDOC ---
ED HPI GENERAL MEDICAL PROBLEM - General Chief Complaint: Head Injury Stated Complaint: FALL Time Seen by Provider: 01/26/21 10:18 Source of Information: Reports: EMS, Old Records. Denies: Patient History Limitations: Reports: Other (patient in apparent coma, not able to offer hx) - History of Present Illness INITIAL COMMENTS - FREE TEXT/NARRATIVE: 85 yo female resident of [facility] who is a DNR had an unwitnessed fall today and was found with R sided facial swelling. EMS was called when she was found unresponsive. Is apparently only on ASA for an anticoagulant. Is in the memory care unit for dementia. Has afib and was tachy for EMS. Onset: Today, Sudden Onset Date: 01/26/21 Duration: Minutes: (unsure of time of fall, may have been around 8 AM), Getting Worse Location: Reports: Head, Face Quality: Reports: Other (unsure) Severity: Severe Improves with: Reports: None Worsens with: Reports: Other (time since injury) Context: Reports: Trauma Associated Symptoms: Reports: No Other Symptoms Treatments POWDER LOADER: Reports: Other (see below) (none) - Related Data Allergies Allergy/AdvReac Type Severity Reaction Status Date / Time amiodarone Allergy Unknown Cannot Verified 01/22/18 11:23 Remember lidocaine Allergy Unknown Cannot Verified 01/22/18 11:23 Remember lincomycin HCl Allergy Unknown Cannot Verified 01/22/18 11:23 [From Lincocin] Remember minocycline HCl Allergy Unknown Cannot Verified 01/22/18 11:23 [From Minocin] Remember red (food color) Allergy Unknown Cannot Verified 01/22/18 11:23 Remember Skin Cleanser Combination Allergy Unknown Cannot Verified 01/22/18 11:23 No.4 Remember [From Minocin] Sulfa (Sulfonamide Allergy Unknown Cannot Verified 01/22/18 11:23 Antibiotics) Remember Home Meds: Home Meds Cholecalciferol (Vitamin D3) [Vitamin D3] 1,000 unit PO DAILY@1200 01/23/13 [History] Isosorbide Mononitrate [Isosorbide Mononitrate ER] 15 mg PO BID 01/23/13 [History] Latanoprost 1 drop EYEBOTH BEDTIME 01/23/13 [History] Metoprolol Tartrate 25 mg PO DAILY 01/23/13 [History] Cyanocobalamin (Vitamin B-12) [B-12 Compliance] 1,000 mcg IM Q30D 05/04/16 [History] OLANZapine [ZyPREXA] 15 mg PO BEDTIME 05/04/16 [History] Acetaminophen 650 mg PO Q4H PRN 07/17/16 [History] Vilazodone [Viibryd] 20 mg PO BEDTIME 07/17/16 [History] Warfarin [Coumadin] 5 mg PO MOFR 07/17/16 [History] buPROPion [Wellbutrin XL] 300 mg PO DAILY 07/17/16 [History] polyethylene glycoL 3350 [MiraLAX] 17 gm PO DAILY 07/17/16 [History] Ferrous Sulfate 325 mg PO DAILY #30 tablet 07/18/16 [Rx] LORazepam 0.25 mg PO Q8HR 10/19/16 [History] Loperamide [Imodium] 2 mg PO Q12HR PRN 10/19/16 [History] Potassium Chloride 16 meq PO DAILY 10/19/16 [History] Warfarin [Coumadin] 2.5 mg PO SUTUWETHSA MDD MON 10/19/16 [History] Clotrimazole [Lotrimin AF 1% Crm] 30 gm TOP BID #1 tube 03/11/17 [Rx] QUEtiapine [SEROquel] 12.5 mg PO ASDIRECTED PRN 05/20/17 [History] lisinopriL [Prinivil] 5 mg PO DAILY 01/14/18 [History] Magnesium Hydroxide [Milk of Magnesia] 15 ml PO DAILY PRN 01/22/18 [History] Polyvinyl Alcohol/Povidone [Refresh Eye Drops] 1 drop .XX BID 01/22/18 [History] guaiFENesin [Robitussin] 10 ml PO DAILY 01/22/18 [History] Past Medical History HEENT History: Reports: Cataract Cardiovascular History: Reports: Afib, Heart Valve Replacement, Hypertension Other Cardiovascular History: mitral valve Respiratory History: Reports: None Gastrointestinal History: Reports: None SUSHI CHEF History: Reports: , Other (See Below) Other SUSHI CHEF History: partial hysterectomy? unsure. Musculoskeletal History: Reports: Arthritis Other Musculoskeletal History: right knee pain. Hydrocortison shots on right knee Neurological History: Reports: Other (See Below) Other Neuro History: dizzy spells Psychiatric History: Reports: Dementia, Depression Hematologic History: Reports: Anticoagulation Therapy, Blood Transfusion(s) Other Hematologic History: takes vitamin b-12 Immunologic History: Reports: None Oncologic (Cancer) History: Reports: Malignant Melanoma Dermatologic History: Reports: Melanoma Other Dermatologic History: mole taken off on head. - Infectious Disease History Infectious Disease History: Reports: Chicken Pox, Measles - Past Surgical History HEENT Surgical History: Reports: Cataract Surgery Cardiovascular Surgical History: Reports: Valve Replacement, Other (See Below) Other Cardiovascular Surgeries/Procedures: port placement Female Surgical History: Reports: Hysterectomy Dermatological Surgical History: Reports: Skin Biopsy, Other (See Below) Social & Family History - Family History Family Medical History: No Pertinent Family History - Caffeine Use Caffeine Use: Reports: Coffee Caffeine Use Comment: PT REPORTS USE "NOT VERY OFTEN" ED ROS GENERAL - Review of Systems Review Of Systems: Unable To Obtain (due to comatose state) Reason Not Obtained: patient is nonverbal Constitutional: Reports: No Symptoms. Denies: Fever ED EXAM, HEAD INJURY - Physical Exam Exam: See Below Exam Limited By: No Limitations General Appearance: WD/WN, Severe Distress, Obese Head: Facial Swelling (R cheek and R forehead swelling, ecchymosis). No: Atraumatic Nexus Criteria: Altered Level of Consciousness. No: Evidence of Intoxication Eyes: Left Eye: PERRL (R pupil dilated and unreactive) Ears: Normal External Exam, Normal Canal, Normal TMs Nose: Normal Inspection, No Blood Throat/Mouth: Normal Inspection, Other (sonorous breathing). No: Normal Voice Respiratory: Lungs Clear, Normal Breath Sounds, No Accessory Muscle Use Cardiovascular: Tachycardia, Irregularly Irregular GI/Abdominal Exam: Soft Extremities: Normal Inspection Neurologic: Other (comatose). No: No Motor/Sensory Deficits, Alert Skin: Normal Color, Warm/Dry - Achille Coma Score Best Eye Response (Achille): (1) No Response Best Verbal Response (Adriana): (1) No Verbal Response Best Motor Response (Achille): (1) No Motor Response Achille Total: 3 Course - Vital Signs Text/Narrative:: Son and notified @ 1045h, the sql server developer is here. Dr. Nova called @ 1220h Last Recorded V/S: Last Vital Signs Temp 36.2 C 01/26/21 10:24 Pulse 103 H 01/26/21 10:24 Resp 15 01/26/21 10:24 BP 172/125 H 01/26/21 10:24 Pulse Ox 98 01/26/21 10:24 - Orders/Labs/Meds Orders: Active Orders 24 hr Category Date Time Status Cervical Spine wo Cont [CT] Stat Exams 01/26/21 10:23 Taken Head wo Cont [CT] Stat Exams 01/26/21 10:17 Ordered - Radiology Interpretation Free Text/Narrative:: Head and neck CT scans-large subdural R with midline shift CT Results Date: 01/26/21 CT Results Time: 10:42 Departure - Departure Time of Disposition: 12:45 Disposition: Admitted As Inpatient 68 Condition: Critical Clinical Impression: Subdural hematoma, DNR (do not resuscitate) Coma Qualifiers: Coma depth: Adriana coma 3-8 Coma timing: at arrival to emergency department Qualified Code(s): R40.2432 - Achille coma scale score 3-8, at arrival to emergency department - Discharge Information *PRESCRIPTION DRUG MONITORING PROGRAM REVIEWED*: Not Applicable *COPY OF PRESCRIPTION DRUG MONITORING REPORT IN PATIENT MILAGROS: Not Applicable Referrals: PCP,None [Primary Care Provider] - Forms: ED Department Discharge Sepsis Event Note (ED) - Focused Exam Vital Signs: Vital Signs Temp Pulse Resp BP Pulse Ox 01/26/21 10:24 36.2 C 103 H 15 172/125 H 98 - My Orders Last 24 Hours: My Active Orders 01/26/21 10:17 Head wo Cont [CT] Stat 01/26/21 10:23 Cervical Spine wo Cont [CT] Stat - Assessment/Plan Last 24 Hours: My Active Orders 01/26/21 10:17 Head wo Cont [CT] Stat 01/26/21 10:23 Cervical Spine wo Cont [CT] Stat
[2021-01-26 11:59] VITALS: BP 172/125; PULSE 103
[2021-01-26] MEDS ORDERED: Morphine Oral Concentrate 20 MG/ML 30 ML Bottle SL PRN (13:24)
--- NOTE | 2021-01-26 13:35 | PCM.HP.2 ---
H&P History of Present Illness - General Date of Service: 01/26/21 Admit Problem/Dx: Admission Diagnosis/Problem Admission Diagnosis/Problem Subdural hematoma Source of Information: Family, Old Records History Limitations: Reports: Altered Mental Status - History of Present Illness Initial Comments - Free Text/Narative: This is an 85-year-old female patient from [facility]. Had unwitnessed fall. She was noted to have swelling on the right side of her face and she was unconscious. She was brought to the ER had a CT scan that showed a very large's right-sided subdural hematoma with a left shift of almost to the center. The family elected to keep her comfortable and not pursue any surgical management. Patient is obtunded and [place] Coma Scale less than 4. - Related Data Allergies/Adverse Reactions: Allergies Allergy/AdvReac Type Severity Reaction Status Date / Time amiodarone Allergy Unknown Cannot Verified 01/22/18 11:23 Remember lidocaine Allergy Unknown Cannot Verified 01/22/18 11:23 Remember lincomycin HCl Allergy Unknown Cannot Verified 01/22/18 11:23 [From Lincocin] Remember minocycline HCl Allergy Unknown Cannot Verified 01/22/18 11:23 [From Minocin] Remember red (food color) Allergy Unknown Cannot Verified 01/22/18 11:23 Remember Skin Cleanser Combination Allergy Unknown Cannot Verified 01/22/18 11:23 No.4 Remember [From Minocin] Sulfa (Sulfonamide Allergy Unknown Cannot Verified 01/22/18 11:23 Antibiotics) Remember Home Medications: Home Meds Cholecalciferol (Vitamin D3) [Vitamin D3] 1,000 unit PO DAILY@1200 01/23/13 [History] Isosorbide Mononitrate [Isosorbide Mononitrate ER] 15 mg PO BID 01/23/13 [Hist ory] Latanoprost 1 drop EYEBOTH BEDTIME 01/23/13 [History] Metoprolol Tartrate 25 mg PO DAILY 01/23/13 [History] Cyanocobalamin (Vitamin B-12) [B-12 Compliance] 1,000 mcg IM Q30D 05/04/16 [History] OLANZapine [ZyPREXA] 15 mg PO BEDTIME 05/04/16 [History] Acetaminophen 650 mg PO Q4H PRN 07/17/16 [History] Vilazodone [Viibryd] 20 mg PO BEDTIME 07/17/16 [History] Warfarin [Coumadin] 5 mg PO MOFR 07/17/16 [History] buPROPion [Wellbutrin XL] 300 mg PO DAILY 07/17/16 [History] polyethylene glycoL 3350 [MiraLAX] 17 gm PO DAILY 07/17/16 [History] Ferrous Sulfate 325 mg PO DAILY #30 tablet 07/18/16 [Rx] LORazepam 0.25 mg PO Q8HR 10/19/16 [History] Loperamide [Imodium] 2 mg PO Q12HR PRN 10/19/16 [History] Potassium Chloride 16 meq PO DAILY 10/19/16 [History] Warfarin [Coumadin] 2.5 mg PO SUTUWETHSA MDD MON 10/19/16 [History] Clotrimazole [Lotrimin AF 1% Crm] 30 gm TOP BID #1 tube 03/11/17 [Rx] QUEtiapine [SEROquel] 12.5 mg PO ASDIRECTED PRN 05/20/17 [History] lisinopriL [Prinivil] 5 mg PO DAILY 01/14/18 [History] Magnesium Hydroxide [Milk of Magnesia] 15 ml PO DAILY PRN 01/22/18 [History] Polyvinyl Alcohol/Povidone [Refresh Eye Drops] 1 drop .XX BID 01/22/18 [History] guaiFENesin [Robitussin] 10 ml PO DAILY 01/22/18 [History] Past Medical History HEENT History: Reports: Cataract Cardiovascular History: Reports: Afib, Heart Valve Replacement, Hypertension Other Cardiovascular History: mitral valve Respiratory History: Reports: None Gastrointestinal History: Reports: None HOSPITAL MONITOR History: Reports: , Other (See Below) Other OB/BYN History: partial hysterectomy? unsure. Musculoskeletal History: Reports: Arthritis Other Musculoskeletal History: right knee pain. Hydrocortison shots on right knee Neurological History: Reports: Other (See Below) Other Neuro History: dizzy spells Psychiatric History: Reports: Dementia, Depression Hematologic History: Reports: Anticoagulation Therapy, Blood Transfusion(s) Other Hematologic History: takes vitamin b-12 Immunologic History: Reports: None Oncologic (Cancer) History: Reports: Malignant Melanoma Dermatologic History: Reports: Melanoma Other Dermatologic History: mole taken off on head. - Infectious Disease History Infectious Disease History: Reports: Chicken Pox, Measles - Past Surgical History HEENT Surgical History: Reports: Cataract Surgery Cardiovascular Surgical History: Reports: Valve Replacement, Other (See Below) Other Cardiovascular Surgeries/Procedures: port placement Female Surgical History: Reports: Hysterectomy Neurological Surgical History: Reports: None Musculoskeletal Surgical History: Reports: None, Arthroscopic Procedure Dermatological Surgical History: Reports: Skin Biopsy, Other (See Below) Social & Family History - Family History Family Medical History: No Pertinent Family History - Tobacco Use Tobacco Use Status *Q: Never Tobacco User Second Hand Smoke Exposure: No - Caffeine Use Caffeine Use: Reports: None Caffeine Use Comment: PT REPORTS USE "NOT VERY OFTEN" - Recreational Drug Use Recreational Drug Use: No H&P Review of Systems - Review of Systems: Review Of Systems: Unable To Obtain Reason Not Obtained: The patient is in a coma/obtunded Exam - Exam Exam: See Below - Vital Signs Vital Signs: Last Vital Signs Temp 97.2 F 01/26/21 10:24 Pulse 103 H 01/26/21 10:24 Resp 15 01/26/21 10:24 BP 172/125 H 01/26/21 10:24 Pulse Ox 98 01/26/21 10:24 - Exam General: Obtunded HEENT: Other (Pupils fixed and dilated, no hemotympanum, bruising of the face.) Neck: Supple, Trachea Midline Lungs: Clear to Auscultation, Normal Respiratory Effort Cardiovascular: Regular Rate, Regular Rhythm GI/Abdominal Exam: Normal Bowel Sounds, No Distention, No Mass Back Exam: Normal Inspection Extremities: No Pedal Edema Neuro Extensive - Mental Status: Other (Patient obtunded chains Stewart breathing. Does not respond to painful stimuli. Does not respond to voice. Does not open eyes to voice.). No: Alert, Oriented x3, Normal Mood/Affect, Normal Cognition, Memory Intact, Memory Loss-Recent Events, Nl Response to Commands, Opens Eyes to Commands, Slow Response to Commands, Extensor Response to Pain, Withdraws to Pain Psychiatric: No: Alert, Normal Affect, Normal Mood Sepsis Event Note - Focused Exam Vital Signs: Vital Signs Temp Pulse Resp BP Pulse Ox 01/26/21 10:24 97.2 F 103 H 15 172/125 H 98 - Problem List (1) Palliative care status SNOMED Code(s): 946791295 ICD Code: Z51.5 - ENCOUNTER FOR PALLIATIVE CARE Status: Acute Current Visit: Yes (2) Coma SNOMED Code(s): 454300419 ICD Code: R40.20 - UNSPECIFIED COMA Status: Acute Current Visit: Yes Qualifiers: Coma depth: [place] coma 3-8 Coma timing: at arrival to emergency department Qualified Code(s): R40.2432 - [place] coma scale score 3-8, at arrival to emergency department (3) DNR (do not resuscitate) Status: Acute Current Visit: Yes (4) Subdural hematoma SNOMED Code(s): 634425065 ICD Code: S06.5X9A - TRAUM SUBDR HEM W LOC OF UNSP DURATION, INIT Status: Acute Current Visit: Yes (5) Abrasion of face SNOMED Code(s): 822936600 ICD Code: S00.81XA - ABRASION OF OTHER PART OF HEAD, INITIAL ENCOUNTER Status: Acute Current Visit: No Problem List Initiated/Reviewed/Updated: Yes Orders Last 24hrs: Active Orders 24 hr Category Date Time Status Patient Status [ADT] Routine ADT 01/26/21 13:22 Ordered Bedrest Bedside Commode [RC] ASDIRECTED Care 01/26/21 13:22 Ordered Oxygen Therapy [RC] PRN Care 01/26/21 13:22 Ordered VTE/DVT Education [RC] Per Unit Routine Care 01/26/21 13:22 Ordered Vital Signs [RC] QSHIFT Care 01/26/21 13:22 Ordered Nothing per Oral Now Diet [DIET] Diet 01/26/21 Dinner Ordered Cervical Spine wo Cont [CT] Stat Exams 01/26/21 10:23 Taken Head wo Cont [CT] Stat Exams 01/26/21 10:17 Ordered Morphine [Morphine 20 MG/ML Soln] Med 01/26/21 13:24 Ordered 10 mg SL Q4H PRN Resuscitation Status Routine Resus Stat 01/26/21 13:22 Ordered Medication Orders Morphine Sulfate (Morphine Oral Concentrate 20 Mg/Ml 30 Ml Bottle) 10 mg SL Q4H PRN PRN Reason: Pain Assessment/Plan Comment:: 1. The family elected not to do any surgical procedure referral. So neurosurgery was not called for that reason. Prognosis is poor 2. Patient cannot go home this condition so she'll be admitted for comfort cares. 3. Hold medications 4. Patient's obtunded so MPO 5. Bed rest 6. Morphine sublingual Keep comfortable 7. Anticipate her passing away shortly. Pupils are fixed and dilated and the CT scan was reviewed and she has a very large subdural hematoma. [place] Coma Scale is less than 4. - Mortality Measure Prognosis:: Poor
[2021-01-26] MEDS ORDERED: Morphine 10 MG/0.5 ML Oral Syringe SL PRN (14:39)
--- NOTE | 2021-01-27 19:11 | PCM.DCSUM1 ---
Discharge Summary - Hospital Course Free Text/Narrative:: Hospital course-she is very attended and [place] coma scale less than 4. Family elected comfort cares. So she was admitted and given morphine sublingual. And she within 4 hours of being here. The ER notes that she was in aspirin but the family confirmed that she was taking Coumadin. Brief History: This is an 89-cj[age]-z[age]-year-old female patient unwitnessed fall at [facility]. She is brought to the ER and found to have very large subdural hematoma on the right that was displacing her brain all the way to midline. She is on Coumadin for a heart valve prophylaxis. Diagnosis: Stroke: No - Discharge Data Discharge Date: 01/26/21 Discharge Disposition: 20 Condition: - Referral to Home Health Primary Care Physician: PCP None - Discharge Diagnosis/Problem(s) (1) Palliative care status SNOMED Code(s): 693897671 ICD Code: Z51.5 - ENCOUNTER FOR PALLIATIVE CARE Status: Acute (2) Coma SNOMED Code(s): 128191188 ICD Code: R40.20 - UNSPECIFIED COMA Status: Acute Qualifiers: Coma depth: [place] coma 3-8 Coma timing: at arrival to emergency department Qualified Code(s): R40.2432 - [place] coma scale score 3-8, at arrival to emergency department (3) DNR (do not resuscitate) Status: Acute (4) Subdural hematoma SNOMED Code(s): 245547223 ICD Code: S06.5X9A - TRAUM SUBDR HEM W LOC OF UNSP DURATION, INIT Status: Acute (5) Abrasion of face SNOMED Code(s): 185149673 ICD Code: S00.81XA - ABRASION OF OTHER PART OF HEAD, INITIAL ENCOUNTER Status: Acute - Discharge Plan *PRESCRIPTION DRUG MONITORING PROGRAM REVIEWED*: Not Applicable *COPY OF PRESCRIPTION DRUG MONITORING REPORT IN PATIENT MILAGROS: Not Applicable Home Medications: Home Meds Cholecalciferol (Vitamin D3) [Vitamin D3] 1,000 unit PO DAILY@1200 01/23/13 [History] Isosorbide Mononitrate [Isosorbide Mononitrate ER] 30 mg PO BID 01/23/13 [History] Metoprolol Tartrate 25 mg PO DAILY 01/23/13 [History] Cyanocobalamin (Vitamin B-12) [B-12 Compliance] 1,000 mcg IM Q30D 05/04/16 [History] OLANZapine [ZyPREXA] 15 mg PO BEDTIME 05/04/16 [History] Acetaminophen 650 mg PO BID 07/17/16 [History] Vilazodone [Viibryd] 40 mg PO BEDTIME 07/17/16 [History] Warfarin [Coumadin] 5 mg PO MO 07/17/16 [History] buPROPion [Wellbutrin XL] 300 mg PO DAILY 07/17/16 [History] polyethylene glycoL 3350 [MiraLAX] 17 gm PO DAILY 07/17/16 [History] Ferrous Sulfate 325 mg PO DAILY #30 tablet 07/18/16 [Rx] Potassium Chloride 8 meq PO DAILY 10/19/16 [History] Warfarin [Coumadin] 2.5 mg PO SUTUWETHFRSA MDD MON 10/19/16 [History] QUEtiapine [SEROquel] 12.5 mg PO BEDTIME 05/20/17 [History] lisinopriL [Prinivil] 5 mg PO DAILY 01/14/18 [History] Polyvinyl Alcohol/Povidone [Refresh Eye Drops] 1 drop .XX TID 01/22/18 [History] OLANZapine [Zyprexa] 15 mg PO BEDTIME 01/26/21 [History] Forms: ED Department Discharge Referrals: PCP,None [Primary Care Provider] - - Discharge Summary/Plan Comment DC Time >30 min.: No Total # of Minutes for Discharge Time: 5 - Patient Data Vitals - Most Recent: Last Vital Signs Temp 97.2 F 01/26/21 10:24 Pulse 103 H 01/26/21 10:24 Resp 15 01/26/21 10:24 BP 172/125 H 01/26/21 10:24 Pulse Ox 98 01/26/21 10:24 Med Orders - Current: Current Medications Discontinued Medications Morphine Sulfate (Morphine Oral Concentrate 20 Mg/Ml 30 Ml Bottle) 10 mg SL Q4H PRN PRN Reason: Pain Morphine Sulfate (Morphine 10 Mg/0.5 Ml Oral Syringe) 10 mg SL Q4H PRN PRN Reason: Pain Last Admin: 01/26/21 15:34 Dose: 10 mg Documented by:
== END 2021-01-26 16:55 | disposition expired | DRG 951 ==
LOC: FB.ED 10:16 → FB.MS 13:17
PROVIDERS: ADMIT Family Medicine; ATTEND Family Medicine
DX: Z51.5 Encounter for palliative care (principal); S06.5X9A Traumatic subdural hemorrhage with loss of consciousness of unspecified duration, initial encounter; R40.2432 Glasgow coma scale score 3-8, at arrival to emergency department; Z66 Do not resuscitate; M19.90 Unspecified osteoarthritis, unspecified site; F03.90 Unspecified dementia, unspecified severity, without behavioral disturbance, psychotic disturbance, mood disturbance, and anxiety; F32.A Depression, unspecified; I48.91 Unspecified atrial fibrillation; F32.9 Major depressive disorder, single episode, unspecified; E53.8 Deficiency of other specified B group vitamins; S00.81XA Abrasion of other part of head, initial encounter; I10 Essential (primary) hypertension; M25.561 Pain in right knee; Z88.8 Allergy status to other drugs, medicaments and biological substances; Z88.1 Allergy status to other antibiotic agents; Z88.2 Allergy status to sulfonamides; Z79.01 Long term (current) use of anticoagulants; Z79.899 Other long term (current) drug therapy; Z98.49 Cataract extraction status, unspecified eye; Z90.710 Acquired absence of both cervix and uterus; Z95.2 Presence of prosthetic heart valve; Z85.820 Personal history of malignant melanoma of skin; Z88.4 Allergy status to anesthetic agent; W19.XXXA Unspecified fall, initial encounter
CPT/HCPCS: 70450; 72125; 99285-25